=== PATIENT | male | born 1955 | race Caucasian/White ===

== ENCOUNTER 2016-11-21 13:00 | Emergency (ER) | payer MEDICARE ==
[2016-11-21] MEDS ORDERED: APRESOLINE IV ONE ×2 (14:20→17:54)
--- NOTE | 2016-11-21 14:37 | Emergency Department Report ---
HPI - General Chief Complaint: Hypoglycemia Time Seen by Provider: 11/21/16 13:40 - HPI HPI: This is a 61-year-old male presents to the emergency department from dialysis with complaint of generalized weakness, blurry vision and elevated blood pressure despite finishing dialysis. The patient's primary care doctor is Dr. Abdoul Peña and his automotive parts counter person is Dr. Knapp. The patient gets dialysis on Sunday, and Sunday and completed his dialysis today. The patient takes labetalol and hydralazine for his blood pressure but despite this, and despite dialysis, presents with very elevated blood pressure. The patient says that he has been feeling like he has been having blurry vision since dialysis today but denies any headache, slurred speech, chest pain, shortness of breath, fever, nausea or vomiting. He did not take anything and was not given anything for symptoms otherwise prior to presentation. ED Past Medical Hx - Past Medical History Previous Medical History?: Yes Hx Hypertension: Yes Hx Congestive Heart Failure: Yes Hx Diabetes: Yes (Type 2) Hx Deep Vein Thrombosis: Yes Hx GERD: Yes Hx Liver Disease: Yes Hx Renal Disease: Yes (Dialysis, sun, , sun) Hx HIV: No Additional medical history: Anemia and renal disease, iron deficiency, secondary hypoparathyroidism of renal origin - Surgical History Past Surgical History?: Yes Additional Surgical History: left arm AV grafts - Social History Smoking Status: Never Smoker Substance Use Type: None - Medications Home Medications: Home Medications Medication Instructions Recorded Confirmed Last Taken Type Calcium Acetate [Phoslo] 667 mg PO TID 01/08/16 11/07/16 11/06/16 History Folic Acid [Folvite] 1 mg PO QDAY 01/08/16 11/07/16 11/06/16 History hydrALAZINE [Apresoline TAB] 100 mg PO Q8HR #90 tablet 01/14/16 11/06/16 Rx Labetalol [Normodyne TAB] 200 mg PO TID 07/29/16 11/07/16 11/06/16 History Hydralazine HCl [Apresoline TAB] 100 mg PO Q8HR 11/07/16 11/07/16 11/06/16 History NIFEdipine XL [Procardia Xl] 60 mg PO BID 11/07/16 11/07/16 11/06/16 History Vit B Cplx #11/FA/C/Biot/Zn Ox 1 each PO DAILY 11/07/16 11/07/16 11/06/16 History [Dialyvite with Zinc Tablet] ED Review of Systems ROS: Stated complaint: LOW BLOOD SUGAR Other details as noted in HPI Comment: All other systems reviewed and negative Constitutional: weakness. denies: chills, fever Eyes: vision change (blurry vision). denies: eye pain, eye discharge ENT: denies: ear pain, throat pain Respiratory: denies: cough, shortness of breath, wheezing Cardiovascular: denies: chest pain, palpitations Gastrointestinal: denies: abdominal pain, nausea, diarrhea Genitourinary: denies: urgency, dysuria Musculoskeletal: denies: back pain, joint swelling, arthralgia Skin: denies: rash, lesions Neurological: weakness. denies: headache, numbness, paresthesias Physical Exam - Physical Exam Vital Signs: Vital Signs 11/21/16 13:42 Temperature 98.1 F Pulse Rate 84 Respiratory 16 Rate Blood Pressure 213/75 [Left] O2 Sat by Pulse 99 Oximetry Physical Exam: GENERAL: The patient is well-developed well-nourished. HEENT: Normocephalic. Atraumatic. Extraocular motions are intact. Patient has moist mucous membranes. Pupils equal reactive to light bilaterally. No nystagmus. Visual acuity: OD 20/70, OS 20/70 without glasses NECK: Supple. Trachea is midline. CHEST/LUNGS: Clear to auscultation. There is no respiratory distress noted. HEART/CARDIOVASCULAR: Regular. There is no tachycardia. There is no gallop rub or murmur. ABDOMEN: Abdomen is soft, nontender. Patient has normal bowel sounds. There is no abdominal distention. SKIN: Skin is warm and dry. NEURO: The patient is awake, alert, and oriented. The patient is cooperative. The patient has no focal neurologic deficits. The patient has normal speech. No gait abnormalities. MUSCULOSKELETAL: There is no tenderness or deformity. There is no limitation range of motion. There is no evidence of acute injury. Muscle strength 5 out of 5 upper and lower extremities bilaterally. Patient has a patent dialysis fistula to the left upper extremity. ED Course Vital Signs 11/21/16 13:42 Temperature 98.1 F Pulse Rate 84 Respiratory 16 Rate Blood Pressure 213/75 [Left] O2 Sat by Pulse 99 Oximetry ED Medical Decision Making - Lab Data Result diagrams: 11/21/16 14:09 11/21/16 14:09 - EKG Data -: EKG Interpreted by Me EKG shows normal: sinus rhythm, axis, intervals, QRS complexes (LVH), ST-T waves Rate: normal - EKG Data When compared to previous EKG there are: no significant change Interpretation: unchanged when compared t (11/07/16) - Radiology Data Radiology results: report reviewed CT of the head does not show any acute process including no hemorrhage, mass, shift, diffuse edema or skull fracture. - Medical Decision Making This is a 61-year-old male who presents to the emergency department from dialysis after he began feeling weak and fatigued as well as having some blurry vision. Patient was evaluated with physical exam, labs, imaging EKG. Physical exam the patient does not appear to have any focal, motor or sensory deficits other than he does have some decreased visual acuity. Cranial nerves II through XII are grossly intact. The patient says that he wears reading glasses but refused to wear them during the visual acuity test saying that he only uses it when he is reading close-up. He had a CT of the head without contrast that did not show any bleed, shift, mass or any acute process. EKG just shows some LVH. Patient's labs are mostly unremarkable other than the chronic kidney disease which is not new as the patient does dialysis. There is no hyperkalemia , signs of infection, electrolyte abnormality, glucose abnormalities. Patient did have some hypertensive issues here. He received a few doses of labetalol and/or hydralazine and his blood pressures come down to a much more reasonable level. It is still hypertensive but the patient has blood pressure medications that he is due to take this evening. Upon reevaluation the patient says that he is feeling much better. His vision is improved. There are no other deficits to show concern for acute stroke. The patient has been encouraged to follow-up with his primary care doctor and automotive parts counter person and has also been given a referral for a local education general manager. We discussed staying away from foods that are high in salt and caffeinated products to assist with the blood pressure. He will keep a blood pressure log. He will return to the ER with any worsening of symptoms or any acute distress. He understands and agrees to the plan. - Differential Diagnosis TIA, hypertensive urgency, hypoglycemia, dysrhythmia Critical Care Time: No Critical care attestation.: If time is entered above; I have spent that time in minutes in the direct care of this critically ill patient, excluding procedure time. ED Disposition Clinical Impression: Blurred vision, Hypertensive urgency, ESRD (end stage renal disease) on dialysis Disposition: DISCHARGED TO HOME OR SELFCARE Is pt being admited?: No Condition: Stable Instructions: Chronic Kidney Disease (ED), Hypertension (ED), Blurred Vision ( ED) Additional Instructions: Please follow-up with your primary care doctor as well as your automotive parts counter person in the next few days. I have also given you a referral for a local education general manager , Dr. Susan Kwon, to follow up regarding or blurred vision. Return to the emergency department with any worsening of your symptoms or any acute distress. Until you taking your blood pressure medications. Try to stay with him foods that are high in salt and caffeinated products to assist with your blood pressure. Referrals: PRIMARY CARE, [Primary Care Provider] - 3-5 Days JESI BLOOD MD [Staff Physician] - 3-5 Days SUSAN KWON MD [Staff Physician] - 3-5 Days Time of Disposition: 19:24 Print Language: PERSIAN
[2016-11-21 15:13] LABS: Basophils % (Auto) 0.4 % (0.0-1.8); Eosinophils % (Auto) 3.9 % (0.0-4.3); Hematocrit 33.1 % (35.5-45.6); Mean Corpuscular HGB Conc 33 % (32-34); Mean Corpuscular Hemoglobin 33 pg (28-32); Mean Corpuscular Volume 99 fl (84-94); Platelet Count 130 K/mm3 (140-440); Red Blood Count 3.35 M/mm3 (3.65-5.03); Red Cell Distribution Width 17.6 % (13.2-15.2)
[2016-11-21 15:21] LABS: Albumin/Globulin Ratio 1.3 %; BUN/Creatinine Ratio 4.66; Bilirubin,Total 0.4 mg/dL (0.1-1.2); Calcium 8.3 mg/dL (8.4-10.2); Chloride 93.8 mmol/L (98-107); Potassium 4.7 mmol/L (3.6-5.0); Total Protein 7.1 g/dL (6.3-8.2)
--- NOTE | 2016-11-21 15:33 | Cat Scan Report ---
CT HEAD WITHOUT CONTRAST: HISTORY: Visual changes, weakness. Serial contiguous axial images were obtained through the cranium. Intravenous contrast material was not administered. The ventricles are normal in size and appearance. There is no mass effect or midline shift. No areas of abnormally increased or decreased attenuation are seen. No mass lesion is seen. The mastoid air cells and visualized portions of the sinuses are normal. IMPRESSION: Cranial CT scan within normal limits. No significant change since 01/08/16.
[2016-11-21] MEDS ORDERED: NORMODYNE IV ONE (15:53)
[2016-11-21 18:21] VITALS: BP 171/59
== END 2016-11-21 20:25 | disposition home or self-care (01) ==
LOC: ED 13:00
DX: I12.0 Hypertensive chronic kidney disease with stage 5 chronic kidney disease or end stage renal disease (principal); N18.6 End stage renal disease; H53.8 Other visual disturbances; I50.9 Heart failure, unspecified; E11.9 Type 2 diabetes mellitus without complications; K21.9 Gastro-esophageal reflux disease without esophagitis; D64.9 Anemia, unspecified; Z99.2 Dependence on renal dialysis; Z86.718 Personal history of other venous thrombosis and embolism
CPT/HCPCS: 36415; 70450; 80053; 82805; 82962; 84443; 85025; 93005; 93010; 96374; 96375; 96376; 99285; J0360

== ENCOUNTER 2017-08-22 16:04 | Emergency (ER) | payer MEDICARE ==
[2017-08-22 16:26] VITALS: BP 125/45
[2017-08-22 16:49] LABS: Eosinophils % (Auto) 9.1 % (0.0-4.3); Hematocrit 32.4 % (35.5-45.6); Mean Corpuscular HGB Conc 34 % (32-34); Mean Corpuscular Hemoglobin 32 pg (28-32); Mean Corpuscular Volume 95 fl (84-94); Platelet Count 150 K/mm3 (140-440); Red Blood Count 3.41 M/mm3 (3.65-5.03); Red Cell Distribution Width 17.7 % (13.2-15.2); White Blood Count 3.7 K/mm3 (4.5-11.0)
[2017-08-22 17:06] LABS: Calcium 8.7 mg/dL (8.4-10.2); Chloride 93.7 mmol/L (98-107); Potassium 4.5 mmol/L (3.6-5.0)
--- NOTE | 2017-08-22 17:36 | XRay Report ---
FINAL REPORT PROCEDURE: XR CHEST ROUTINE 2V TECHNIQUE: Two view PA lateral chest HISTORY: Shortness of breath COMPARISON: No prior studies are available for comparison. FINDINGS: Top-normal heart size. Aortic atherosclerosis.Patchy infiltrative process in the right lower lung zone with small bilateral pleural effusions evident. Hyperinflated lungs with depressed hemidiaphragm on the right greater than left. Moderate central congestion. 1.3 x 1.4 centimeter nodular opacity projects in the left lower lung zone indeterminate for pulmonary nodule or nipple shadow.. No prior chest x-ray on file. Consider CT chest preferably with IV contrast to further evaluate as warranted. Underlying malignancy is not excludable and is the diagnosis of exclusion. IMPRESSION: Bilateral pleural effusions. Patchy infiltrate right lower lung zone. Nodular opacity projects over left lower lung zone
== END 2017-08-22 23:00 | disposition left against medical advice (07) ==
LOC: ED 16:04
DX: R00.2 Palpitations (principal); Z53.21 Procedure and treatment not carried out due to patient leaving prior to being seen by health care provider
CPT/HCPCS: 36415; 71020; 80048; 80061; 84484; 85025; 93005; 93010

== ENCOUNTER 2017-12-31 09:42 | Inpatient (IN) | payer MEDICARE ==
[2017-12-31] MEDS ORDERED: NACL 0.9% 1000 ML 1,000 ML IV ONE (10:26)
[2017-12-31] MEDS ORDERED: PEPCID IV ONE (10:27)
[2017-12-31] MEDS ORDERED: TORADOL IV ONE (10:27)
[2017-12-31] MEDS ORDERED: ZOFRAN IV ONE (10:27)
--- NOTE | 2017-12-31 10:29 | Emergency Department Report ---
Blank Doc - Documentation Documentation: Patient is a 62-year-old male who is presenting with 2 days of headache nausea without vomiting and diarrhea. Patient also has some crampy lower abdominal discomfort as well. Patient will be moved to the treatment room to undergo CT and received IV fluids meds for symptomatic relief.
[2017-12-31 10:46] LABS: Basophils # (Auto) 0.1 K/mm3 (0.0-0.1); Basophils % (Auto) 0.6 % (0.0-1.8); Eosinophils # (Auto) 0.3 K/mm3 (0.0-0.4); Eosinophils % (Auto) 3.4 % (0.0-4.3); Hemoglobin 12.8 gm/dl (11.8-15.2); Lymphocytes # (Auto) 0.6 K/mm3 (1.2-5.4); Lymphocytes % (Auto) 5.6 % (13.4-35.0); Mean Corpuscular HGB Conc 33 % (32-34); Mean Corpuscular Hemoglobin 33 pg (28-32); Mean Corpuscular Volume 99 fl (84-94); Monocytes # (Auto) 0.5 K/mm3 (0.0-0.8); Monocytes % (Auto) 4.9 % (0.0-7.3); Platelet Count 179 K/mm3 (140-440); Red Blood Count 3.95 M/mm3 (3.65-5.03); Red Cell Distribution Width 17.1 % (13.2-15.2)
[2017-12-31 11:01] LABS: Albumin 4.6 g/dL (3.9-5)
--- NOTE | 2017-12-31 11:22 | Emergency Department Report ---
ED Abdominal Pain HPI - General Chief Complaint: Nausea/Vomiting/Diarrhea Stated Complaint: WEAKNESS Time Seen by Provider: 12/31/17 10:20 Source: patient Mode of arrival: Ambulatory Limitations: Language Barrier - History of Present Illness Initial Comments: This is a 62-year-old male brought by daughter nontoxic, well nourished in appearance, no acute signs of distress presents to the ED with c/o of bilateral lower abdominal pain, nausea, vomiting, diarrhea and headache 2 days. Patient is limited in Syriac speaking several daughter is going to have any. Patient denies any radiation of pain. Patient denies any blurry vision or visual changes. Patient denies thunderclap headache. Patient denies any neck pain, stiff neck, chest pain, shortness of breathe, numbness, tingling. Patient denies any recent travels. Patient stated he is curretnly on dialysis with last one on Sunday and next schedule dialysis is Sunday. Patient denies any allergies. PMH includes CHF, DVT, diabetes, HIV, liver disease and renal disease. MD Complaint: abdominal pain -: days(s) (2) Location: LLQ, RLQ Radiation: none Migration to: no migration Severity: mild Severity scale (0 -10): 8 Quality: aching Consistency: constant Improves With: nothing Worsens With: nothing Associated Symptoms: nausea, vomiting, diarrhea. denies: fever, chills, constipation, dysuria, hematemesis, hematochezia, melena, hematuria, anorexia, syncope - Related Data Home Medications Medication Instructions Recorded Confirmed Last Taken Calcium Acetate [Phoslo] 667 mg PO TID 01/08/16 12/31/17 11/06/16 B Complex 11/Folic/C/Biot/Zinc 1 each PO DAILY 11/07/16 12/31/17 11/06/16 [Dialyvite with Zinc Tablet] NIFEdipine XL [Procardia Xl] 60 mg PO QDAY 11/07/16 12/31/17 11/06/16 Glimepiride [Amaryl] 4 mg PO BID 01/03/17 12/31/17 Unknown Lipase/Protease/Amylase [Jamaal Dr 1 cap PO TID 01/03/17 12/31/17 Unknown 24,000 Units Capsule] Omeprazole 40 mg PO QAM 05/03/17 04/30/18 Unknown Allergies Allergy/AdvReac Type Severity Reaction Status Date / Time No Known Allergies Allergy Verified 04/08/14 10:42 ED Review of Systems ROS: Stated complaint: WEAKNESS Other details as noted in HPI Constitutional: denies: chills, fever Eyes: denies: eye pain, eye discharge, vision change ENT: denies: ear pain, throat pain Respiratory: denies: cough, shortness of breath, wheezing Cardiovascular: denies: chest pain, palpitations Endocrine: no symptoms reported Gastrointestinal: abdominal pain, nausea, vomiting. denies: diarrhea, constipation Genitourinary: denies: urgency, dysuria Musculoskeletal: denies: back pain, joint swelling, arthralgia Skin: denies: rash, lesions Neurological: headache. denies: weakness, paresthesias Psychiatric: denies: anxiety, depression Hematological/Lymphatic: denies: easy bleeding, easy bruising ED Past Medical Hx - Past Medical History Hx Hypertension: Yes Hx Congestive Heart Failure: Yes Hx Diabetes: Yes (Type 2) Hx Deep Vein Thrombosis: Yes Hx GERD: Yes Hx Liver Disease: Yes Hx Renal Disease: Yes (Dialysis, tue, thur, sat) Hx HIV: No Additional medical history: Anemia and renal disease, iron deficiency, secondary hypoparathyroidism of renal origin - Surgical History Additional Surgical History: left arm AV grafts - Social History Smoking Status: Never Smoker Substance Use Type: None - Medications Home Medications: Home Medications Medication Instructions Recorded Confirmed Last Taken Type Calcium Acetate [Phoslo] 667 mg PO TID 01/08/16 12/31/17 11/06/16 History B Complex 11/Folic/C/Biot/Zinc 1 each PO DAILY 11/07/16 12/31/17 11/06/16 History [Dialyvite with Zinc Tablet] NIFEdipine XL [Procardia Xl] 60 mg PO QDAY 11/07/16 12/31/17 11/06/16 History Glimepiride [Amaryl] 4 mg PO BID 01/03/17 12/31/17 Unknown History Lipase/Protease/Amylase [[place] Dr 1 cap PO TID 01/03/17 12/31/17 Unknown History 24,000 Units Capsule] Omeprazole 40 mg PO QAM 01/03/17 12/31/17 Unknown History ED Physical Exam - General Limitations: Language Barrier General appearance: alert, in no apparent distress - Head Head exam: Present: atraumatic, normocephalic - Eye Eye exam: Present: normal appearance, PERRL, EOMI Pupils: Present: normal accommodation - ENT ENT exam: Present: normal exam, mucous membranes moist - Neck Neck exam: Present: normal inspection, full ROM. Absent: tenderness, meningismus, lymphadenopathy - Respiratory Respiratory exam: Present: normal lung sounds bilaterally. Absent: respiratory distress, wheezes, rales, rhonchi, stridor, chest wall tenderness, accessory muscle use, decreased breath sounds, prolonged expiratory - Cardiovascular Cardiovascular Exam: Present: regular rate, normal rhythm, normal heart sounds. Absent: bradycardia, tachycardia, irregular rhythm, systolic murmur, diastolic murmur, rubs, gallop - GI/Abdominal GI/Abdominal exam: Present: soft, tenderness (bilateral upper and lower abdomen) , normal bowel sounds. Absent: distended, guarding, rebound, rigid, diminished bowel sounds - Rectal Rectal exam: Present: deferred - Extremities Exam Extremities exam: Present: normal inspection, full ROM, normal capillary refill. Absent: tenderness, calf tenderness - Back Exam Back exam: Present: normal inspection, full ROM. Absent: tenderness, CVA tenderness (R), CVA tenderness (L), muscle spasm, paraspinal tenderness, vertebral tenderness, rash noted - Neurological Exam Neurological exam: Present: alert, oriented X3, CN II-XII intact, normal gait - Expanded Neurological Exam Expanded Patient oriented to: Present: person, place, time Cranial nerves: EOM's Intact: Normal, Gag Reflex: Normal, Facial Sensation: Normal Cerebellar function: Finger to Nose: Normal Upper motor neuron: Pronator Drift: Normal, Sensory Extinction: Normal Sensory exam: Upper Extremity Light Touch: Normal, Upper Extremity Pin Prick: Normal, Upper Extremity Temperature: Normal, UE 2 Point Discrimination: Normal, Lower Extremity Light Touch: Normal, Lower Extremity Pin Prick: Normal, Lower Extremity Temperature: Normal, LE 2 Point Discrimination: Normal Motor strength exam: RUE: 5, LUE: 5, RLE: 5, LLE: 5 Best Eye Response ([place]): (4) open spontaneously Best Motor Response ([place]): (6) obeys commands Best Verbal Response ([place]): (5) oriented [place] Total: 15 - Psychiatric Psychiatric exam: Present: normal affect, normal mood - Skin Skin exam: Present: warm, dry, intact, normal color. Absent: rash ED Course Vital Signs 12/31/17 09:57 Temperature 98.6 F Pulse Rate 73 Respiratory 18 Rate Blood Pressure 133/86 O2 Sat by Pulse 95 Oximetry - Reevaluation(s) Reevaluation #1: 12/31/17 11:29 Patient is speaking in full sentences with no signs of distress noted. - Consultations Consultation #1: 12/31/17 11:29 Patient has been consulted with Dr. Oconnor about patient history, physical exam , and labs and examined and screened patient and agrees to ED plan of care. Consultation #2: 12/31/17 13:[address] Sebas Lezama patients map maker and states that the patient on the hospitalist. Consultation #3: 12/31/17 13:47 Dr. Ledesma was consulted by patient history, physical exam, and laboratory findings an access patient on his services and instructed me to bridge orders with telemetry. 12/31/17 14:48 Dr. Ledesma requested me to put in a order for calcium gluconate 2,000 mg IV to be given now. ED Medical Decision Making - Lab Data Result diagrams: 12/31/17 10:36 12/31/17 10:36 - Medical Decision Making This is a 62-year-old male that presents with hyperkalemia, nausea, vomiting and abdominal pain. Patient stable was examined by me and Dr. Oconnor. As per Dr. Oconnor order, patient received [address] abd obtained with no acute abnormalities. Patient was discussed with his map maker advised patient to be admitted. Hospitalist Dr. Titus was consulted and accepts the patient under his services. EKG obtained. At time of admission, the patient does not seem toxic or ill in appearance. No acute signs of distress noted. Patient agrees to admission treatment plan of care. No further questions noted by the patient. Critical care attestation.: If time is entered above; I have spent that time in minutes in the direct care of this critically ill patient, excluding procedure time. ED Disposition Clinical Impression: Hyperkalemia Abdominal pain Qualifiers: Abdominal location: unspecified location Qualified Code(s): R10.9 - Unspecified abdominal pain Nausea & vomiting Qualifiers: Vomiting type: unspecified Vomiting Intractability: non-intractable Qualified Code(s): R11.2 - Nausea with vomiting, unspecified Disposition: DC-09 OP ADMIT IP TO THIS HOSP Is pt being admited?: Yes Condition: Stable Referrals: PRIMARY CARE,MD [Primary Care Provider] - 3-5 Days
--- NOTE | 2017-12-31 11:56 | Cat Scan Report ---
CT ABDOMEN PELVIS WITHOUT CONTRAST: HISTORY: Diarrhea, lower abdominal pain. COMPARISON: CT abdomen pelvis 11/02/13. TECHNIQUE: Helical CT in 1.25mm intervals without IV contrast. Sagittal and coronal reconstructions. FINDINGS: Lung bases: Mild cardiomegaly and small pericardial effusion. Small complex left pleural effusion with evidence of loculation. Subpleural scarring in the right lower lobe posteriorly. Liver: Normal size and attenuation. 1.9 cm right hepatic lobe hypodensity is identified in incompletely evaluated on noncontrast CT. This probably represents a cavernous hemangioma. This appears unchanged since the MR abdomen dated 02/04/14. Biliary system: Normal. Pancreas: Normal. Spleen: Normal. Kidneys/ureters/bladder: Both kidneys are atrophic with scattered tiny cysts. There are approximately 6 calyceal stones in the right kidney measuring up to 3 mm. There extensive bilateral renal vascular calcifications. No evidence for hydronephrosis. The ureters and bladder are unremarkable. The prostate gland is normal size. Adrenal glands: Normal. Aorta: Diffuse calcifications. The left common iliac stent is in place. No aneurysm. Intestines: Unremarkable given no oral contrast was administered. Appendix: Normal. Ascites: None. Adenopathy: None. Musculoskeletal: No suspicious bony lesion or fracture. Mild thoracolumbar spondylosis. IMPRESSION: No acute abdominal process is identified. Chronic renal parenchymal disease. Right nephrolithiasis, nonobstructing. Scattered tiny renal cysts. 1.9 cm right hepatic lobe hypodensity most consistent with a hemangioma. Diffuse aortic calcifications. Mild cardiomegaly, small pericardial effusion, and small complex left pleural effusion.
[2017-12-31] MEDS ORDERED: KIONEX PR ONE (12:39)
[2017-12-31] MEDS ORDERED: CALCIUM GLUCONATE 2,000 MG in NACL 0.9% 100 ML IV ONE (15:48)
[2017-12-31] MEDS ORDERED: NACL 0.9 (PRIMING MACHINE ONLY DIALYSIS) MC ONE (18:15)
--- NOTE | 2017-12-31 19:08 | Consultation ---
History of Present Illness - Reason for Consult Consult date: 12/31/17 - History of Present Illness pt with abdomen pain, nausea, vomitings, diarrhoea, hyperkalemia. pt was seen and examined during Hemodialysis around 6.30 PM. BP-179/73, P-65, afebrile. Reported to have diarrhoea during HD, had to go to rest room 4 times while on machine. Denies abdomen pain at present time Medications and Allergies Allergies Allergy/AdvReac Type Severity Reaction Status Date / Time No Known Allergies Allergy Verified 04/08/14 10:42 Home Medications Medication Instructions Recorded Confirmed Last Taken Type Calcium Acetate [Phoslo] 667 mg PO TID 01/08/16 12/31/17 11/06/16 History B Complex 11/Folic/C/Biot/Zinc 1 each PO DAILY 11/07/16 12/31/17 11/06/16 History [Dialyvite with Zinc Tablet] NIFEdipine XL [Procardia Xl] 60 mg PO QDAY 11/07/16 12/31/17 11/06/16 History Glimepiride [Amaryl] 4 mg PO BID 01/03/17 12/31/17 Unknown History Lipase/Protease/Amylase [Creon Dr 1 cap PO TID 01/03/17 12/31/17 Unknown History 24,000 Units Capsule] Omeprazole 40 mg PO QAM 01/03/17 12/31/17 Unknown History Exam - Constitutional Vitals: Temp Pulse Resp BP Pulse Ox 97.7 F 65 18 163/71 96 12/31/17 15:30 12/31/17 18:45 12/31/17 15:30 12/31/17 18:45 12/31/17 14:47 Results - Labs CBC & Chem 7: 12/31/17 10:36 12/31/17 10:36 Labs: Abnormal lab results 12/31/17 12/31/17 Range/Units 10:36 10:36 MCV 99 H (84-94) fl MCH 33 H (28-32) pg RDW 17.1 H (13.2-15.2) % Lymph % (Auto) 5.6 L (13.4-35.0) % Lymph # 0.6 L (1.2-5.4) K/mm3 Seg Neutrophils % 85.5 H (40.0-70.0) % Seg Neutrophils # 8.6 H (1.8-7.7) K/mm3 Potassium 6.4 H* (3.6-5.0) mmol/L Chloride 94.6 L (98-107) mmol/L BUN 59 H (9-20) mg/dL Creatinine 8.2 H (0.8-1.5) mg/dL Glucose 113 H (75-100) mg/dL Calcium 8.0 L (8.4-10.2) mg/dL Lipase 105 H (13-60) units/L
--- NOTE | 2018-01-01 00:01 | History and Physical Report ---
History of Present Illness Date of examination: 12/31/17 Date of admission: 12/31/17 13:45 Chief complaint: Chief complaint: Vomiting for 2 days. History of present illness: History of Present Illness 62-year-old male presents with nausea vomiting and headache for 2 days. Patient speaks Uzbek. No chest pain. No shortness of breath. Patient is on dialysis. Patient has a high potassium for which patient is being admitted and also symptomatic treatment for vomiting. Patient has a history of diabetes and end-stage renal disease and hypertension. No fever no chills. - Past Medical History Hx Hypertension: Yes Hx Congestive Heart Failure: Yes Hx Diabetes: Yes (Type 2) Hx Deep Vein Thrombosis: Yes Hx GERD: Yes Hx Liver Disease: Yes Hx Renal Disease: Yes (Dialysis, tue, thur, sat) Hx HIV: No Additional medical history: Anemia and renal disease, iron deficiency, secondary hypoparathyroidism of renal origin - Surgical History Additional Surgical History: left arm AV grafts - Social History Smoking Status: Never Smoker Substance Use Type: None Family history Hypertension - Medications Home Medications: Home Medications Medication Instructions Recorded Confirmed Last Taken Type Calcium Acetate [Phoslo] 667 mg PO TID 01/08/16 12/31/17 11/06/16 History B Complex 11/Folic/C/Biot/Zinc 1 each PO DAILY 11/07/16 12/31/17 11/06/16 History [Dialyvite with Zinc Tablet] NIFEdipine XL [Procardia Xl] 60 mg PO QDAY 11/07/16 12/31/17 11/06/16 History Glimepiride [Amaryl] 4 mg PO BID 01/03/17 12/31/17 Unknown History Lipase/Protease/Amylase [[place] Dr 1 cap PO TID 01/03/17 12/31/17 Unknown History 24,000 Units Capsule] Omeprazole 40 mg PO QAM 01/03/17 12/31/17 Unknown History Review of Systems ROS: Stated complaint: WEAKNESS Other details as noted in HPI Constitutional: denies: chills, fever Eyes: denies: eye pain, eye discharge, vision change ENT: denies: ear pain, throat pain Respiratory: denies: cough, shortness of breath, wheezing Cardiovascular: denies: chest pain, palpitations Endocrine: no symptoms reported Gastrointestinal: abdominal pain, nausea, vomiting. denies: diarrhea, constipation Genitourinary: denies: urgency, dysuria Musculoskeletal: denies: back pain, joint swelling, arthralgia Skin: denies: rash, lesions Neurological: headache. denies: weakness, paresthesias Psychiatric: denies: anxiety, depression Hematological/Lymphatic: denies: easy bleeding, easy bruising 14 point review of systems are otherwise negative Medications and Allergies Allergies Allergy/AdvReac Type Severity Reaction Status Date / Time No Known Allergies Allergy Verified 04/08/14 10:42 Home Medications Medication Instructions Recorded Confirmed Last Taken Type Calcium Acetate [Phoslo] 667 mg PO TID 01/08/16 12/31/17 11/06/16 History B Complex 11/Folic/C/Biot/Zinc 1 each PO DAILY 11/07/16 12/31/17 11/06/16 History [Dialyvite with Zinc Tablet] NIFEdipine XL [Procardia Xl] 60 mg PO QDAY 11/07/16 12/31/17 11/06/16 History Glimepiride [Amaryl] 4 mg PO BID 01/03/17 12/31/17 Unknown History Lipase/Protease/Amylase [Creon Dr 1 cap PO TID 01/03/17 12/31/17 Unknown History 24,000 Units Capsule] Omeprazole 40 mg PO QAM 01/03/17 12/31/17 Unknown History Exam - Physical Exam Narrative exam: Lying in bed comfortably - Constitutional Vitals: Temp Pulse Resp BP Pulse Ox 98.8 F 65 20 185/65 99 12/31/17 20:30 12/31/17 20:30 12/31/17 20:30 12/31/17 20:30 12/31/17 20:30 General appearance: Present: no acute distress, well-nourished - EENT Eyes: Present: PERRL ENT: hearing intact, clear oral mucosa - Neck Neck: Present: supple, normal ROM - Respiratory Respiratory effort: normal Respiratory: bilateral: CTA - Cardiovascular Heart rate: 80 Rhythm: regular Heart Sounds: Present: S1 & S2. Absent: rub, click - Extremities Extremities: no ischemia, pulses intact, pulses symmetrical, No edema Peripheral Pulses: within normal limits - Abdominal General gastrointestinal: Present: soft, non-tender, non-distended, normal bowel sounds Male genitourinary: Present: normal - Rectal Rectal Exam: deferred - Integumentary Integumentary: Present: clear, warm, dry - Musculoskeletal Musculoskeletal: gait normal, strength equal bilaterally - Psychiatric Psychiatric: appropriate mood/affect, intact judgment & insight - Neurologic Neurologic: CNII-XII intact, moves all extremities - Allied Health Allied health notes reviewed: nursing, case management Results - Labs CBC & Chem 7: 12/31/17 10:36 12/31/17 10:36 Labs: Laboratory Last Values WBC 10.0 K/mm3 (4.5-11.0) 12/31/17 10:36 RBC 3.95 M/mm3 (3.65-5.03) 12/31/17 10:36 Hgb 12.8 gm/dl (11.8-15.2) 12/31/17 10:36 Hct 39.0 % (35.5-45.6) 12/31/17 10:36 MCV 99 fl (84-94) H 12/31/17 10:36 MCH 33 pg (28-32) H 12/31/17 10:36 MCHC 33 % (32-34) 12/31/17 10:36 RDW 17.1 % (13.2-15.2) H 12/31/17 10:36 Plt Count 179 K/mm3 (140-440) 12/31/17 10:36 Lymph % (Auto) 5.6 % (13.4-35.0) L 12/31/17 10:36 [place] % (Auto) 4.9 % (0.0-7.3) 12/31/17 10:36 Eos % (Auto) 3.4 % (0.0-4.3) 12/31/17 10:36 Baso % (Auto) 0.6 % (0.0-1.8) 12/31/17 10:36 Lymph # 0.6 K/mm3 (1.2-5.4) L 12/31/17 10:36 [place] # 0.5 K/mm3 (0.0-0.8) 12/31/17 10:36 Eos # 0.3 K/mm3 (0.0-0.4) 12/31/17 10:36 Baso # 0.1 K/mm3 (0.0-0.1) 12/31/17 10:36 Seg Neutrophils % 85.5 % (40.0-70.0) H 12/31/17 10:36 Seg Neutrophils # 8.6 K/mm3 (1.8-7.7) H 12/31/17 10:36 Sodium 138 mmol/L (137-145) 12/31/17 10:36 Potassium 6.4 mmol/L (3.6-5.0) H* 12/31/17 10:36 Chloride 94.6 mmol/L (98-107) L 12/31/17 10:36 Carbon Dioxide 25 mmol/L (22-30) 12/31/17 10:36 Anion Gap 25 mmol/L 12/31/17 10:36 BUN 59 mg/dL (9-20) H 12/31/17 10:36 Creatinine 8.2 mg/dL (0.8-1.5) H 12/31/17 10:36 Estimated GFR 7 ml/min 12/31/17 10:36 BUN/Creatinine Ratio 7 % 12/31/17 10:36 Glucose 113 mg/dL (75-100) H 12/31/17 10:36 Calcium 8.0 mg/dL (8.4-10.2) L 12/31/17 10:36 Total Bilirubin 0.50 mg/dL (0.1-1.2) 12/31/17 10:36 AST 18 units/L (5-40) 12/31/17 10:36 ALT 14 units/L (7-56) 12/31/17 10:36 Alkaline Phosphatase 120 units/L (35-129) 12/31/17 10:36 Total Protein 7.7 g/dL (6.3-8.2) 12/31/17 10:36 Albumin 4.6 g/dL (3.9-5) 12/31/17 10:36 Albumin/Globulin Ratio 1.5 % 12/31/17 10:36 Lipase 105 units/L (13-60) H 12/31/17 10:36 - Imaging and Cardiology Imaging and Cardiology: Abdominal CT IMPRESSION: No acute abdominal process is identified. Chronic renal parenchymal disease. Right nephrolithiasis, nonobstructing. Scattered tiny renal cysts. 1.9 cm right hepatic lobe hypodensity most consistent with a hemangioma. Diffuse aortic calcifications. Mild cardiomegaly, small pericardial effusion, and small complex left pleural effusion. Assessment and Plan Advance Directives: Yes (full code) VTE prophylaxis?: Chemical ( full code) Plan of care discussed with patient/family: Yes - Patient Problems (1) Acute hyperkalemia Current Visit: No Status: Acute Plan to address problem: Patient given Kayexalate and calcium gluconate Recheck potassium Emergent dialysis if necessary (2) ESRD (end stage renal disease) on dialysis Current Visit: Yes Status: Chronic Plan to address problem: Nephrology consulted Hemodialysis to continue (3) Hypertension Current Visit: Yes Status: Chronic Qualifiers: Hypertension type: essential hypertension Qualified Code(s): I10 - Essential (primary) hypertension Plan to address problem: Continue antihypertensives in the form of nifedipine etc. (4) Type 2 diabetes mellitus Current Visit: Yes Status: Chronic Plan to address problem: Continue oral hypoglycemics and coverage Check hemoglobin A1c (5) GERD (gastroesophageal reflux disease) Current Visit: Yes Status: Chronic Qualifiers: Esophagitis presence: without esophagitis Qualified Code(s): K21.9 - Gastro -esophageal reflux disease without esophagitis Plan to address problem: Continue PPIs (6) DVT prophylaxis Current Visit: Yes Status: Acute Plan to address problem: Continue heparin
[2018-01-01] MEDS ORDERED: SODIUM CHLORIDE FLUSH SYRINGE 10 ML IV PRN (00:05)
[2018-01-01] MEDS ORDERED: ZOFRAN IV PRN (00:05)
[2018-01-01] MEDS ORDERED: MORPHINE IV PRN (00:05)
[2018-01-01] MEDS ORDERED: PERCOCET 5/325 PO PRN (00:05)
[2018-01-01] MEDS ORDERED: TYLENOL PO PRN (00:05)
[2018-01-01] MEDS ORDERED: AMBIEN PO PRN (00:05)
[2018-01-01] MEDS ORDERED: PROTEASE PO SCH (08:00)
[2018-01-01] MEDS ORDERED: LIPASE PO SCH (08:00)
[2018-01-01] MEDS ORDERED: AMYLASE PO SCH (08:00)
--- NOTE | 2018-01-01 08:55 | Consultation ---
RENAL CONSULTATION REASON FOR CONSULTATION: Renal failure and hyperkalemia. HISTORY OF PRESENT ILLNESS: This 62-year-old male with end-stage renal disease, hypertension, was brought to the Emergency Room with complaints of nausea, diarrhea, and headache and upper mid abdomen pain. CT scan of the abdomen and pelvis without IV contrast was reported to have no acute abdominal process. Nonobstructing right nephrolithiasis, diffuse aortic calcifications. The patient [facility] on Sunday, , Sunday. His last treatment was the day before yesterday, uneventful. The patient admits attending a big birthday republican in the family. PAST MEDICAL HISTORY: Hypertension, end-stage renal disease. PERSONAL HISTORY: Denies smoking, alcohol, or drug abuse. FAMILY HISTORY: No family history of kidney failure. ALLERGIES: No known allergies. HOME MEDICATIONS: Reviewed as noted in the chart. REVIEW OF SYSTEMS: The patient denies nausea at present time. He received Kayexalate in the Emergency Room with complains of having diarrhea. The patient feels like a crampy mid upper abdomen pain. Denies GI bleeding. Denies cold, cough, or sore throat. Denies difficulty swallowing. Denies fever or chills. Other review of systems reviewed and negative. PHYSICAL EXAMINATION: GENERAL: The patient is alert, oriented, not in acute distress. VITAL SIGNS: Blood pressure 163/71, pulse 65, afebrile. Lips noncyanotic. NECK: No JVD, no thyroid enlargement. LUNGS: Diminished breath sounds in bases. HEART: S1, S2 regular. No pericardial rub. ABDOMEN: Soft, bowel sounds present, nontender, no masses palpable. EXTREMITIES: No significant edema. Left upper arm AV access is functioning. LABORATORY DATA: WBC 10.0, hemoglobin 12.8, hematocrit 39.0, platelets 179. Sodium 138, potassium 6.4, chloride 94, CO2 of 25, BUN 59, creatinine 8.2, glucose 113, calcium 8.0, lipase 105. ASSESSMENT AND PLAN: 1. Hyperkalemia. 2. End-stage renal disease. 3. Epigastric pain. 4. Nausea, vomiting, and diarrhea. 4. Hypertension. Hemodialysis as ordered. Monitor potassium levels closely. Advised the patient on 2 gram potassium diet. Adjust medications per renal function. The patient had GI evaluation in the past. JOB# [id number] TERI/JOSE ANTONIO
--- NOTE | 2018-01-01 09:18 | Progress Note ---
Assessment and Plan - Patient Problems (1) Abdominal pain Current Visit: Yes Status: Acute Qualifiers: Abdominal location: unspecified location Qualified Code(s): R10.9 - Unspecified abdominal pain Plan to address problem: H/O chronic pancreatitis- on creon -G.I follow up (2) Hyperkalemia Current Visit: Yes Status: Acute Plan to address problem: S/P HD yesterday-follow up on labs (3) ESRD (end stage renal disease) on dialysis Current Visit: Yes Status: Chronic Plan to address problem: HD on T/T/S (4) GERD (gastroesophageal reflux disease) Current Visit: Yes Status: Chronic Qualifiers: Esophagitis presence: without esophagitis Qualified Code(s): K21.9 - Gastro -esophageal reflux disease without esophagitis (5) Hypertension Current Visit: Yes Status: Chronic Qualifiers: Hypertension type: essential hypertension Qualified Code(s): I10 - Essential (primary) hypertension Plan to address problem: [id number] BP meds (6) Type 2 diabetes mellitus Current Visit: Yes Status: Chronic Plan to address problem: S/P hypoglycemia today-adjust meds. Avoid Hypoglycemia Subjective Date of service: 01/01/18 Interval history: alert, oriented, denies CP or SOB. C/O intermittent nausea, upper mid abdomen pain. Noted high BP readings today Objective - Vital Signs Vital signs: Vital Signs - 12hr 01/01/18 07:51 Temperature 98.0 F Pulse Rate 72 Respiratory 16 Rate Blood Pressure 235/81 O2 Sat by Pulse 95 Oximetry - General Appearance General appearance: well-developed EENT: mucous membranes moist Neck: no JVD Respiratory: Present: Clear to Ascultation Cardiology: regular Gastrointestinal: normoactive bowel sounds Musculoskeletal: other (no edema, AV access has bruit and thrill) Psychiatric: mood/affect appropriate, cooperative - Lab 12/31/17 10:36 12/31/17 10:36 Most recent lab results Calcium 8.0 mg/dL (8.4-10.2) L 12/31/17 10:36
[2018-01-01] MEDS: CREON DR 12,000 UNITS PO SCH ×3 (09:40→18:53)
[2018-01-01] MEDS: PHOSLO PO SCH ×3 (09:40→18:53)
[2018-01-01] MEDS: PROTONIX PO SCH (09:41)
[2018-01-01] MEDS ORDERED: NON-FORMULARY (Omeprazole [Omeprazole] 40 MG) PO SCH (10:00)
[2018-01-01] MEDS: PROCARDIA XL PO SCH (10:04)
[2018-01-01] MEDS: SODIUM CHLORIDE FLUSH SYRINGE 10 ML IV SCH ×2 (10:05→21:31)
[2018-01-01] MEDS: AMARYL PO SCH ×2 (10:08→18:53)
[2018-01-01] MEDS ORDERED: LABETALOL 200 MG PO SCH (10:27)
[2018-01-01] MEDS ORDERED: NON-FORMULARY (Hydralazine 50 MG) PO SCH (10:30)
[2018-01-01] MEDS ORDERED: CREON DR 12,000 UNITS PO SCH (11:30)
[2018-01-01] MEDS: NORMODYNE PO SCH ×2 (13:14→21:30)
[2018-01-01] MEDS: APRESOLINE PO SCH ×2 (13:20→21:29)
[2018-01-01] MEDS ORDERED: CREON 24000 UNIT PO SCH (14:00)
[2018-01-01] MEDS ORDERED: D50W (25GM) Syringe IV PRN (16:36)
--- NOTE | 2018-01-01 16:46 | Progress Note ---
Assessment and Plan Assessment and plan: 62-year-old male presents with nausea vomiting and headache for 2 days. Patient speaks Ukrainian. No chest pain. No shortness of breath. Patient is on dialysis. Patient has a high potassium for which patient is being admitted and also symptomatic treatment for vomiting. Patient has a history of diabetes and end-stage renal disease and hypertension and chronic pancreatitis. No fever no chills. 1. Acute hyperkalemia 2. Chronic pancreatitis 3. Peritoneal irritation secondary to chronic reactive pancreatitis 4. Gastroenteritis 5. Hypertensive urgency 6. Diabetes mellitus with hyperglycemia 7. GERD Plan * Continue supportive care patient's symptoms appear to be improving still with elevated blood pressure * Reviewed blood pressure medication with the patient that we'll restart blood pressure medications also discussed with assembler cards and announcements * Patient received Kayexalate, calcium gluconate on admission weight recheck potassium level. We'll also plan dialysis in a.m per Nephrologsit * Restart Creon * Continue home meds * DVT/GI prophy * Anticipate discharge in AM * Plan discussed with the patient and Nursing staff in addition to [employer] Information [employer] Supervisor. History Interval history: Patient is seen today for: Nausea with vomiting chronic pancreatitis, End stage renal disease, hypertension Seen and examined at bedside; 24hour events reviewed; nursing staff ; no adverse overnight events reported to me; Denies any chest pain, nausea, vomiting , diarrhea No fever noted , blood pressure remains elevated Hospitalist Physical - Physical exam Narrative exam: VITAL SIGNS: Reviewed. GENERAL: The patient appeared well nourished and normally developed. Vital signs as documented. HEAD: No signs of head trauma. EYES: Pupils are equal. Extraocular motions intact. EARS: Hearing grossly intact. MOUTH: Oropharynx is normal. NECK: No adenopathy, no JVD. CHEST: Chest with clear breath sounds bilaterally. No wheezes, rales, or rhonchi. CARDIAC: Regular rate and rhythm. S1 and S2, without murmurs, gallops, or rubs. VASCULAR: No Edema. Peripheral pulses normal and equal in all extremities. ABDOMEN: Soft, without detectable tenderness. No sign of distention. No rebound or guarding, and no masses palpated. Bowel Sounds normal. MUSCULOSKELETAL: Good range of motion of all major joints. Extremities without clubbing, cyanosis or edema. NEUROLOGIC EXAM: Alert and oriented x 3. No focal sensory or strength deficits. Speech normal. Follows commands. PSYCHIATRIC: Mood normal. SKIN: No rash or lesions. - Constitutional Vitals: Temp Pulse Resp BP Pulse Ox 98.4 F 71 16 177/65 97 01/01/18 15:21 01/01/18 15:21 01/01/18 15:21 01/01/18 15:21 01/01/18 15:21 General appearance: Present: no acute distress, well-nourished Results - Labs CBC & Chem 7: 12/31/17 10:36 12/31/17 10:36 Labs: Laboratory Last Values WBC 10.0 K/mm3 (4.5-11.0) 12/31/17 10:36 RBC 3.95 M/mm3 (3.65-5.03) 12/31/17 10:36 Hgb 12.8 gm/dl (11.8-15.2) 12/31/17 10:36 Hct 39.0 % (35.5-45.6) 12/31/17 10:36 MCV 99 fl (84-94) H 12/31/17 10:36 MCH 33 pg (28-32) H 12/31/17 10:36 MCHC 33 % (32-34) 12/31/17 10:36 RDW 17.1 % (13.2-15.2) H 12/31/17 10:36 Plt Count 179 K/mm3 (140-440) 12/31/17 10:36 Lymph % (Auto) 5.6 % (13.4-35.0) L 12/31/17 10:36 [place] % (Auto) 4.9 % (0.0-7.3) 12/31/17 10:36 Eos % (Auto) 3.4 % (0.0-4.3) 12/31/17 10:36 Baso % (Auto) 0.6 % (0.0-1.8) 12/31/17 10:36 Lymph # 0.6 K/mm3 (1.2-5.4) L 12/31/17 10:36 [place] # 0.5 K/mm3 (0.0-0.8) 12/31/17 10:36 Eos # 0.3 K/mm3 (0.0-0.4) 12/31/17 10:36 Baso # 0.1 K/mm3 (0.0-0.1) 12/31/17 10:36 Seg Neutrophils % 85.5 % (40.0-70.0) H 12/31/17 10:36 Seg Neutrophils # 8.6 K/mm3 (1.8-7.7) H 12/31/17 10:36 Sodium 138 mmol/L (137-145) 12/31/17 10:36 Potassium 6.4 mmol/L (3.6-5.0) H* 12/31/17 10:36 Chloride 94.6 mmol/L (98-107) L 12/31/17 10:36 Carbon Dioxide 25 mmol/L (22-30) 12/31/17 10:36 Anion Gap 25 mmol/L 12/31/17 10:36 BUN 59 mg/dL (9-20) H 12/31/17 10:36 Creatinine 8.2 mg/dL (0.8-1.5) H 12/31/17 10:36 Estimated GFR 7 ml/min 12/31/17 10:36 BUN/Creatinine Ratio 7 % 12/31/17 10:36 Glucose 113 mg/dL (75-100) H 12/31/17 10:36 POC Glucose 152 (70-105) H 01/01/18 11:44 Hemoglobin A1c 4.4 % (4-6) 01/01/18 00:27 Calcium 8.0 mg/dL (8.4-10.2) L 12/31/17 10:36 Total Bilirubin 0.50 mg/dL (0.1-1.2) 12/31/17 10:36 AST 18 units/L (5-40) 12/31/17 10:36 ALT 14 units/L (7-56) 12/31/17 10:36 Alkaline Phosphatase 120 units/L (35-129) 12/31/17 10:36 Total Protein 7.7 g/dL (6.3-8.2) 12/31/17 10:36 Albumin 4.6 g/dL (3.9-5) 12/31/17 10:36 Albumin/Globulin Ratio 1.5 % 12/31/17 10:36 Lipase 105 units/L (13-60) H 12/31/17 10:36
[2018-01-01] MEDS: HumuLIN R SUB-Q SCH (21:31)
--- NOTE | 2018-01-02 07:34 | Discharge Summary ---
Providers - Providers Date of Admission: 12/31/17 13:45 Attending physician: SAKSHI HOOKS MD 01/01/18 00:05 Consult to Physician [CONS] Routine Comment: Consulting Provider: CLAYTON FRANCO Physician Instructions: Reason For Exam: ESRD Primary care physician: LABORATORY COORDINATOR Hospitalization Reason for admission: abdominal pain Condition: Stable Hospital course: 62-year-old male presents with nausea vomiting and headache for 2 days. Patient speaks Tunisian. No chest pain. No shortness of breath. Patient is on dialysis. Patient has a high potassium for which patient is being admitted and also symptomatic treatment for vomiting. Patient has a history of diabetes and end-stage renal disease and hypertension and chronic pancreatitis. No fever no chills. Patient admission was noted to have acute hyperkalemia should he proceeded to have the is done complications. His nausea vomiting resolved. He was restarted on his creatinine. He does have a history of chronic pancreatitis. He did report 1 episode of constipation for which he received his lactulose. He was seen by chemical process project engineer who started to diet at this time abdominal pain has resolved. His stable for discharge Discharge diagnosis 1. Acute hyperkalemia 2. Chronic pancreatitis 3. Peritoneal irritation secondary to chronic reactive pancreatitis 4. Gastroenteritis 5. Hypertensive urgency 6. Diabetes mellitus with hyperglycemia 7. GERD 8. Sirs secondary to noninfectious etiology Disposition: DC-01 TO HOME OR SELFCARE Time spent for discharge: 35 MINS Core Measure Documentation - Palliative Care Palliative Care/ Comfort Measures: Not Applicable - Core Measures Any of the following diagnoses?: none - VTE Discharge Requirements Deep Vein Thrombosis/Pulmonary Embolism Present on Admission: No Exam - Physical Exam Narrative exam: VITAL SIGNS: Reviewed. GENERAL: The patient appeared well nourished and normally developed. Vital signs as documented. HEAD: No signs of head trauma. EYES: Pupils are equal. Extraocular motions intact. EARS: Hearing grossly intact. MOUTH: Oropharynx is normal. NECK: No adenopathy, no JVD. CHEST: Chest with clear breath sounds bilaterally. No wheezes, rales, or rhonchi. CARDIAC: Regular rate and rhythm. S1 and S2, without murmurs, gallops, or rubs. VASCULAR: No Edema. Peripheral pulses normal and equal in all extremities. ABDOMEN: Soft, without detectable tenderness. No sign of distention. No rebound or guarding, and no masses palpated. Bowel Sounds normal. MUSCULOSKELETAL: Good range of motion of all major joints. Extremities without clubbing, cyanosis or edema. NEUROLOGIC EXAM: Alert and oriented x 3. No focal sensory or strength deficits. Speech normal. Follows commands. PSYCHIATRIC: Mood normal. SKIN: No rash or lesions. - Constitutional Vitals: Temp Pulse Resp BP Pulse Ox 97.8 F 67 18 136/46 97 01/02/18 04:03 01/02/18 04:03 01/02/18 04:03 01/02/18 04:03 01/02/18 04:03 Plan Activity: advance as tolerated, fall precautions Diet: diabetic, renal Special Instructions: record daily weights, record daily BP diary, record blood sugar diary Follow up with: PRIMARY CAREMD [Primary Care Provider] - 3-5 Days CLAYTON FRANCO MD [Staff Physician] - 7 Days
[2018-01-02] MEDS: PHOSLO PO SCH ×2 (08:56→13:07)
[2018-01-02] MEDS: AMARYL PO SCH (08:56)
[2018-01-02] MEDS: CREON DR 12,000 UNITS PO SCH ×2 (08:56→13:07)
[2018-01-02] MEDS: NORMODYNE PO SCH (08:57)
[2018-01-02 09:14] LABS: Eosinophils # (Auto) 0.4 K/mm3 (0.0-0.4); Eosinophils % (Auto) 8.9 % (0.0-4.3); Hematocrit 36.4 % (35.5-45.6); Hemoglobin 12.1 gm/dl (11.8-15.2); Lymphocytes # (Auto) 0.5 K/mm3 (1.2-5.4); Lymphocytes % (Auto) 10.2 % (13.4-35.0); Mean Corpuscular HGB Conc 33 % (32-34); Mean Corpuscular Hemoglobin 32 pg (28-32); Mean Corpuscular Volume 98 fl (84-94); Monocytes # (Auto) 0.3 K/mm3 (0.0-0.8); Monocytes % (Auto) 5.9 % (0.0-7.3); Platelet Count 156 K/mm3 (140-440); Red Blood Count 3.73 M/mm3 (3.65-5.03); Red Cell Distribution Width 16.8 % (13.2-15.2)
[2018-01-02 09:34] LABS: Albumin 4.1 g/dL (3.9-5); Calcium 7.4 mg/dL (8.4-10.2)
[2018-01-02] MEDS: HumuLIN R SUB-Q SCH ×2 (09:55→12:46)
[2018-01-02 09:59] VITALS: BP 176/62
[2018-01-02] MEDS: PROCARDIA XL PO SCH (10:00)
[2018-01-02] MEDS: APRESOLINE PO SCH (10:00)
[2018-01-02] MEDS: PROTONIX PO SCH (10:01)
[2018-01-02] MEDS: SODIUM CHLORIDE FLUSH SYRINGE 10 ML IV SCH (10:04)
== END 2018-01-02 14:20 | disposition home or self-care (01) | DRG 640 ==
LOC: ED 09:42 → 3A 13:45
PROVIDERS: ADMIT Internal Medicine; ATTEND Internal Medicine
PROC: 5A1D70Z Performance of Urinary Filtration, Intermittent, Less than 6 Hours Per Day (ICD-10-PCS; principal; 2017-12-31)
DX: E87.5 Hyperkalemia (principal); K65.9 Peritonitis, unspecified; N18.6 End stage renal disease; K86.1 Other chronic pancreatitis; R65.10 Systemic inflammatory response syndrome (SIRS) of non-infectious origin without acute organ dysfunction; I13.2 Hypertensive heart and chronic kidney disease with heart failure and with stage 5 chronic kidney disease, or end stage renal disease; Z82.49 Family history of ischemic heart disease and other diseases of the circulatory system; I16.0 Hypertensive urgency; K21.9 Gastro-esophageal reflux disease without esophagitis; K52.9 Noninfective gastroenteritis and colitis, unspecified; Z99.2 Dependence on renal dialysis; E11.22 Type 2 diabetes mellitus with diabetic chronic kidney disease; K59.00 Constipation, unspecified; E11.65 Type 2 diabetes mellitus with hyperglycemia; I50.9 Heart failure, unspecified; Z86.718 Personal history of other venous thrombosis and embolism; K76.9 Liver disease, unspecified; E20.8 Other hypoparathyroidism
CPT/HCPCS: 36415; 74176; 80053; 82962; 83036; 83690; 85025; 93005; 93010; 96374; 96375; J0610; J1815; J1885; J2405; J7030

== ENCOUNTER 2018-01-08 01:07 | Emergency (ER) | payer MEDICARE ==
[2018-01-08 03:04] LABS: Basophils # (Auto) 0.1 K/mm3 (0.0-0.1); Basophils % (Auto) 0.8 % (0.0-1.8); Eosinophils # (Auto) 0.5 K/mm3 (0.0-0.4); Eosinophils % (Auto) 7.4 % (0.0-4.3); Hematocrit 34.9 % (35.5-45.6); Lymphocytes # (Auto) 0.5 K/mm3 (1.2-5.4); Lymphocytes % (Auto) 8.5 % (13.4-35.0); Mean Corpuscular HGB Conc 35 % (32-34); Mean Corpuscular Hemoglobin 34 pg (28-32); Mean Corpuscular Volume 97 fl (84-94); Monocytes # (Auto) 0.4 K/mm3 (0.0-0.8); Monocytes % (Auto) 6.2 % (0.0-7.3); Platelet Count 171 K/mm3 (140-440); Red Blood Count 3.59 M/mm3 (3.65-5.03); Red Cell Distribution Width 16.7 % (13.2-15.2)
[2018-01-08 03:13] LABS: Albumin 4.4 g/dL (3.9-5); Calcium 8.2 mg/dL (8.4-10.2)
[2018-01-08] MEDS ORDERED: ZOFRAN ODT PO ONE (09:28)
[2018-01-08] MEDS ORDERED: TYLENOL PO ONE (09:28)
[2018-01-08] MEDS ORDERED: CARAFATE PO ONE (09:28)
--- NOTE | 2018-01-08 09:31 | Emergency Department Report ---
ED General Adult HPI - General Chief complaint: Abdominal Pain Stated complaint: ABDOMINAL PAIN,NAUSEA Time Seen by Provider: 01/08/18 09:05 Source: patient, RN notes reviewed, old records reviewed Mode of arrival: Ambulatory Limitations: Other (this provider is conversational in faroese) - History of Present Illness Initial comments: This is a 62-year-old male. Patient has a past medical history of end-stage renal disease on dialysis. He typically gets dialysis Sunday, , Sunday. Patient recently admitted to this hospital at the end of December for end-stage renal disease and hyperkalemia. He had a CAT scan of the abdomen and pelvis at that time which demonstrated no significant or acute findings. The patient presents to the ER with a complaint of abdominal cramping and nausea. His symptoms are aching and intermittent, do not radiate anywhere, and do not have exacerbating or relieving factors. The patient to me denies chest pain, shortness of breath. Patient denies constipation. Patient further indicates he is anuric -: Gradual Location: abdomen Radiation: non-radiation Severity scale (0 -10): 3 Quality: aching Consistency: intermittent Improves with: none Worsens with: none Associated Symptoms: nausea/vomiting. denies: confusion, chest pain, cough, diaphoresis, fever/chills, headaches, loss of appetite, malaise, rash, seizure, shortness of breath, syncope, weakness - Related Data Home Medications Medication Instructions Recorded Confirmed Last Taken Calcium Acetate [Phoslo] 667 mg PO TID 01/08/16 12/31/17 11/06/16 B Complex 11/Folic/C/Biot/Zinc 1 each PO DAILY 11/07/16 12/31/17 11/06/16 [Dialyvite with Zinc Tablet] NIFEdipine XL [Procardia Xl] 60 mg PO QDAY 11/07/16 12/31/17 11/06/16 Glimepiride [Amaryl] 4 mg PO BID 01/03/17 12/31/17 Unknown Lipase/Protease/Amylase [Jamaal Peralta 1 cap PO TID 01/03/17 12/31/17 Unknown 24,000 Units Capsule] Omeprazole 40 mg PO QAM 01/03/17 12/31/17 Unknown Jamaal Peralta 24,000 Units Capsule 1 cap PO 01/01/18 12/31/17 07:00 1 Folic Acid 1 mg PO DAILY 01/01/18 01/01/18 12/31/17 07:00 Labetalol 200 mg PO TID 01/01/18 01/01/18 12/31/17 07:00 200 Loperamide 2 mg PO PRN 01/01/18 12/31/17 07:00 2 mg Vitamin D2 1 PO 1XW 01/01/18 12/29/17 07:00 1 hydrALAZINE 50 mg PO BID 01/01/18 01/01/18 12/31/17 07:00 Previous Rx's Medication Instructions Recorded Last Taken Type Acetaminophen [Tylenol Arthritis] 650 mg PO Q6HR PRN #30 tablet.er 01/08/18 Unknown Rx Ondansetron [Zofran Odt] 4 mg PO Q8HR PRN #20 tab.rapdis 01/08/18 Unknown Rx Allergies Allergy/AdvReac Type Severity Reaction Status Date / Time No Known Allergies Allergy Verified 04/08/14 10:42 ED Review of Systems ROS: Stated complaint: ABDOMINAL PAIN,NAUSEA Other details as noted in HPI Constitutional: denies: fever Eyes: denies: vision change ENT: denies: epistaxis Respiratory: cough Cardiovascular: denies: chest pain Gastrointestinal: abdominal pain Genitourinary: denies: dysuria Musculoskeletal: denies: arthralgia Neurological: denies: weakness ED Past Medical Hx - Past Medical History Previous Medical History?: Yes Hx Hypertension: Yes Hx Congestive Heart Failure: Yes Hx Diabetes: Yes Hx Deep Vein Thrombosis: Yes Hx GERD: Yes Hx Liver Disease: Yes Hx Renal Disease: Yes (Dialysis, tue, thur, sat) Hx Asthma: No Hx COPD: No Hx HIV: No Additional medical history: Anemia and renal disease, iron deficiency, secondary hypoparathyroidism of renal origin - Surgical History Past Surgical History?: Yes Additional Surgical History: left arm AV grafts. eyes - Social History Smoking Status: Never Smoker Substance Use Type: None - Medications Home Medications: Home Medications Medication Instructions Recorded Confirmed Last Taken Type Calcium Acetate [Phoslo] 667 mg PO TID 01/08/16 12/31/17 11/06/16 History B Complex 11/Folic/C/Biot/Zinc 1 each PO DAILY 11/07/16 12/31/17 11/06/16 History [Dialyvite with Zinc Tablet] NIFEdipine XL [Procardia Xl] 60 mg PO QDAY 11/07/16 12/31/17 11/06/16 History Glimepiride [Amaryl] 4 mg PO BID 01/03/17 12/31/17 Unknown History Lipase/Protease/Amylase [Jamaal Peralta 1 cap PO TID 01/03/17 12/31/17 Unknown History 24,000 Units Capsule] Omeprazole 40 mg PO QAM 01/03/17 12/31/17 Unknown History Jamaal Peralta 24,000 Units Capsule 1 cap PO 01/01/18 12/31/17 07:00 History 1 Folic Acid 1 mg PO DAILY 01/01/18 01/01/18 12/31/17 07:00 History Labetalol 200 mg PO TID 01/01/18 01/01/18 12/31/17 07:00 History 200 Loperamide 2 mg PO PRN 01/01/18 12/31/17 07:00 History 2 mg Vitamin D2 1 PO 1XW 01/01/18 12/29/17 07:00 History 1 hydrALAZINE 50 mg PO BID 01/01/18 01/01/18 12/31/17 07:00 History Acetaminophen [Tylenol Arthritis] 650 mg PO Q6HR PRN #30 tablet.er 01/08/18 Unknown Rx Ondansetron [Zofran Odt] 4 mg PO Q8HR PRN #20 tab.rapdis 01/08/18 Unknown Rx ED Physical Exam - General Limitations: Language Barrier General appearance: alert, in no apparent distress - Head Head exam: Present: atraumatic, normocephalic - Eye Eye exam: Present: normal appearance, EOMI - ENT ENT exam: Present: normal exam, normal orophraynx, mucous membranes moist, normal external ear exam - Neck Neck exam: Present: normal inspection, full ROM - Respiratory Respiratory exam: Present: normal lung sounds bilaterally. Absent: respiratory distress - Cardiovascular Cardiovascular Exam: Present: regular rate, normal rhythm, normal heart sounds. Absent: systolic murmur, diastolic murmur, rubs, gallop - GI/Abdominal GI/Abdominal exam: Present: soft, normal bowel sounds. Absent: distended, tenderness, guarding, rebound, rigid, pulsatile mass - Rectal Rectal exam: Present: deferred - Extremities Exam Extremities exam: Present: normal inspection, full ROM, other (upper extremity AV fistula with no redness, pus or streaking). Absent: pedal edema, joint swelling, calf tenderness - Back Exam Back exam: Present: normal inspection, full ROM. Absent: tenderness, CVA tenderness (R), paraspinal tenderness, vertebral tenderness - Neurological Exam Neurological exam: Present: alert, oriented X3, CN II-XII intact, other (my normal). Absent: motor sensory deficit - Psychiatric Psychiatric exam: Present: normal affect, normal mood - Skin Skin exam: Present: warm, dry, intact, normal color. Absent: rash ED Course Vital Signs 01/08/18 01/08/18 01/08/18 02:18 07:15 09:39 Temperature 97.5 F L 97.4 F L 97.7 F Pulse Rate 80 74 76 Respiratory 18 18 18 Rate Blood Pressure 197/78 170/61 Blood Pressure 126/47 [Left] O2 Sat by Pulse 97 98 95 Oximetry ED Medical Decision Making - Lab Data Result diagrams: 01/08/18 02:41 01/08/18 02:41 Vital Signs 01/08/18 01/08/18 02:18 07:15 Temperature 97.5 F L 97.4 F L Pulse Rate 80 74 Respiratory 18 18 Rate Blood Pressure 197/78 170/61 O2 Sat by Pulse 97 98 Oximetry Vital Signs 01/08/18 01/08/18 02:18 07:15 Temperature 97.5 F L 97.4 F L Pulse Rate 80 74 Respiratory 18 18 Rate Blood Pressure 197/78 170/61 O2 Sat by Pulse 97 98 Oximetry Lab Results 01/08/18 01/08/18 Range/Units 02:41 02:41 WBC 6.3 (4.5-11.0) K/mm3 RBC 3.59 L (3.65-5.03) M/mm3 Hgb 12.0 (11.8-15.2) gm/dl Hct 34.9 L (35.5-45.6) % MCV 97 H (84-94) fl MCH 34 H (28-32) pg MCHC 35 H (32-34) % RDW 16.7 H (13.2-15.2) % Plt Count 171 (140-440) K/mm3 Lymph % (Auto) 8.5 L (13.4-35.0) % Dent % (Auto) 6.2 (0.0-7.3) % Eos % (Auto) 7.4 H (0.0-4.3) % Baso % (Auto) 0.8 (0.0-1.8) % Lymph # 0.5 L (1.2-5.4) K/mm3 Dent # 0.4 (0.0-0.8) K/mm3 Eos # 0.5 H (0.0-0.4) K/mm3 Baso # 0.1 (0.0-0.1) K/mm3 Seg Neutrophils % 77.1 H (40.0-70.0) % Seg Neutrophils # 4.9 (1.8-7.7) K/mm3 Sodium 139 (137-145) mmol/L Potassium 5.1 H (3.6-5.0) mmol/L Chloride 94.4 L (98-107) mmol/L Carbon Dioxide 22 (22-30) mmol/L Anion Gap 28 mmol/L BUN 85 H (9-20) mg/dL Creatinine 10.8 H (0.8-1.5) mg/dL Estimated GFR 5 ml/min BUN/Creatinine Ratio 8 % Glucose 100 (75-100) mg/dL Calcium 8.2 L (8.4-10.2) mg/dL Total Bilirubin 0.50 (0.1-1.2) mg/dL AST 15 (5-40) units/L ALT 10 (7-56) units/L Alkaline Phosphatase 108 (35-129) units/L NT-Pro-B Natriuret Pep 41278 H (0-900) pg/mL Total Protein 7.5 (6.3-8.2) g/dL Albumin 4.4 (3.9-5) g/dL Albumin/Globulin Ratio 1.4 % Lipase 75 H (13-60) units/L - EKG Data -: EKG Interpreted by Me - Radiology Data Radiology results: report reviewed, image reviewed nt Report Referring Physician: PAULETTE YOUNG Patient Name: JOSS WEBER Date of : 1955 Sex: Male Report Date: 2017-12-31 Report Status: Finalized Findings [facility] [address] [place] [address] Cat Scan Report Signed Patient: JOSS WEBER MR#: [id number] : 1955 Acct:[id number] Age/Sex: 62 / M ADM Date: 12/31/17 Loc: ED Attending Dr: Ordering Physician: PAULETTE YOUNG MD Date of Service: 12/31/17 Procedure(s): CT abdomen pelvis wo con Accession Number(s): [id number] cc: PAULETTE YOUNG MD CT ABDOMEN PELVIS WITHOUT CONTRAST: HISTORY: Diarrhea, lower abdominal pain. COMPARISON: CT abdomen pelvis 11/02/13. TECHNIQUE: Helical CT in 1.25mm intervals without IV contrast. Sagittal and coronal reconstructions. FINDINGS: Lung bases: Mild cardiomegaly and small pericardial effusion. Small complex left pleural effusion with evidence of loculation. Subpleural scarring in the right lower lobe posteriorly. Liver: Normal size and attenuation. 1.9 cm right hepatic lobe hypodensity is identified in incompletely evaluated on noncontrast CT. This probably represents a cavernous hemangioma. This appears unchanged since the MR abdomen dated 02/04/14. Biliary system: Normal. Pancreas: Normal. Spleen: Normal. Kidneys/ureters/bladder: Both kidneys are atrophic with scattered tiny cysts. There are approximately 6 calyceal stones in the right kidney measuring up to 3 mm. There extensive bilateral renal vascular calcifications. No evidence for hydronephrosis. The ureters and bladder are unremarkable. The prostate gland is normal size. Adrenal glands: Normal. Aorta: Diffuse calcifications. The left common iliac stent is in place. No aneurysm. Intestines: Unremarkable given no oral contrast was administered. Appendix: Normal. Ascites: None. Adenopathy: None. Musculoskeletal: No suspicious bony lesion or fracture. Mild thoracolumbar spondylosis. IMPRESSION: No acute abdominal process is identified. Chronic renal parenchymal disease. Right nephrolithiasis, nonobstructing. Scattered tiny renal cysts. 1.9 cm right hepatic lobe hypodensity most consistent with a hemangioma. Diffuse aortic calcifications. Mild cardiomegaly, small pericardial effusion, and small complex left pleural effusion. Transcribed By: TTR Dictated By: HARJINDER RUIZ JR, MD Electronically Authenticated By: HARJINDER RUIZ JR, MD Signed Date/Time: 12/31/17 1147 DD/ 1140 TD/TT: 12/31/17 1147 - Medical Decision Making Differential diagnosis, including but not limited to: Constipation, chronic abdominal pain, chronic pancreatitis Assessment and plan: 62-year-old male with acute on chronic abdominal pain. He is afebrile with reassuring vital signs with the exception of elevated blood pressure. From a volume standpoint, patient appears to be euvolemic. He recently had a CAT scan of the abdomen and pelvis which was unremarkable for acute findings, and his abdomen is soft and benign, with no rebound, guarding or peritoneal signs. His hypertension improved, he was able to tolerate oral feeds without difficulty. I discussed his case with covering nephrology, Dr. Cherie Motley, who indicates the patient should follow up with his dialysis as soon as possible today for routine outpatient dialysis. Critical care attestation.: If time is entered above; I have spent that time in minutes in the direct care of this critically ill patient, excluding procedure time. ED Disposition Clinical Impression: End-stage renal disease, Abdominal pain Disposition: TO HOME OR SELFCARE Is pt being admited?: No Does the pt Need Aspirin: No Condition: Stable Instructions: Chronic Kidney Disease (ED) Additional Instructions: Continue current outpatient medications. Take the pain medication, nausea medication as needed/directed. Follow up as soon as possible today for your routine outpatient dialysis. This physician has specifically discussed her case with Dr. Riley, who has in turn contacted your private dialysis facility, and they will accommodate you with an appointment today as long as you show up as soon as possible. Return to the ER right away with new pain, worsened pain, migration of pain, fevers, chills, intractable nausea or vomiting , confusion, inability to tolerate liquid feeds. Continuar con los medicamentos actuales para pacientes ambulatorios. [place] el medicamento para el dolor, medicamentos para nuseas segn sea necesario / dirigido. Tracey el seguimiento lo ms pronto posible hoy para burt dilisis de rutina para pacientes ambulatorios. Vicky mdico dao discutido especficamente burt demond con el Dr. Riley, quien a burt vez se dao puesto en contacto con burt centro de dilisis privado, y lo atendern con bernice bev hoy siempre que se presente lo antes posible. Regrese a la landy de urgencias inmediatamente con dolor nuevo, dolor empeorado, migracin de dolor, fiebre, escalofros, nuseas o vmitos intratables, confusin, incapacidad para tolerar los lquidos. Referrals: KATERINA FULTON MD [Primary Care Provider] - 3-5 Days CLAYTON FRANCO MD [Staff Physician] - 3-5 Days
[2018-01-08 11:35] VITALS: BP 131/47
== END 2018-01-08 11:34 | disposition home or self-care (01) ==
LOC: ED 01:07
DX: E11.22 Type 2 diabetes mellitus with diabetic chronic kidney disease (principal); I13.2 Hypertensive heart and chronic kidney disease with heart failure and with stage 5 chronic kidney disease, or end stage renal disease; I50.9 Heart failure, unspecified; N18.6 End stage renal disease; K21.9 Gastro-esophageal reflux disease without esophagitis; Z86.718 Personal history of other venous thrombosis and embolism; Z99.2 Dependence on renal dialysis
CPT/HCPCS: 36415; 80053; 83690; 83880; 85025; 93005; 93010; 99283; Q0162

== ENCOUNTER 2018-02-20 09:58 | Emergency (ER) | payer MEDICARE ==
[2018-02-20 10:09] VITALS: BP 155/63
--- NOTE | 2018-02-20 11:48 | Emergency Department Report ---
ED Male HPI - General Chief complaint: Urogenital-Male Stated complaint: BLOOD IN URINE Time Seen by Provider: 02/20/18 10:45 Source: patient, family Mode of arrival: Ambulatory Limitations: Language Barrier - History of Present Illness Initial comments: Patient is a 62-year-old male past medical history of end-stage renal disease who is on dialysis who also has a history of diabetes high and heart failure who is complaining of hematuria. Patient does not make urine anymore's secondary to his end-stage renal disease but for the past week he's had small amounts of blood in the urine. Patient states this is painless there is no abdominal pain there's no testicular pain. Patient is not on blood thinners at this time. Patient is not having any pain with bowel movements. Patient states very small amounts of blood or able to come out at a time. - Related Data Home Medications Medication Instructions Recorded Confirmed Last Taken Calcium Acetate [Phoslo] 667 mg PO TID 01/08/16 12/31/17 11/06/16 B Complex 11/Folic/C/Biot/Zinc 1 each PO DAILY 11/07/16 12/31/17 11/06/16 [Dialyvite with Zinc Tablet] NIFEdipine XL [Procardia Xl] 60 mg PO QDAY 11/07/16 12/31/17 11/06/16 Glimepiride [Amaryl] 4 mg PO BID 01/03/17 12/31/17 Unknown Lipase/Protease/Amylase [Jamaal Peralta 1 cap PO TID 01/03/17 12/31/17 Unknown 24,000 Units Capsule] Omeprazole 40 mg PO QAM 01/03/17 12/31/17 Unknown Jamaal Peralta 24,000 Units Capsule 1 cap PO 01/01/18 12/31/17 07:00 1 Folic Acid 1 mg PO DAILY 01/01/18 01/01/18 12/31/17 07:00 Labetalol 200 mg PO TID 01/01/18 01/01/18 12/31/17 07:00 200 Loperamide 2 mg PO PRN 01/01/18 12/31/17 07:00 2 mg Vitamin D2 1 PO 1XW 01/01/18 12/29/17 07:00 1 hydrALAZINE 50 mg PO BID 01/01/18 01/01/18 12/31/17 07:00 Previous Rx's Medication Instructions Recorded Last Taken Type Acetaminophen [Tylenol Arthritis] 650 mg PO Q6HR PRN #30 tablet.er 01/08/18 Unknown Rx Ondansetron [Zofran Odt] 4 mg PO Q8HR PRN #20 tab.rapdis 01/08/18 Unknown Rx Ciprofloxacin HCl [Cipro] 500 mg PO BID #14 tablet 02/20/18 Unknown Rx Allergies Allergy/AdvReac Type Severity Reaction Status Date / Time No Known Allergies Allergy Verified 02/20/18 10:09 ED Review of Systems ROS: Stated complaint: BLOOD IN URINE Other details as noted in HPI Comment: All other systems reviewed and negative ED Past Medical Hx - Past Medical History Previous Medical History?: Yes Hx Hypertension: Yes Hx Congestive Heart Failure: Yes Hx Diabetes: Yes Hx Deep Vein Thrombosis: Yes Hx GERD: Yes Hx Liver Disease: Yes Hx Renal Disease: Yes (Dialysis, tue, thur, sat) Hx Asthma: No Hx COPD: No Hx HIV: No Additional medical history: Anemia and renal disease, iron deficiency, secondary hypoparathyroidism of renal origin - Surgical History Past Surgical History?: Yes Additional Surgical History: left arm AV grafts. eyes - Social History Smoking Status: Never Smoker Substance Use Type: None - Medications Home Medications: Home Medications Medication Instructions Recorded Confirmed Last Taken Type Calcium Acetate [Phoslo] 667 mg PO TID 01/08/16 12/31/17 11/06/16 History B Complex 11/Folic/C/Biot/Zinc 1 each PO DAILY 11/07/16 12/31/17 11/06/16 History [Dialyvite with Zinc Tablet] NIFEdipine XL [Procardia Xl] 60 mg PO QDAY 11/07/16 12/31/17 11/06/16 History Glimepiride [Amaryl] 4 mg PO BID 01/03/17 12/31/17 Unknown History Lipase/Protease/Amylase [Jamaal Peralta 1 cap PO TID 01/03/17 12/31/17 Unknown History 24,000 Units Capsule] Omeprazole 40 mg PO QAM 01/03/17 12/31/17 Unknown History Jamaal Peralta 24,000 Units Capsule 1 cap PO 01/01/18 12/31/17 07:00 History 1 Folic Acid 1 mg PO DAILY 01/01/18 01/01/18 12/31/17 07:00 History Labetalol 200 mg PO TID 01/01/18 01/01/18 12/31/17 07:00 History 200 Loperamide 2 mg PO PRN 01/01/18 12/31/17 07:00 History 2 mg Vitamin D2 1 PO 1XW 01/01/18 12/29/17 07:00 History 1 hydrALAZINE 50 mg PO BID 01/01/18 01/01/18 12/31/17 07:00 History Acetaminophen [Tylenol Arthritis] 650 mg PO Q6HR PRN #30 tablet.er 01/08/18 Unknown Rx Ondansetron [Zofran Odt] 4 mg PO Q8HR PRN #20 tab.rapdis 01/08/18 Unknown Rx Ciprofloxacin HCl [Cipro] 500 mg PO BID #14 tablet 02/20/18 Unknown Rx ED Physical Exam - General Limitations: Language Barrier General appearance: alert, in no apparent distress - Head Head exam: Present: atraumatic, normocephalic - Eye Eye exam: Present: normal appearance - ENT ENT exam: Present: mucous membranes moist - Neck Neck exam: Present: normal inspection - Respiratory Respiratory exam: Present: normal lung sounds bilaterally. Absent: respiratory distress, wheezes, rales, rhonchi - Cardiovascular Cardiovascular Exam: Present: regular rate, normal rhythm. Absent: systolic murmur, diastolic murmur, rubs, gallop - GI/Abdominal GI/Abdominal exam: Present: soft, normal bowel sounds. Absent: distended, tenderness - Rectal Rectal exam: Present: deferred - Extremities Exam Extremities exam: Present: normal inspection - Back Exam Back exam: Present: normal inspection - Neurological Exam Neurological exam: Present: alert, oriented X3 - Psychiatric Psychiatric exam: Present: normal affect, normal mood - Skin Skin exam: Present: warm, dry, intact, normal color. Absent: rash ED Course Vital Signs 02/20/18 10:01 Temperature 97.9 F Pulse Rate 64 Respiratory 16 Rate Blood Pressure 155/63 O2 Sat by Pulse 97 Oximetry ED Medical Decision Making - Medical Decision Making Patient was able to get a small amount of blood to come out the penis but it was too small amount for analysis. On the differential would be a urinary tract infection cystitis or prostatitis. Patient will be started on antibiotics empirically and have a follow-up with urology. Patient may need a cystoscope and also to rule out a malignancy Critical care attestation.: If time is entered above; I have spent that time in minutes in the direct care of this critically ill patient, excluding procedure time. ED Disposition Clinical Impression: Hematuria Qualifiers: Hematuria type: gross Qualified Code(s): R31.0 - Gross hematuria Disposition: DC-01 TO HOME OR SELFCARE Is pt being admited?: No Does the pt Need Aspirin: No Condition: Stable Prescriptions: Ciprofloxacin HCl [Cipro] 500 mg PO BID #14 tablet Referrals: DAYRON FERRELL MD [Staff Physician] - 3-5 Days
== END 2018-02-20 11:55 | disposition home or self-care (01) ==
LOC: ED 09:58
DX: R31.0 Gross hematuria (principal); I10 Essential (primary) hypertension; I50.9 Heart failure, unspecified; E11.9 Type 2 diabetes mellitus without complications; K21.9 Gastro-esophageal reflux disease without esophagitis; D64.9 Anemia, unspecified; Z99.2 Dependence on renal dialysis
CPT/HCPCS: 99282

== ENCOUNTER 2018-02-26 11:47 | Emergency (ER) | payer MEDICARE ==
[2018-02-26 12:01] VITALS: BP 170/64
[2018-02-26 13:19] LABS: Basophils % (Auto) 0.7 % (0.0-1.8); Eosinophils # (Auto) 0.3 K/mm3 (0.0-0.4); Eosinophils % (Auto) 6.5 % (0.0-4.3); Hematocrit 33.3 % (35.5-45.6); Hemoglobin 11.3 gm/dl (11.8-15.2); Lymphocytes # (Auto) 0.4 K/mm3 (1.2-5.4); Lymphocytes % (Auto) 9.5 % (13.4-35.0); Mean Corpuscular HGB Conc 34 % (32-34); Mean Corpuscular Hemoglobin 32 pg (28-32); Mean Corpuscular Volume 94 fl (84-94); Monocytes # (Auto) 0.2 K/mm3 (0.0-0.8); Monocytes % (Auto) 5.3 % (0.0-7.3); Platelet Count 112 K/mm3 (140-440); Red Blood Count 3.55 M/mm3 (3.65-5.03); Red Cell Distribution Width 15.5 % (13.2-15.2)
[2018-02-26 13:56] LABS: Calcium 8.7 mg/dL (8.4-10.2)
== END 2018-02-26 13:42 | disposition left against medical advice (07) ==
LOC: ED 11:47
DX: R42 Dizziness and giddiness (principal); R06.02 Shortness of breath; Z99.2 Dependence on renal dialysis; Z53.21 Procedure and treatment not carried out due to patient leaving prior to being seen by health care provider
CPT/HCPCS: 36415; 80048; 84484; 85025; 93005; 93010

== ENCOUNTER 2018-09-18 18:11 | Inpatient (IN) | payer MEDICARE ==
[2018-09-18] MEDS ORDERED: ASPIRIN PO ONE (18:29)
[2018-09-18 18:49] LABS: Basophils % (Auto) 0.8 % (0.0-1.8); Eosinophils # (Auto) 0.4 K/mm3 (0.0-0.4); Eosinophils % (Auto) 5.5 % (0.0-4.3); Hematocrit 31.1 % (35.5-45.6); Hemoglobin 10.7 gm/dl (11.8-15.2); Lymphocytes # (Auto) 0.7 K/mm3 (1.2-5.4); Lymphocytes % (Auto) 10.3 % (13.4-35.0); Mean Corpuscular HGB Conc 34 % (32-34); Mean Corpuscular Volume 94 fl (84-94); Monocytes # (Auto) 0.5 K/mm3 (0.0-0.8); Monocytes % (Auto) 8.1 % (0.0-7.3); Platelet Count 150 K/mm3 (140-440); Red Blood Count 3.31 M/mm3 (3.65-5.03); Red Cell Distribution Width 16.9 % (13.2-15.2)
[2018-09-18 19:09] LABS: Alanine Aminotransferase 8 units/L (7-56); Albumin 4.6 g/dL (3.9-5)
[2018-09-18 19:19] LABS: Bilirubin,Direct < 0.2 mg/dL (0-0.2)
[2018-09-18 19:31] LABS: INR 1.08 (0.87-1.13)
[2018-09-18 19:32] LABS: Partial Thromboplastin Time 31.2 Sec. (24.2-36.6)
[2018-09-18 19:44] LABS: Calcium 8.5 mg/dL (8.4-10.2); Chol/HDL Ratio 3.37 %
[2018-09-18] MEDS ORDERED: KIONEX PO ONE ×2 (20:17→22:28)
--- NOTE | 2018-09-18 20:18 | Emergency Department Report ---
- General Chief complaint: Chest Pain Stated complaint: CHEST PAIN Time Seen by Provider: 09/18/18 18:47 Source: patient, family, old records reviewed Mode of arrival: Ambulatory Limitations: Language Barrier - History of Present Illness Initial comments: 62-year-old male with a past medical history of end-stage renal disease (dialysis Sunday, , and Sunday), left leg DVT, diabetes, GERD, and hypertension presents to the hospital complains of generalized weakness and shortness of breath today. Patient denies pain in his chest but states that he feels like his heart is going to stop. Mild nausea and mild shortness of breath reported. Patient has been compliant with his dialysis and is due again tomorrow. Patient did travel back and forth to [place] in August. Patient does not make urine. Last cardiac workup on record was from dialysis and and patient had a stress test. Medical Technologist Blood Bank: Dr. Lezama - Related Data Home Medications Medication Instructions Recorded Confirmed Last Taken Calcium Acetate [Phoslo] 667 mg PO TID 01/08/16 12/31/17 11/06/16 B Complex 11/Folic/C/Biot/Zinc 1 each PO DAILY 11/07/16 12/31/17 11/06/16 [Dialyvite with Zinc Tablet] NIFEdipine XL [Procardia Xl] 60 mg PO QDAY 11/07/16 12/31/17 11/06/16 Glimepiride [Amaryl] 4 mg PO BID 01/03/17 12/31/17 Unknown Lipase/Protease/Amylase [Jamaal Peralta 1 cap PO TID 01/03/17 12/31/17 Unknown 24,000 Units Capsule] Omeprazole 40 mg PO QAM 01/03/17 12/31/17 Unknown Jamaal Peralta 24,000 Units Capsule 1 cap PO 01/01/18 12/31/17 07:00 1 Folic Acid 1 mg PO DAILY 01/01/18 01/01/18 12/31/17 07:00 Labetalol 200 mg PO TID 01/01/18 01/01/18 12/31/17 07:00 200 Loperamide 2 mg PO PRN 01/01/18 12/31/17 07:00 2 mg Vitamin D2 1 PO 1XW 01/01/18 12/29/17 07:00 1 hydrALAZINE 50 mg PO BID 01/01/18 01/01/18 12/31/17 07:00 Allergies Allergy/AdvReac Type Severity Reaction Status Date / Time No Known Allergies Allergy Verified 02/20/18 10:09 ED Review of Systems ROS: Stated complaint: CHEST PAIN Other details as noted in HPI ED Past Medical Hx - Past Medical History Hx Hypertension: Yes Hx Congestive Heart Failure: Yes Hx Diabetes: Yes Hx Deep Vein Thrombosis: Yes Hx GERD: Yes Hx Liver Disease: Yes Hx Renal Disease: Yes (Dialysis, tue, thur, sat) Hx Asthma: No Hx COPD: No Hx HIV: No Additional medical history: Anemia and renal disease, iron deficiency, secondary hypoparathyroidism of renal origin - Surgical History Past Surgical History?: Yes Additional Surgical History: left arm AV grafts. eyes - Social History Smoking Status: Never Smoker Substance Use Type: None - Medications Home Medications: Home Medications Medication Instructions Recorded Confirmed Last Taken Type Calcium Acetate [Phoslo] 667 mg PO TID 01/08/16 12/31/17 11/06/16 History B Complex 11/Folic/C/Biot/Zinc 1 each PO DAILY 11/07/16 12/31/17 11/06/16 History [Dialyvite with Zinc Tablet] NIFEdipine XL [Procardia Xl] 60 mg PO QDAY 11/07/16 12/31/17 11/06/16 History Glimepiride [Amaryl] 4 mg PO BID 01/03/17 12/31/17 Unknown History Lipase/Protease/Amylase [Jamaal Peralta 1 cap PO TID 01/03/17 12/31/17 Unknown History 24,000 Units Capsule] Omeprazole 40 mg PO QAM 01/03/17 12/31/17 Unknown History Jamaal Peralta 24,000 Units Capsule 1 cap PO 01/01/18 12/31/17 07:00 History 1 Folic Acid 1 mg PO DAILY 01/01/18 01/01/18 12/31/17 07:00 History Labetalol 200 mg PO TID 01/01/18 01/01/18 12/31/17 07:00 History 200 Loperamide 2 mg PO PRN 01/01/18 12/31/17 07:00 History 2 mg Vitamin D2 1 PO 1XW 01/01/18 12/29/17 07:00 History 1 hydrALAZINE 50 mg PO BID 0501/01/18 12/31/17 07:00 History ED Physical Exam - General Limitations: Language Barrier ED Course Vital Signs 09/18/18 09/18/18 18:24 19:36 Temperature 97.9 F Pulse Rate 66 Respiratory 20 18 Rate Blood Pressure 105/41 O2 Sat by Pulse 97 98 Oximetry - Consultations Consultation #1: 09/18/18 20:17 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 Lezama who recommends Kayexalate 15 g pill will arrange for dialysis in the a.m. ED Medical Decision Making - Lab Data Result diagrams: 09/18/18 18:40 09/18/18 18:40 Lab Results 09/18/18 09/18/18 09/18/18 Range/Units 18:40 18:40 18:45 WBC 6.4 (4.5-11.0) K/mm3 RBC 3.31 L (3.65-5.03) M/mm3 Hgb 10.7 L (11.8-15.2) gm/dl Hct 31.1 L (35.5-45.6) % MCV 94 (84-94) fl MCH 32 (28-32) pg MCHC 34 (32-34) % RDW 16.9 H (13.2-15.2) % Plt Count 150 (140-440) K/mm3 Lymph % (Auto) 10.3 L (13.4-35.0) % [place] % (Auto) 8.1 H (0.0-7.3) % Eos % (Auto) 5.5 H (0.0-4.3) % Baso % (Auto) 0.8 (0.0-1.8) % Lymph # 0.7 L (1.2-5.4) K/mm3 [place] # 0.5 (0.0-0.8) K/mm3 Eos # 0.4 (0.0-0.4) K/mm3 Baso # 0.0 (0.0-0.1) K/mm3 Seg Neutrophils % 75.3 H (40.0-70.0) % Seg Neutrophils # 4.8 (1.8-7.7) K/mm3 PT (12.2-14.9) Sec. INR (0.87-1.13) APTT (24.2-36.6) Sec. D-Dimer (0-234) ng/mlDDU Sodium 137 (137-145) mmol/L Potassium 5.4 H (3.6-5.0) mmol/L Chloride 92.7 L (98-107) mmol/L Carbon Dioxide 20 L (22-30) mmol/L Anion Gap 30 mmol/L BUN 50 H (9-20) mg/dL Creatinine 9.4 H (0.8-1.5) mg/dL Estimated GFR 6 ml/min BUN/Creatinine Ratio 5 % Glucose 145 H (75-100) mg/dL Calcium 8.5 (8.4-10.2) mg/dL Total Bilirubin 0.40 (0.1-1.2) mg/dL Direct Bilirubin < 0.2 (0-0.2) mg/dL Indirect Bilirubin 0.2 mg/dL AST 21 (5-40) units/L ALT 8 (7-56) units/L Alkaline Phosphatase 88 (35-129) units/L Troponin T 0.044 H (0.00-0.029) ng/mL Total Protein 7.2 (6.3-8.2) g/dL Albumin 4.6 (3.9-5) g/dL Albumin/Globulin Ratio 1.8 % Triglycerides 157 H (2-149) mg/dL Cholesterol 125 (50-199) mg/dL LDL Cholesterol Direct 73 (50-130) mg/dL HDL Cholesterol 37 L (40-59) mg/dL Cholesterol/HDL Ratio 3.37 % 09/18/18 09/18/18 Range/Units 18:57 18:57 WBC (4.5-11.0) K/mm3 RBC (3.65-5.03) M/mm3 Hgb (11.8-15.2) gm/dl Hct (35.5-45.6) % MCV (84-94) fl MCH (28-32) pg MCHC (32-34) % RDW (13.2-15.2) % Plt Count (140-440) K/mm3 Lymph % (Auto) (13.4-35.0) % [place] % (Auto) (0.0-7.3) % Eos % (Auto) (0.0-4.3) % Baso % (Auto) (0.0-1.8) % Lymph # (1.2-5.4) K/mm3 [place] # (0.0-0.8) K/mm3 Eos # (0.0-0.4) K/mm3 Baso # (0.0-0.1) K/mm3 Seg Neutrophils % (40.0-70.0) % Seg Neutrophils # (1.8-7.7) K/mm3 PT 14.4 (12.2-14.9) Sec. INR 1.08 (0.87-1.13) APTT 31.2 (24.2-36.6) Sec. D-Dimer 251.9 H (0-234) ng/mlDDU Sodium (137-145) mmol/L Potassium (3.6-5.0) mmol/L Chloride (98-107) mmol/L Carbon Dioxide (22-30) mmol/L Anion Gap mmol/L BUN (9-20) mg/dL Creatinine (0.8-1.5) mg/dL Estimated GFR ml/min BUN/Creatinine Ratio % Glucose (75-100) mg/dL Calcium (8.4-10.2) mg/dL Total Bilirubin (0.1-1.2) mg/dL Direct Bilirubin (0-0.2) mg/dL Indirect Bilirubin mg/dL AST (5-40) units/L ALT (7-56) units/L Alkaline Phosphatase (35-129) units/L Troponin T (0.00-0.029) ng/mL Total Protein (6.3-8.2) g/dL Albumin (3.9-5) g/dL Albumin/Globulin Ratio % Triglycerides (2-149) mg/dL Cholesterol (50-199) mg/dL LDL Cholesterol Direct (50-130) mg/dL HDL Cholesterol (40-59) mg/dL Cholesterol/HDL Ratio % - EKG Data -: EKG Interpreted by [facility] EKG shows normal: sinus rhythm (68), axis (qrs 43), QRS complexes (qrsd 75), ST- T waves (no stemi,) - EKG Data When compared to previous EKG there are: no significant change - Medical Decision Making Patient has nonspecific symptoms of generalized weakness as well as shortness of breath. D-dimer is only 251 and patient does not have any calf tenderness or leg edema. Patient stable for dialysis in the a.m. and will be admitted to hospital service for further management - Differential Diagnosis CHF, MA, PE, unstable angina, arrhythmia, electrolyte abnormality, infectio Critical Care Time: No Critical care attestation.: If time is entered above; I have spent that time in minutes in the direct care of this critically ill patient, excluding procedure time. ED Disposition Clinical Impression: Generalized weakness, Recurrent left pleural effusion, Shortness of breath, End stage renal disease on dialysis, Hyperkalemia Disposition: OP ADMIT IP TO THIS HOSP Is pt being admited?: Yes Condition: Stable Time of Disposition: 20:20 (Dr Ledesma/hosp)
[2018-09-18] MEDS ORDERED: NITROSTAT SL PRN (22:21)
[2018-09-18] MEDS ORDERED: HEPARIN 10,000 UNITS/10 ML IV ONE (22:22)
[2018-09-18] MEDS ORDERED: D50W (25GM) Syringe IV PRN (22:33)
[2018-09-18 22:46] LABS: Hematocrit 29.8 % (35.5-45.6); Hemoglobin 10.2 gm/dl (11.8-15.2)
[2018-09-18 22:56] LABS: INR 1.08 (0.87-1.13)
[2018-09-18 22:57] LABS: Partial Thromboplastin Time 28.4 Sec. (24.2-36.6)
[2018-09-18] MEDS ORDERED: HEPARIN/ 0.45% NACL-25,000 UNIT/500 ML 25,000 UNIT/500 ML BAG IV SCH (23:00)
[2018-09-18 23:06] LABS: Creatine Kinase MB 1.9 ng/mL (0.0-4.0)
[2018-09-19] MEDS: HumuLIN R SUB-Q SCH ×6 (00:08→22:32)
[2018-09-19] MEDS ORDERED: HEPARIN 10,000 UNITS/10 ML IV ONE (01:00)
[2018-09-19 01:32] LABS: Creatine Kinase MB 1.7 ng/mL (0.0-4.0)
[2018-09-19] MEDS: NITRO-BID 2% TP SCH ×5 (01:32→18:59)
[2018-09-19] MEDS ORDERED: TYLENOL PO PRN (06:43)
--- NOTE | 2018-09-19 07:32 | History and Physical Report ---
CHIEF COMPLAINT: Chest pain. OTHER COMPLAINT: Includes shortness of breath. HISTORY OF PRESENTING ILLNESS: The patient is a 62-year-old male presented to the Emergency Room complaining of generalized weakness and funny feeling in the heart which the patient describe as a feeling as if his heart is going to stop. There is a history of associated shortness of breath and there is also history of nausea, but no vomiting. The patient denies history of diaphoresis or dizziness and said he travels back and forth from [place] where he comes from. The patient also admitted to being compliant with his dialysis treatment. PAST MEDICAL HISTORY: Pertinent for congestive heart failure, diabetes mellitus, deep vein thrombosis, gastroesophageal reflux disease, liver disease. End-stage renal disease, on dialysis on Tuesdays, , and Saturdays. Anemia and hypoparathyroidism. PAST SURGICAL HISTORY: Pertinent for placement of dialysis shunt in the left arm and eye surgery. FAMILY HISTORY: Family history is noncontributory. SOCIAL HISTORY: The patient does not smoke, does not drink alcohol, and does not use illicit drugs. MEDICATIONS: The patient is on calcium acetate 667 mg by mouth 3 times daily, Dialyvite with Zinc tablet 1 by mouth daily, Procardia extended release 60 mg daily, glimepiride or Amaryl 4 mg by mouth twice daily, lipase/protease/amylase medication or Creon one capsule by mouth 3 times daily, omeprazole 40 mg every morning, folic acid 1 mg by mouth daily, labetalol 200 mg by mouth 3 times daily, loperamide 2 mg by mouth as needed, vitamin D2 one by mouth every week, hydralazine 50 mg by mouth twice daily. ALLERGIES: There are no known drug allergies. REVIEW OF SYSTEMS: CONSTITUTIONAL: There is no fever, no chills, no diaphoresis. HEENT: There is no headache or sore throat. CARDIOVASCULAR SYSTEM: There is chest discomfort but no orthopnea. RESPIRATORY SYSTEM: There is shortness of breath and no cough. GASTROINTESTINAL SYSTEM: There is nausea, but no vomiting, no abdominal pain, diarrhea or constipation. NEUROLOGICAL SYSTEM: There is no numbness, no dizziness, no altered mental status. MUSCULOSKELETAL SYSTEM: There is no joint pain or swelling. DERMATOLOGICAL SYSTEM: There is no skin rash or itching. GENITOURINARY SYSTEM: There is no dysuria, hematuria, or flank pain. Rest of system review is normal. PHYSICAL EXAMINATION: GENERAL: At the time of exam, the patient was found to be alert, oriented x 3 and not in acute distress. VITAL SIGNS: At the initial time of presentation show a temperature of 97 degrees Fahrenheit, pulse of 66, respiration 20, blood pressure 105/41, O2 sat of 97% on room air. HEENT: Show pupils to be equal, round, reactive to light and accommodating. Extraocular muscles are intact. NECK: Neck is supple with no JVD or carotid bruit. CARDIOVASCULAR SYSTEM: Show normal first and second heart sounds with no gallops or murmur. RESPIRATORY SYSTEM: Show good air entry on both sides of the lungs with no abnormal breath sounds. GASTROINTESTINAL SYSTEM: Show abdomen to be full, soft, nontender with no organomegaly or rigidity. NEUROLOGICAL: Neuro exam shows no focal deficit. MUSCULOSKELETAL SYSTEM: Show no joint swelling or tenderness. DERMATOLOGICAL SYSTEM: Show no skin rash. GENITOURINARY SYSTEM: Showing no costovertebral angle tenderness. PERTINENT LABORATORY AND IMAGING STUDIES: The patient has CBC done with normal white count, low hemoglobin of 10.7 and low hematocrit of 31.1 with CBC differential showing elevated monocyte count of 8.1% and elevated segmented neutrophil count of 75.3%. The patient's coagulation studies show elevated D-dimer of 251 and chemistry show high potassium level of 5.4 with low chloride of 92.7 with low CO2 of 20 and high BUN of 50 with high creatinine of 9.4 consistent with the patient's end-stage renal disease. The patient's rest of chemistry was unremarkable. Cardiac enzymes show elevated troponin level of 0.044. The patient's lipid panel show high triglyceride level of 157. DIAGNOSES: 1. Chest pain. 2. End-stage renal disease, on dialysis. 3. Hyperkalemia. 4. Dyspnea. PLAN OF CARE: 1. The patient will be admitted to telemetry. 2. The patient will have cardiac enzymes involving troponin, total CK and CK-MB checked every 6 hours x 2 level. 3. The patient will have Nephrology consult with Dr. Leazma for end-stage renal disease as requested by the Emergency Room physician. 4. The patient will have Cardiology consult with Dr. Boykin because of chest discomfort with elevated troponin level. 5. The patient will be on IV heparin drip by protocol for treatment of coronary artery disease. 6. The patient will be on daily aspirin 325 mg by mouth and will be on nitroglycerin paste half inch to anterior chest wall t.i.d. as well as sublingual nitroglycerin 0.4 mg every 5 minutes as needed for breakthrough chest pain. 7. The patient will be on Tylenol 650 mg by mouth every 4 hours for fever and headache. 8. The patient will be on Accu-Cheks every 4 hours followed by low-dose sliding scale using regular insulin coverage. 9. The patient's chest discomfort with dyspnea will be managed by Cardiology consult. JOB# [id number] OCN/NTS
[2018-09-19 08:05] LABS: Calcium 8.6 mg/dL (8.4-10.2)
[2018-09-19] MEDS ORDERED: NACL 0.9% 100 ML IV PRN (09:05)
--- NOTE | 2018-09-19 09:05 | Consultation ---
History of Present Illness - History of Present Illness Thank you for the consultation ! Patient was evaluated today My assessment and plan are as follows; End-stage renal disease: Patient will receive hemodialysis treatment today Patient admitted with generalized weakness and shortness of breath Admitted with a BUN of 50 creatinine 9.4 potassium 5.4 and bicarbonate 20 with hemoglobin of 10.7 Patient will need hemodialysis treatment today and then follow-up Anemia in end-stage renal disease current hemoglobin around 10.7 satisfactory Will give him erythropoietin 20,000 units subcutaneous today Hypertension and volume: To monitor patient counseled and educated Mild hyperkalemia should correct with hemodialysis Mild metabolic acidosis will need hemodialysis treatment today Generalized weakness and fatigue with some shortness of breath patient does need dialysis and then follow-up by the primary team Multiple other comorbidities including congestive heart failure, diabetes, DVT, GERD, liver disease, Plan of care discussed with patient all questions were answered We'll continue to follow and make recommendation from renal standpoin Patient was adequately counseled and educated regarding multiple renal related issues. Renal prognosis remains guarded at this time All renal related questions were answered and simple Bulgarian pertinent lab studies as well as imaging results were also discussed with patient We will continue to follow and make recommendations from renal standpoint. Thank you for the consultation Author: London Dowling M.D. [facility], [address] [place] [address] Tel; [phone] Source of information: From patient an old chart History of present illness Patient is a 62-year-old male is currently maintenance hemodialysis on Sunday and Sunday schedule, patient He denies having any cough or expectoration fever chills nausea vomiting Hospital with complaints of shortness of breath and some tightness in his chest described as pain midsternal in location. Patient does not miss his dialysis treatment however he's been traveling back and forth to [place] in August. His dialysis treatments are well tolerated and he does have a currently functioning access Past medical history significant for End-stage renal disease currently on maintenance hemodialysis Anemia and end-stage renal disease Secondary hyperparathyroidism DVT Diabetes Gastroesophageal reflux disorder Current allergies: None Home medication present medication: Reviewed Social history: Reviewed Family history: Reviewed Review of systems shortness of breath chest tightness described as pain no fever chills nausea vomiting otherwise Patient does complain of some generalized weakness but better All other review of system negative Physical examination Vitals: Reviewed General: No acute distress HEENT: Oral mucosa moist no pallor or icterus Neck: Supple without any JVD thyromegaly or nodular mass Chest: Clear to auscultation Heart: Regular rate and rhythm S1-S2 heard no S3-S4 Abdomen: Soft nontender, bowel sounds present no renal bruit no suprapubic masses no CVA tenderness noted Extremity: Minimal edema dry skin no peripheral cyanosis Endocrine: Thyroid not enlarged Psychiatric: No agitation and aggression noted Musculoskeletal: No joint effusion noted Labs and x-rays: Reviewed from this admission Medications and Allergies Allergies Allergy/AdvReac Type Severity Reaction Status Date / Time No Known Allergies Allergy Verified 02/20/18 10:09 Home Medications Medication Instructions Recorded Confirmed Last Taken Type Calcium Acetate [Phoslo] 667 mg PO TID 01/08/16 12/31/17 11/06/16 History B Complex 11/Folic/C/Biot/Zinc 1 each PO DAILY 11/07/16 12/31/17 11/06/16 History [Dialyvite with Zinc Tablet] NIFEdipine XL [Procardia Xl] 60 mg PO QDAY 11/07/16 12/31/17 11/06/16 History Glimepiride [Amaryl] 4 mg PO BID 01/03/17 12/31/17 Unknown History Lipase/Protease/Amylase [Jamaal Peralta 1 cap PO TID 01/03/17 12/31/17 Unknown History 24,000 Units Capsule] Omeprazole 40 mg PO QAM 01/03/17 12/31/17 Unknown History Jamaal Peralta 24,000 Units Capsule 1 cap PO 01/01/18 12/31/17 07:00 History 1 Folic Acid 1 mg PO DAILY 01/01/18 01/01/18 12/31/17 07:00 History Labetalol 200 mg PO TID 01/01/18 01/01/18 12/31/17 07:00 History 200 Loperamide 2 mg PO PRN 01/01/18 12/31/17 07:00 History 2 mg Vitamin D2 1 PO 1XW 01/01/18 12/29/17 07:00 History 1 hydrALAZINE 50 mg PO BID 01/01/18 01/01/18 12/31/17 07:00 History Active Meds: Active Medications Acetaminophen (Tylenol) 650 mg PO Q4H PRN PRN Reason: Headache Aspirin (Aspirin) 325 mg PO QDAY [facility] Dextrose (D50w (25gm) Syringe) 50 ml IV PRN PRN PRN Reason: Hypoglycemia Heparin Sodium/Sodium Chloride (Heparin/ 0.45% Nacl-25,000 Unit/500 Ml) 25,000 unit in 500 mls @ 15 mls/hr IV TITRATE [facility]; Protocol Last Admin: 09/19/18 01:16 Dose: 750 units/hr, 15 mls/hr Documented by: Insulin Human Regular (Humulin R) 0 units SUB-Q Q4H [facility]; Protocol Last Admin: 09/19/18 05:00 Dose: Not Given Documented by: Nitroglycerin (Nitrostat) 0.4 mg SL .Q5MIN PRN PRN Reason: Chest Pain Nitroglycerin (Nitro-Bid 2%) 0.5 inch TP QIDNTG [facility]; Protocol Last Admin: 09/19/18 06:44 Dose: 0.5 inch Documented by: Exam - Vital Signs Vital signs: Vital Signs Temp Pulse Resp BP Pulse Ox 97.9 F 66 20 105/41 97 09/18/18 18:24 09/18/18 18:24 09/18/18 18:24 09/18/18 18:24 09/18/18 18:24 Results - Lab Results 09/18/18 22:34 09/20/18 05:52 Most recent lab results Calcium 8.6 mg/dL (8.4-10.2) 09/19/18 07:12
--- NOTE | 2018-09-19 09:22 | Event Note ---
Date: 09/19/18 Patient with ESRD on dialysis, presents with chest pain. I have seen and examined him. cardiology and Nephrology consulted.
[2018-09-19] MEDS ORDERED: PROCRIT SUB-Q NR (10:00)
--- NOTE | 2018-09-19 10:06 | Consultation ---
History of Present Illness Consult date: 09/19/18 Requesting physician: MATTHEW OROZCO Consult reason: chest pain History of present illness: The pt is a 62 YO male with a past medical history of CAD, HTN, DM, ESRD on HD, tobacco use. He is followed in our office by Dr. Arshad. He speaks Greek and HPI is obtained through his family members translating at bedside. He presented with complaints of epigastric pain, nausea and vomiting for one day prior to arrival. He describes his epigastric pain as a constant stabbing pain. The pain is highly reproducible with palpation of the epigastric region. He also c/o generalized weakness. He denies any chest pain, palpitations, diaphoresis, dizziness or syncope. LHC done 12/2008 showed left main 40% stenosis, ostial 40-50% stemosis, LAD luminal irregularities, 70% stenosis in second obtuse marginal branch small vessel, EF 60%. Echo done 07/2016 showed mild LVH, EF 55-60%, impaired relaxation, mild MR, mild TR, RVSP 41mmHg, small pericardial effusion. Lexiscan MPI stress test done 07/2016 was negative for ischemia, EF 58%. Past History Past Medical History: CAD, dialysis, ESRD, hypertension, hyperlipidemia Social history: smoking Medications and Allergies Allergies Allergy/AdvReac Type Severity Reaction Status Date / Time No Known Allergies Allergy Verified 02/20/18 10:09 Home Medications Medication Instructions Recorded Confirmed Last Taken Type Calcium Acetate [Phoslo] 667 mg PO TID 01/08/16 12/31/17 11/06/16 History B Complex 11/Folic/C/Biot/Zinc 1 each PO DAILY 11/07/16 12/31/17 11/06/16 History [Dialyvite with Zinc Tablet] NIFEdipine XL [Procardia Xl] 60 mg PO QDAY 11/07/16 12/31/17 11/06/16 History Glimepiride [Amaryl] 4 mg PO BID 01/03/17 12/31/17 Unknown History Lipase/Protease/Amylase [Jamaal Peralta 1 cap PO TID 01/03/17 12/31/17 Unknown History 24,000 Units Capsule] Omeprazole 40 mg PO QAM 01/03/17 12/31/17 Unknown History Jamaal Peralta 24,000 Units Capsule 1 cap PO 01/01/18 12/31/17 07:00 History 1 Folic Acid 1 mg PO DAILY 01/01/18 01/01/18 12/31/17 07:00 History Labetalol 200 mg PO TID 01/01/18 01/01/18 12/31/17 07:00 History 200 Loperamide 2 mg PO PRN 01/01/18 12/31/17 07:00 History 2 mg Vitamin D2 1 PO 1XW 01/01/18 12/29/17 07:00 History 1 hydrALAZINE 50 mg PO BID 01/01/18 01/01/18 12/31/17 07:00 History Active Meds: Active Medications Acetaminophen (Tylenol) 650 mg PO Q4H PRN PRN Reason: Headache Aspirin (Aspirin) 325 mg PO QDAY DE[facility] Dextrose (D50w (25gm) Syringe) 50 ml IV PRN PRN PRN Reason: Hypoglycemia Epoetin John (Procrit) 20,000 unit SUB-Q ONCE NR Stop: 09/19/18 16:00 Heparin Sodium/Sodium Chloride (Heparin/ 0.45% Nacl-25,000 Unit/500 Ml) 25,000 unit in 500 mls @ 15 mls/hr IV TITRATE [facility]; Protocol Last Admin: 09/19/18 01:16 Dose: 750 units/hr, 15 mls/hr Documented by: Sodium Chloride (Nacl 0.9%) 100 mls @ 999 mls/hr IV TAY PRN PRN Reason: Hypotension Insulin Human Regular (Humulin R) 0 units SUB-Q Q4H [facility]; Protocol Last Admin: 09/19/18 05:00 Dose: Not Given Documented by: Nitroglycerin (Nitrostat) 0.4 mg SL .Q5MIN PRN PRN Reason: Chest Pain Nitroglycerin (Nitro-Bid 2%) 0.5 inch TP QIDNTG [facility]; Protocol Last Admin: 09/19/18 06:44 Dose: 0.5 inch Documented by: Review of Systems Constitutional: no weight loss, no weight gain, no fever, no chills, no sweats Ears, nose, mouth and throat: no ear pain, no nose pain, no sinus pressure, no sinus pain Cardiovascular: no chest pain, no orthopnea, no palpitations, no rapid/irregular heart beat, no edema, no syncope, no lightheadedness, no shortness of breath, no dyspnea on exertion, no high blood pressure, no leg edema Respiratory: no cough, no shortness of breath, no dyspnea on exertion, no congestion, no wheezing, no pain on inspiration Gastrointestinal: abdominal pain, nausea, vomiting, no diarrhea, no constipation, no change in bowel habits, no hematemesis, no coffee ground emesis, no BRBPR, no melena, no hematochezia Genitourinary Male: no dysuria, no hematuria, no flank pain, no discharge, no urinary frequency, no urinary hesitancy Musculoskeletal: no neck stiffness, no neck pain, no shooting arm pain, no arm numbness/tingling, no low back pain, no shooting leg pain Integumentary: no rash, no pruritis, no redness, no sores, no wounds Neurological: no head injury, no paralysis, no weakness, no parathesias, no numbness, no tingling, no seizures, no syncope Psychiatric: no anxiety Endocrine: no cold intolerance, no heat intolerance Hematologic/Lymphatic: no easy bruising, no easy bleeding Allergic/Immunologic: no urticaria, no wheezing Physical Examination Vital Signs Temp Pulse Resp BP Pulse Ox 97.9 F 66 20 105/41 97 09/18/18 18:24 09/18/18 18:24 09/18/18 18:24 09/18/18 18:24 09/18/18 18:24 General appearance: no acute distress HEENT: Positive: PERRL, Normocephaly, Mucus Membranes Moist Neck: Positive: neck supple, trachea midline Cardiac: Positive: Reg Rate and Rhythm, S1/S2, Systolic Murmur Lungs: Positive: Decreased Breath Sounds Neuro: Positive: Grossly Intact Abdomen: Positive: Soft. Negative: Tender Skin: Positive: Clear. Negative: Rash, Wound Musculoskeletal: No Pain Extremities: Absent: edema Results 09/18/18 22:34 09/19/18 07:12 Cardiac Enzymes 09/18/18 09/18/18 09/19/18 Range/Units 18:45 22:34 00:49 AST 21 (5-40) units/L CK-MB (CK-2) 1.9 1.7 (0.0-4.0) ng/mL Coagulation 09/18/18 09/18/18 Range/Units 18:57 22:34 PT 14.4 14.4 (12.2-14.9) Sec. INR 1.08 1.08 (0.87-1.13) APTT 31.2 28.4 (24.2-36.6) Sec. Lipids 09/18/18 Range/Units 18:40 Triglycerides 157 H (2-149) mg/dL Cholesterol 125 (50-199) mg/dL HDL Cholesterol 37 L (40-59) mg/dL Cholesterol/HDL Ratio 3.37 % CBC 09/18/18 09/18/18 Range/Units 18:40 22:34 WBC 6.4 (4.5-11.0) K/mm3 RBC 3.31 L (3.65-5.03) M/mm3 Hgb 10.7 L 10.2 L (11.8-15.2) gm/dl Hct 31.1 L 29.8 L (35.5-45.6) % Plt Count 150 200 (140-440) K/mm3 Lymph # 0.7 L (1.2-5.4) K/mm3 Gibson # 0.5 (0.0-0.8) K/mm3 Eos # 0.4 (0.0-0.4) K/mm3 Baso # 0.0 (0.0-0.1) K/mm3 Comprehensive Metabolic Panel 09/18/18 09/18/18 09/19/18 Range/Units 18:40 18:45 07:12 Sodium 137 137 (137-145) mmol/L Potassium 5.4 H 5.1 H (3.6-5.0) mmol/L Chloride 92.7 L 92.4 L (98-107) mmol/L Carbon Dioxide 20 L 27 D (22-30) mmol/L BUN 50 H 61 H (9-20) mg/dL Creatinine 9.4 H 10.7 H (0.8-1.5) mg/dL Glucose 145 H 156 H (75-100) mg/dL Calcium 8.5 8.6 (8.4-10.2) mg/dL Direct Bilirubin < 0.2 (0-0.2) mg/dL Indirect Bilirubin 0.2 mg/dL AST 21 (5-40) units/L ALT 8 (7-56) units/L Alkaline Phosphatase 88 (35-129) units/L Total Protein 7.2 (6.3-8.2) g/dL Albumin 4.6 (3.9-5) g/dL - Imaging and Cardiology Echo: report reviewed ( 07/2016 showed mild LVH, EF 55-60%, impaired relaxation, mild MR, mild TR, RVSP 41mmHg, small pericardial effusion. ) Cardiac cath: report reviewed ( 12/2008 showed left main 40% stenosis, ostial 40- 50% stemosis, LAD luminal irregularities, 70% stenosis in second obtuse marginal branch small vessel, EF 60%. ) EKG: report reviewed, image reviewed EKG interpretations - Telemetry EKG Rhythm: Sinus Rhythm - EKG Sinus rhythms and dysrhythmias: sinus rhythm Assessment and Plan Epigastric pain / nausea & vomiting ESRD on HD For HD today. Nephrology following. Hyperkalemia For HD today. CAD 12/2008 showed left main 40% stenosis, ostial 40-50% stenosis, LAD luminal irregularities, 70% stenosis in second obtuse marginal branch small vessel, EF 60%. F/u echo. Plan for lexiscan MPI stress test in AM. NPO after MN. Minimally elevated troponins ECG with no acute ischemic changes. Currently nonspecific in setting of ESRD. D/c heparin gtt. F/u echo. Plan for lexiscan MPI stress test in AM. NPO after MN. HTN DM Anemia H/o tobacco use The patient has been seen in conjunction with Dr. Medina who agrees with the assessment and plan of care.
[2018-09-19] MEDS ORDERED: NACL 0.9 (PRIMING MACHINE ONLY DIALYSIS) MC ONE (10:13)
[2018-09-19] MEDS ORDERED: AFLURIA QUAD 2018-2019 SYRINGE IM ONE (12:00)
[2018-09-19] MEDS ORDERED: ZOFRAN IV PRN (12:30)
[2018-09-19 13:55] LABS: Hepatitis B Surface Antigen Non-Reactive (Negative); Hepatitis C Virus Antibody Non-Reactive (NonReactive)
[2018-09-19] MEDS: ASPIRIN PO SCH (18:58)
[2018-09-20] MEDS: HumuLIN R SUB-Q SCH ×5 (01:09→15:00)
[2018-09-20] MEDS: APRESOLINE PO SCH ×2 (01:15→10:00)
[2018-09-20] MEDS: NORMODYNE PO SCH ×3 (01:15→14:00)
[2018-09-20] MEDS: NITRO-BID 2% TP SCH ×4 (05:14→18:00)
[2018-09-20 07:13] LABS: Calcium 8.4 mg/dL (8.4-10.2)
[2018-09-20] MEDS ORDERED: LEXISCAN IV ONE ×2 (08:45→08:46)
--- NOTE | 2018-09-20 08:48 | Progress Note ---
Subjective Interval history: Came to see the patient today he is out for testing Patient has had hemodialysis treatment done yesterday Tolerated treatment well discussed with dialysis nurse no issues with access Labs were reviewed Patient will need hemodialysis treatment tomorrow Objective - Vital Signs Vital signs: Vital Signs - 12hr 09/19/18 09/20/18 09/20/18 20:57 00:04 04:40 Temperature 98.3 F 98.4 F Pulse Rate 89 83 83 Respiratory 18 18 Rate Blood Pressure 206/76 192/68 O2 Sat by Pulse 100 98 Oximetry - Lab 09/18/18 22:34 09/20/18 05:52 Most recent lab results Calcium 8.4 mg/dL (8.4-10.2) 09/20/18 05:52 Medications & Allergies - Medications Allergies/Adverse Reactions: Allergies No Known Allergies Allergy (Verified 02/20/18 10:09) Home Medications: Home Medications Medication Instructions Recorded Confirmed Last Taken Type Calcium Acetate [Phoslo] 667 mg PO TID 01/08/16 12/31/17 11/06/16 History B Complex 11/Folic/C/Biot/Zinc 1 each PO DAILY 11/07/16 12/31/17 11/06/16 History [Dialyvite with Zinc Tablet] NIFEdipine XL [Procardia Xl] 60 mg PO QDAY 11/07/16 12/31/17 11/06/16 History Glimepiride [Amaryl] 4 mg PO BID 01/03/17 12/31/17 Unknown History Lipase/Protease/Amylase [Jamaal Peralta 1 cap PO TID 01/03/17 12/31/17 Unknown History 24,000 Units Capsule] Omeprazole 40 mg PO QAM 01/03/17 12/31/17 Unknown History Jamaal Peralta 24,000 Units Capsule 1 cap PO 01/01/18 12/31/17 07:00 History 1 Folic Acid 1 mg PO DAILY 01/01/18 01/01/18 12/31/17 07:00 History Labetalol 200 mg PO TID 01/01/18 01/01/18 12/31/17 07:00 History 200 Loperamide 2 mg PO PRN 01/01/18 12/31/17 07:00 History 2 mg Vitamin D2 1 PO 1XW 01/01/18 12/29/17 07:00 History 1 hydrALAZINE 50 mg PO BID 01/01/18 01/01/18 12/31/17 07:00 History Active Medications: Generic Name Dose Route Start Last Admin Trade Name Freq PRN Reason Stop Dose Admin Acetaminophen 650 mg 09/19/18 06:43 Tylenol PO Q4H PRN Headache Aspirin 325 mg 09/19/18 10:00 09/19/18 18:58 Aspirin PO Not Given QDAY [facility] Dextrose 50 ml 09/18/18 22:33 D50w (25gm) Syringe IV PRN PRN Hypoglycemia Hydralazine HCl 50 mg 09/20/18 01:15 09/20/18 01:15 Apresoline PO 50 mg BID [facility] Administration Sodium Chloride 100 mls @ 999 mls/hr 09/19/18 09:05 Nacl 0.9% IV TAY PRN Hypotension Insulin Human Regular 0 units 09/18/18 23:00 09/20/18 05:13 Humulin R SUB-Q Not Given Q4H [facility] Protocol Labetalol HCl 200 mg 09/20/18 01:05 09/20/18 01:15 Normodyne PO 200 mg TID [facility] Administration Nitroglycerin 0.4 mg 09/18/18 22:21 Nitrostat SL .Q5MIN PRN Chest Pain Nitroglycerin 0.5 inch 09/18/18 23:00 09/20/18 05:14 Nitro-Bid 2% TP Not Given QIDNTG [facility] Protocol Ondansetron HCl 4 mg 09/19/18 12:30 09/19/18 12:36 Zofran IV 4 mg Q8H PRN Administration Nausea And Vomiting Regadenoson 0.4 mg 09/20/18 08:46 Lexiscan IV 09/20/18 08:47 ONCE ONE
--- NOTE | 2018-09-20 13:38 | Treadmill Report ---
LEXISCAN NUCLEAR IMAGING A 62-year-old male was being evaluated for chest pain. Baseline EKG showed sinus rhythm with minor nonspecific ST-T changes. The patient received IV Lexiscan with no significant symptoms of chest pain or shortness of breath. No significant ST-T changes noted to suggest ischemia. The patient had myocardial perfusion imaging technetium pyrophosphate scan post-vasodilation with Lexiscan and also at rest. These images showed very mild perfusion defect post-vasodilation and also during rest. These defects were found to be fixed. Left ventricular size is upper limits of normal with mild diffuse hypokinesis. Ejection fraction was calculated to be around 47%. Transient ischemic dilation ratio was found to be 1.14. FINAL IMPRESSION: 1. The patient tolerated IV Lexiscan well without any side effects. 2. No ischemic changes on the EKG. 3. Myocardial perfusion images did not show any significant perfusion defects to suggest ischemia. There is no evidence of significant ischemia. Left ventricular systolic function was calculated to be lower limits of normal to mildly depressed in the range of 47% on the post-stress gated study. JOB# [id number] BAN/JOSE ANTONIO
--- NOTE | 2018-09-20 14:08 | Progress Note ---
Assessment and Plan Epigastric pain / nausea & vomiting Currently resolved. ESRD on HD Nephrology following. Hyperkalemia Improved s/p HD. CAD 12/2008 showed left main 40% stenosis, ostial 40-50% stenosis, LAD luminal irregularities, 70% stenosis in second obtuse marginal branch small vessel, EF 60%. S/p lexiscan MPI stress test today which was negative for ischemia, EF 47%. Echo reviewed - EF 55-60%, mild LVH, impaired relaxation, small pericardial effusion. Minimally elevated troponins ECG with no acute ischemic changes. Currently nonspecific in setting of ESRD. D/c heparin gtt. S/p lexiscan MPI stress test today which was negative for ischemia, EF 47%. Echo reviewed - EF 55-60%, mild LVH, impaired relaxation, small pericardial effusion. HTN DM Anemia H/o tobacco use Currently stable cardiac status. Pt may discharge home from cardiology standpoint. Recommend follow up in our office with Dr. Arshad within 1-2 weeks of hospital discharge ([phone]). The patient has been seen in conjunction with Dr. Medina who agrees with the assessment and plan of care. Subjective Date of service: 09/20/18 Principal diagnosis: epigastric pain, n/v Interval history: pt resting in bed, seen s/p stress test. no current complaints. Objective Last Vital Signs Temp 98.4 F 09/20/18 04:40 Pulse 86 09/20/18 09:57 Resp 18 09/20/18 04:40 BP 81/36 09/20/18 09:57 Pulse Ox 98 09/20/18 04:40 - Physical Examination General: No Apparent Distress HEENT: Positive: PERRL, Normocephaly, Mucus Membranes Moist Neck: Positive: neck supple, trachea midline Cardiac: Positive: Reg Rate and Rhythm, S1/S2 Lungs: Positive: clear to auscultation Neuro: Positive: Grossly Intact Abdomen: Positive: Soft. Negative: Tender Skin: Positive: Clear. Negative: Rash, Wound Musculoskeletal: No Pain Extremities: Absent: edema - Labs and Meds Comprehensive Metabolic Panel 09/20/18 Range/Units 05:52 Sodium 141 (137-145) mmol/L Potassium 4.3 (3.6-5.0) mmol/L Chloride 96.9 L (98-107) mmol/L Carbon Dioxide 30 (22-30) mmol/L BUN 23 H (9-20) mg/dL Creatinine 5.6 H (0.8-1.5) mg/dL Glucose 105 H (75-100) mg/dL Calcium 8.4 (8.4-10.2) mg/dL - Imaging and Cardiology EKG: report reviewed, image reviewed Echo: report reviewed ( 07/2016 showed mild LVH, EF 55-60%, impaired relaxation, mild MR, mild TR, RVSP 41mmHg, small pericardial effusion. ) Cardiac cath: report reviewed ( 12/2008 showed left main 40% stenosis, ostial 40- 50% stemosis, LAD luminal irregularities, 70% stenosis in second obtuse marginal branch small vessel, EF 60%. ) - EKG Sinus rhythms and dysrhythmias: sinus rhythm
--- NOTE | 2018-09-20 14:32 | Discharge Summary ---
Providers - Providers Date of Admission: 09/18/18 22:12 Date of discharge: 09/20/18 Attending physician: MATTHEW OROZCO 09/18/18 20:17 Consult to Physician [CONS] Urgent Comment: Dr. Morrison spoke with Dr. Lezama @ 2014 Consulting Provider: JESI LEZAMA Physician Instructions: Reason For Exam: esrd 09/19/18 09:36 Consult to Physician [CONS] Routine Comment: Consulting Provider: SABINA AUSTIN Physician Instructions: Reason For Exam: chest pain Primary care physician: YOLETTE NOYOLA Hospitalization Condition: Fair Hospital course: Patient is 63 yo with ESRD on dialysis, hypertension, coronary artery disease. he presented with chest pain. Troponins mildly elevated. He was admitted , evaluated by Cardiology and Nephrology. Stress test was negative, so discharged home. Chest pain determined non cardiac due to GERD. Disposition: TO HOME OR SELFCARE - Discharge Diagnoses (1) Chest pain Status: Acute (2) Hypertensive urgency Status: Acute (3) Diabetes mellitus, type 2 Status: Chronic (4) ESRD (end stage renal disease) on dialysis Status: Chronic (5) GERD (gastroesophageal reflux disease) Status: Chronic Qualifiers: Esophagitis presence: without esophagitis Qualified Code(s): K21.9 - Gastro-esophageal reflux disease without esophagitis Core Measure Documentation - Palliative Care Palliative Care/ Comfort Measures: Not Applicable - Core Measures Any of the following diagnoses?: none Exam - Constitutional Vitals: Temp Pulse Resp BP Pulse Ox 98.4 F 86 18 81/36 98 09/20/18 04:40 09/20/18 09:57 09/20/18 04:40 09/20/18 09:57 09/20/18 04:40 Plan Activity: advance as tolerated Diet: low fat, low cholesterol, low salt, renal Additional Instructions: 1.Follow up with PCP in 1 week. 2.Continue routine hemodialysis as scheduled. Follow up with: YOLETTE NOYOLA MD [Primary Care Provider] - 7 Days
--- NOTE | 2018-09-20 15:01 | XRay Report ---
AP CHEST: HISTORY: Chest pain, shortness of breath Underlying COPD is suspected. Small left pleural effusion or chronic left pleural thickening is unchanged since 08/22/17. The lungs are clear otherwise. Normal heart size and pulmonary vascularity. IMPRESSION: COPD. Probable chronic left pleural thickening.
[2018-09-20 16:41] VITALS: BP 201/65
[2018-09-20] MEDS: ASPIRIN PO SCH (18:20)
--- NOTE | 2018-09-25 06:42 | Query- Chest Pain ---
Malissa Lux Stef Date: 09/25/18 Ore Puncher/CDS: Vadim/Ralph Phone#: [phone] Exercise your independent professional judgment when responding to query. Questions asked do not imply a particular answer is desired or expected. We greatly appreciate your clarification on this issue. Clinical Documentation States: The pt is a 62 YO male with a past medical history of CAD, HTN, DM, ESRD on HD, tobacco use. He presented with complaints of epigastric pain, nausea and vomiting for one day prior to arrival. He describes his epigastric pain as a constant stabbing pain. The pain is highly reproducible with palpation of the epigastric region. He also c/o generalized weakness. He denies any chest pain, palpitations, diaphoresis, dizziness or syncope. Assessment and Plan Epigastric pain / nausea & vomiting Minimally elevated troponins CAD Clinical Findings Show: 09/18/18(18:40) 09/18/17(21:15) 09/18/18(22:34) Troponin 0.044 0.050 0.035 Lexiscan 09/20/18----No evidence of significant ischemia. Please document the etiology of Chest Pain: [ ] Myocardial Infarction [ ] Pneumonia [ ] Mediastinitis [ ] Costochondritis [ ] Pulmonary Embolism [ ] Coronary Artery Disease [x ] GERD [ ] Other: [ ] Comment/Explanation: Present on Admission: [x ] Yes (Y) [ ] Clinically undeterminable (W) [ ] No(N) Please document response in your Progress Notes and/or Discharge Summary and indicate if the condition was present on admission. SARI
== END 2018-09-20 18:30 | disposition home or self-care (01) | DRG 391 ==
LOC: ED 18:11 → 4A 22:12
PROVIDERS: ADMIT Internal Medicine; ATTEND Internal Medicine
PROC: 5A1D70Z Performance of Urinary Filtration, Intermittent, Less than 6 Hours Per Day (ICD-10-PCS; principal; 2018-09-19)
DX: K21.9 Gastro-esophageal reflux disease without esophagitis (principal); N18.6 End stage renal disease; N25.81 Secondary hyperparathyroidism of renal origin; I13.2 Hypertensive heart and chronic kidney disease with heart failure and with stage 5 chronic kidney disease, or end stage renal disease; E87.2 Acidosis; R07.9 Chest pain, unspecified; I50.9 Heart failure, unspecified; E87.5 Hyperkalemia; I25.10 Atherosclerotic heart disease of native coronary artery without angina pectoris; E11.22 Type 2 diabetes mellitus with diabetic chronic kidney disease; F17.200 Nicotine dependence, unspecified, uncomplicated; D63.1 Anemia in chronic kidney disease; Z79.899 Other long term (current) drug therapy; Z86.718 Personal history of other venous thrombosis and embolism
CPT/HCPCS: 36415; 71045; 78452; 80048; 80061; 80074; 80076; 82550; 82553; 82962; 84484; 85014; 85018; 85025; 85049; 85379; 85520; 85610; 85730; 90471; 90686; 93005; 93010; 93017; 93306; G0378; A9502; G0008; J0885; J1644; J2405; J2785; J7030

== ENCOUNTER 2018-10-04 09:02 | Outpatient (CLI) | payer MEDICARE ==
--- NOTE | 2018-10-04 10:47 | XRay Report ---
CHEST 2 VIEWS INDICATION: Pneumonia. COMPARISON: 09/18/2018 CXR and 12/31/[address] images. FINDINGS: Frontal and lateral chest radiographs demonstrate stable cardiomediastinal silhouette and aortic atherosclerotic calcifications. Left more than right basilar chronic opacities again noted, previously representing scarring and small complex/loculated left pleural effusion. Left hemidiaphragm again obscured. Costophrenic angle blunting on the right also again noted. No CHF. Demineralized bones. CONCLUSION: No significant interval change in left more than right lower lung opacities, as described. Thank you for the opportunity to participate in this patient's care.
== END 2018-10-04 09:03 | disposition home or self-care (01) ==
LOC: XRAY 09:02
PROVIDERS: ATTEND Nurse Practitioner Acute Care
DX: J18.9 Pneumonia, unspecified organism (principal); I13.2 Hypertensive heart and chronic kidney disease with heart failure and with stage 5 chronic kidney disease, or end stage renal disease; N18.6 End stage renal disease; E11.22 Type 2 diabetes mellitus with diabetic chronic kidney disease; K21.9 Gastro-esophageal reflux disease without esophagitis; I50.9 Heart failure, unspecified; E03.9 Hypothyroidism, unspecified; Z87.891 Personal history of nicotine dependence
CPT/HCPCS: 71046

== ENCOUNTER 2018-10-22 10:46 | Emergency (ER) | payer MEDICARE ==
[2018-10-22] MEDS ORDERED: NACL 0.9% 1000 ML 1,000 ML IV ONE (11:19)
--- NOTE | 2018-10-22 11:24 | Emergency Department Report ---
Blank Doc - Documentation Documentation: 63 y/o male with pmh of CHF, ESRD 4 wiht dialysis today, DM, Liver disease, hy pothyroid disease and HTN c/o of 2 day history of abdominal pain and nausea and vomiting worsen since onset upper abdominal pain associated. Last BM 2 days ago. Denies CP or SOB PLAN LABs and Acute abdomen series.
--- NOTE | 2018-10-22 11:57 | Emergency Department Report ---
ED General Adult HPI - General Chief complaint: Abdominal Pain Stated complaint: VOMITING/STOMACH PAIN Time Seen by Provider: 10/22/18 11:21 Source: patient, family Mode of arrival: Ambulatory Limitations: Language Barrier - History of Present Illness Initial comments: 63-year-old male appears to be presenting in a similar fashion to his hospitalization on 09/2018. As before he complains of epigastric pain and nausea and vomiting. He was able to finish his dialysis. I see that he was admitted the last time under similar circumstances. He was cleared by cardiology as per the prior hospitalization 09/21: Assessment and Plan Epigastric pain / nausea & vomiting Currently resolved. ESRD on HD Nephrology following. Hyperkalemia Improved s/p HD. CAD 12/2008 showed left main 40% stenosis, ostial 40-50% stenosis, LAD luminal irregularities, 70% stenosis in second obtuse marginal branch small vessel, EF 60%. S/p lexiscan MPI stress test today which was negative for ischemia, EF 47%. Echo reviewed - EF 55-60%, mild LVH, impaired relaxation, small pericardial effusion. Minimally elevated troponins ECG with no acute ischemic changes. Currently nonspecific in setting of ESRD. D/c heparin gtt. S/p lexiscan MPI stress test today which was negative for ischemia, EF 47%. Echo reviewed - EF 55-60%, mild LVH, impaired relaxation, small pericardial effusion. HTN DM Anemia H/o tobacco use Currently stable cardiac status. Pt may discharge home from cardiology standpoint. Recommend follow up in our office with Dr. Arshad within 1-2 weeks of hospital discharge ([phone]). At this time he states that the nausea has resolved. He is not complaining of much abdominal discomfort. He feels like he may have had some chills but reported to have a fever. He has no prior history of abdominal surgery. -: Gradual, hour(s) Location: abdomen Radiation: non-radiation Quality: aching Consistency: intermittent Improves with: none Worsens with: none Associated Symptoms: denies other symptoms - Related Data Home Medications Medication Instructions Recorded Confirmed Last Taken Calcium Acetate [Phoslo] 667 mg PO TID 01/08/16 12/31/17 11/06/16 B Complex 11/Folic/C/Biot/Zinc 1 each PO DAILY 11/07/16 12/31/17 11/06/16 [Dialyvite with Zinc Tablet] NIFEdipine XL [Procardia Xl] 60 mg PO QDAY 11/07/16 12/31/17 11/06/16 Glimepiride [Amaryl] 4 mg PO BID 01/03/17 12/31/17 Unknown Lipase/Protease/Amylase [Jamaal Peralta 1 cap PO TID 01/03/17 12/31/17 Unknown 24,000 Units Capsule] Omeprazole 40 mg PO QAM 01/03/17 12/31/17 Unknown Jamaal Peralta 24,000 Units Capsule 1 cap PO 01/01/18 12/31/17 07:00 1 Folic Acid 1 mg PO DAILY 01/01/18 01/01/18 12/31/17 07:00 Labetalol 200 mg PO TID 01/01/18 01/01/18 12/31/17 07:00 200 Loperamide 2 mg PO PRN 01/01/18 12/31/17 07:00 2 mg Vitamin D2 1 PO 1XW 01/01/18 12/29/17 07:00 1 hydrALAZINE 50 mg PO BID 01/01/18 01/01/18 12/31/17 07:00 Previous Rx's Medication Instructions Recorded Last Taken Type Famotidine [Pepcid] 20 mg PO BID #30 tablet 10/22/18 Unknown Rx Ondansetron [Zofran Odt] 4 mg PO Q6H PRN #7 tab.rapdis 10/22/18 Unknown Rx Allergies Allergy/AdvReac Type Severity Reaction Status Date / Time No Known Allergies Allergy Verified 02/20/18 10:09 ED Review of Systems ROS: Stated complaint: VOMITING/STOMACH PAIN Other details as noted in HPI Constitutional: chills. denies: fever Eyes: denies: eye pain, eye discharge, vision change ENT: denies: ear pain, throat pain Respiratory: denies: cough, shortness of breath, wheezing Cardiovascular: denies: chest pain, palpitations Endocrine: no symptoms reported Gastrointestinal: abdominal pain, nausea, vomiting, other (yellow emesis). denies: diarrhea, hematemesis, melena, hematochezia Genitourinary: denies: urgency, dysuria Musculoskeletal: denies: back pain, joint swelling, arthralgia Skin: denies: rash, lesions Neurological: denies: headache, weakness, paresthesias Psychiatric: denies: anxiety, depression Hematological/Lymphatic: denies: easy bleeding, easy bruising ED Past Medical Hx - Past Medical History Hx Hypertension: Yes Hx Congestive Heart Failure: Yes Hx Diabetes: Yes Hx Deep Vein Thrombosis: Yes Hx GERD: Yes Hx Liver Disease: Yes Hx Renal Disease: Yes (Dialysis, tue, thur, sat) Hx Asthma: No Hx COPD: No Hx HIV: No Additional medical history: Anemia and renal disease, iron deficiency, secondary hypoparathyroidism of renal origin - Surgical History Additional Surgical History: left arm AV grafts. eyes - Social History Smoking Status: Never Smoker Substance Use Type: Alcohol - Medications Home Medications: Home Medications Medication Instructions Recorded Confirmed Last Taken Type Calcium Acetate [Phoslo] 667 mg PO TID 01/08/16 12/31/17 11/06/16 History B Complex 11/Folic/C/Biot/Zinc 1 each PO DAILY 11/07/16 12/31/17 11/06/16 History [Dialyvite with Zinc Tablet] NIFEdipine XL [Procardia Xl] 60 mg PO QDAY 11/07/16 12/31/17 11/06/16 History Glimepiride [Amaryl] 4 mg PO BID 01/03/17 12/31/17 Unknown History Lipase/Protease/Amylase [Jamaal Peralta 1 cap PO TID 01/03/17 12/31/17 Unknown History 24,000 Units Capsule] Omeprazole 40 mg PO QAM 01/03/17 12/31/17 Unknown History Jaamal Peralta 24,000 Units Capsule 1 cap PO 01/01/18 12/31/17 07:00 History 1 Folic Acid 1 mg PO DAILY 01/01/18 01/01/18 12/31/17 07:00 History Labetalol 200 mg PO TID 01/01/18 01/01/18 12/31/17 07:00 History 200 Loperamide 2 mg PO PRN 01/01/18 12/31/17 07:00 History 2 mg Vitamin D2 1 PO 1XW 01/01/18 12/29/17 07:00 History 1 hydrALAZINE 50 mg PO BID 01/01/18 01/01/18 12/31/17 07:00 History Famotidine [Pepcid] 20 mg PO BID #30 tablet 10/22/18 Unknown Rx Ondansetron [Zofran Odt] 4 mg PO Q6H PRN #7 tab.rapdis 10/22/18 Unknown Rx ED Physical Exam - General Limitations: Language Barrier General appearance: alert, in no apparent distress - Head Head exam: Present: atraumatic, normocephalic - Eye Eye exam: Present: normal appearance. Absent: scleral icterus - ENT ENT exam: Present: mucous membranes moist - Neck Neck exam: Present: normal inspection - Respiratory Respiratory exam: Present: normal lung sounds bilaterally. Absent: respiratory distress - Cardiovascular Cardiovascular Exam: Present: regular rate, normal rhythm. Absent: systolic murmur, diastolic murmur, rubs, gallop - GI/Abdominal GI/Abdominal exam: Present: soft, normal bowel sounds. Absent: distended, tenderness, guarding, rebound, rigid - Rectal Rectal exam: Present: deferred - Extremities Exam Extremities exam: Present: normal inspection - Back Exam Back exam: Present: normal inspection - Neurological Exam Neurological exam: Present: alert, oriented X3, CN II-XII intact. Absent: motor sensory deficit - Psychiatric Psychiatric exam: Present: normal affect, normal mood - Skin Skin exam: Present: warm, dry, intact, normal color. Absent: rash ED Course Vital Signs 10/22/18 10/22/18 10/22/18 11:17 12:07 12:12 Temperature 98.3 F Pulse Rate 90 91 H Respiratory 20 16 20 Rate Blood Pressure 144/53 Blood Pressure 153/57 [Left] O2 Sat by Pulse 97 98 98 Oximetry - Consultations Consultation #1: No vomiting and no abdominal. Vital signs are stable. Patient is not nauseated. He is appropriate for outpatient disposition. 10/22/18 13:27 10/22/18 13:27 ED Medical Decision Making - Lab Data Result diagrams: 10/22/18 12:18 10/22/18 12:18 Laboratory Results - last 24 hr 10/22/18 10/22/18 10/22/18 12:18 12:18 12:18 WBC 10.2 RBC 4.08 Hgb 13.1 Hct 39.3 MCV 96 H MCH 32 MCHC 33 RDW 17.8 H Plt Count 137 L Seg Neutrophils % Customer Quality Specialist Sodium 140 Potassium 4.1 Chloride 95.1 L Carbon Dioxide 30 Anion Gap 19 BUN 14 Creatinine 3.9 H Estimated GFR 16 BUN/Creatinine Ratio 4 Glucose 184 H Calcium 8.9 Total Bilirubin 0.50 AST 14 ALT 7 Alkaline Phosphatase 96 Total Protein 7.6 Albumin 4.6 Albumin/Globulin Ratio 1.5 Lipase 36 - EKG Data -: EKG Interpreted by Me EKG shows normal: sinus rhythm, axis, intervals, QRS complexes, ST-T waves Rate: normal - EKG Data Interpretation: no acute changes, LVH - Radiology Data ABDOMINAL SERIES: History: Upper abdominal pain. Supine and upright views of the abdomen and frontal view of the chest are submitted. There is gas mixed with moderate to large stool throughout the colon. There are no dilated loops of bowel or air-fluid levels. There is no free intraperitoneal gas. No pathologic calcifications are identified. A vascular stent overlies the left common iliac artery. Single view of the chest suggests advanced emphysematous changes in both lungs. Small pleural effusions or pleural thickening is also suspected, left greater than right. Heart size is within normal limits. IMPRESSION: Constipation. No acute process in the abdomen. Emphysema. Small pleural effusions versus pleural thickening. Critical care attestation.: If time is entered above; I have spent that time in minutes in the direct care of this critically ill patient, excluding procedure time. ED Disposition Clinical Impression: End-stage renal disease, Essential hypertension Abdominal pain Qualifiers: Abdominal location: epigastric Qualified Code(s): R10.13 - Epigastric pain Disposition: TO HOME OR SELFCARE Is pt being admited?: No Does the pt Need Aspirin: No Condition: Stable Instructions: Hypertension (ED), Chronic Kidney Disease (ED), Abdominal Pain (ED) Additional Instructions: Return to the emergency department any acute change or problem. Rx as directed. Return any significant vomiting or abdominal discomfort. Follow up with usual medical providers. Prescriptions: Famotidine [Pepcid] 20 mg PO BID #30 tablet Ondansetron [Zofran Odt] 4 mg PO Q6H PRN #7 tab.rapdis PRN Reason: nausea Time of Disposition: 13:29
[2018-10-22] MEDS ORDERED: ZOFRAN ODT PO ONE (12:12)
[2018-10-22] MEDS ORDERED: PROTONIX PO ONE (12:12)
[2018-10-22 12:32] LABS: Hematocrit 39.3 % (35.5-45.6); Hemoglobin 13.1 gm/dl (11.8-15.2); Mean Corpuscular HGB Conc 33 % (32-34); Mean Corpuscular Volume 96 fl (84-94); Platelet Count 137 K/mm3 (140-440); Red Blood Count 4.08 M/mm3 (3.65-5.03); Red Cell Distribution Width 17.8 % (13.2-15.2)
[2018-10-22 12:46] LABS: Albumin 4.6 g/dL (3.9-5); Calcium 8.9 mg/dL (8.4-10.2)
[2018-10-22 13:07] LABS: Band Neutrophils # (Manual) 0.1 K/mm3; Basophils % (Manual) 0 % (0.0-1.8); Eosinophils % (Manual) 0 % (0.0-4.3); Total Cells Counted 100
[2018-10-22 13:08] LABS: Anisocytosis 1+; Macrocytosis Few; Platelet Estimate Consistent w Auto
[2018-10-22 13:40] VITALS: BP 153/54
== END 2018-10-22 13:41 | disposition home or self-care (01) ==
LOC: ED 10:46
DX: E11.22 Type 2 diabetes mellitus with diabetic chronic kidney disease (principal); I13.2 Hypertensive heart and chronic kidney disease with heart failure and with stage 5 chronic kidney disease, or end stage renal disease; I50.9 Heart failure, unspecified; N18.6 End stage renal disease; Z99.2 Dependence on renal dialysis; K21.9 Gastro-esophageal reflux disease without esophagitis; Z86.718 Personal history of other venous thrombosis and embolism; Z86.2 Personal history of diseases of the blood and blood-forming organs and certain disorders involving the immune mechanism; Z79.899 Other long term (current) drug therapy
CPT/HCPCS: 36415; 74022; 80053; 83690; 85007; 85025; 93005; 93010; Q0162

== ENCOUNTER 2019-02-13 07:01 | Emergency (ER) | payer MEDICARE ==
[2019-02-13] MEDS ORDERED: ASPIRIN PO ONE (07:24)
--- NOTE | 2019-02-13 08:14 | XRay Report ---
AP CHEST : 02/13/19 07:01:00 CLINICAL: Chest pain. COMPARISON:01/16/19 FINDINGS: Borderline large heart and prominent central pulmonary vessels. No airspace disease. Blunting of the left costophrenic angle is unchanged compared to the last exam. Bibasal streaky lung opacities are unchanged. The bones and soft tissues are unremarkable. IMPRESSION: No acute cardiopulmonary process.
[2019-02-13] MEDS ORDERED: PROTONIX PO ONE (08:20)
[2019-02-13] MEDS ORDERED: ALUM-MAG HYDROX-SIMETH 200-200-20MG/5ML PO ONE (08:20)
[2019-02-13 08:38] LABS: BUN/Creatinine Ratio 5; Blood Urea Nitrogen 26 mg/dL (9-20); Calcium 8.7 mg/dL (8.4-10.2); Hemolysis Index 14
[2019-02-13 08:52] LABS: Basophils % (Auto) 1.1 % (0.0-1.8); Eosinophils # (Auto) 0.3 K/mm3 (0.0-0.4); Eosinophils % (Auto) 8.2 % (0.0-4.3); Hematocrit 33.3 % (35.5-45.6); Hemoglobin 11.5 gm/dl (11.8-15.2); Lymphocytes # (Auto) 0.4 K/mm3 (1.2-5.4); Lymphocytes % (Auto) 9.4 % (13.4-35.0); Mean Corpuscular HGB Conc 35 % (32-34); Mean Corpuscular Volume 95 fl (84-94); Monocytes # (Auto) 0.4 K/mm3 (0.0-0.8); Monocytes % (Auto) 8.5 % (0.0-7.3); Platelet Count 121 K/mm3 (140-440); Red Cell Distribution Width 17.9 % (13.2-15.2)
--- NOTE | 2019-02-13 12:47 | Emergency Department Report ---
ED Chest Pain HPI - General Chief Complaint: Chest Pain Stated Complaint: GAS Time Seen by Provider: 02/13/19 08:01 Source: patient Mode of arrival: Wheelchair Limitations: No Limitations - History of Present Illness Initial Comments: This is a 63-year-old male who presents to the emergency department with acute burping and a complaint of gas. He is comes to the emergency department on that basis before. He does have a history of non-obstructive coronary artery disease. Medical management has been previously recommended. He has a history of hypertension diabetes and end-stage renal failure. He did have an hour and a half at dialysis today. He does not complain of shortness of breath, nausea, sweating, pleuritic pain or radiating pain. He is actually not complaining of chest pain at all at the time of my encounter just "gas". MD Complaint: chest pain Onset: during rest Pain Location: epigastric Pain Radiation: none Severity: moderate Severity scale (0 -10): 5 Quality: other Consistency: intermittent Improves With: nothing Worsens With: nothing re: denies: nausea, vomting, diaphoresis, dyspnea, sense of impending doom Other Symptoms: denies: cough, fever, syncope Treatments Prior to Arrival: none - Related Data Home Medications Medication Instructions Recorded Confirmed Last Taken B Complex 11/Folic/C/Biot/Zinc 1 each PO DAILY 11/07/16 02/13/19 02/12/19 [Dialyvite with Zinc Tablet] NIFEdipine XL [Procardia Xl] 60 mg PO BID 11/07/16 02/13/19 02/13/19 Lipase/Protease/Amylase [Jamaal Peralta 1 cap PO TID 01/03/17 02/13/19 02/12/19 24,000 Units Capsule] Omeprazole 40 mg PO BID 01/03/17 02/13/19 02/12/19 Labetalol [Labetalol 200mg TAB] 200 mg PO QID 02/13/19 02/13/19 02/13/19 cloNIDine [Catapres] 0.2 mg PO TID 02/13/19 02/13/19 02/13/19 hydrALAZINE [Apresoline TAB] 100 mg PO TID 02/13/19 02/13/19 02/13/19 Previous Rx's Medication Instructions Recorded Last Taken Type Lansoprazole [Prevacid] 15 mg PO BID #60 cap 02/13/19 Unknown Rx Allergies Allergy/AdvReac Type Severity Reaction Status Date / Time No Known Allergies Allergy Verified 01/16/19 10:10 Heart Score - HEART Score History: Slightly suspicious EKG: Normal Age: 45-65 Risk factors: > 3 risk factors or hx of atherosclerotic disease Troponin: < normal limit HEART Score: 3 - Critical Actions Critical Actions: 0-3 pts:0.9-1.7%risk of adverse cardiac event.Candidate for discharge ED Review of Systems ROS: Stated complaint: GAS Other details as noted in HPI Constitutional: denies: chills, fever Eyes: denies: eye pain, eye discharge, vision change ENT: denies: ear pain, throat pain Respiratory: denies: cough, shortness of breath, wheezing Cardiovascular: denies: chest pain, palpitations Endocrine: no symptoms reported Gastrointestinal: as per HPI. denies: abdominal pain, nausea, diarrhea Genitourinary: denies: urgency, dysuria Musculoskeletal: denies: back pain, joint swelling, arthralgia Skin: denies: rash, lesions Neurological: denies: headache, weakness, paresthesias Psychiatric: denies: anxiety, depression Hematological/Lymphatic: denies: easy bleeding, easy bruising ED Past Medical Hx - Past Medical History Hx Hypertension: Yes Hx Congestive Heart Failure: Yes Hx Diabetes: Yes Hx Deep Vein Thrombosis: Yes Hx GERD: Yes Hx Liver Disease: Yes Hx Renal Disease: Yes (Dialysis, tue, thur, sat) Hx Asthma: No Hx COPD: No Hx HIV: No Additional medical history: Anemia and renal disease, iron deficiency, secondary hypoparathyroidism of renal origin - Surgical History Additional Surgical History: left arm AV grafts. eyes - Social History Smoking Status: Never Smoker Substance Use Type: None - Medications Home Medications: Home Medications Medication Instructions Recorded Confirmed Last Taken Type B Complex 11/Folic/C/Biot/Zinc 1 each PO DAILY 11/07/16 02/13/19 02/12/19 History [Dialyvite with Zinc Tablet] NIFEdipine XL [Procardia Xl] 60 mg PO BID 11/07/16 02/13/19 02/13/19 History Lipase/Protease/Amylase [Creon Dr 1 cap PO TID 01/03/17 02/13/19 02/12/19 History 24,000 Units Capsule] Omeprazole 40 mg PO BID 01/03/17 02/13/19 02/12/19 History Labetalol [Labetalol 200mg TAB] 200 mg PO QID 02/13/19 02/13/19 02/13/19 History Lansoprazole [Prevacid] 15 mg PO BID #60 cap 02/13/19 Unknown Rx cloNIDine [Catapres] 0.2 mg PO TID 02/13/19 02/13/19 02/13/19 History hydrALAZINE [Apresoline TAB] 100 mg PO TID 02/13/19 02/13/19 02/13/19 History ED Physical Exam - General Limitations: No Limitations General appearance: alert, in no apparent distress - Head Head exam: Present: atraumatic, normocephalic - Eye Eye exam: Present: normal appearance. Absent: scleral icterus - ENT ENT exam: Present: mucous membranes moist - Neck Neck exam: Present: normal inspection - Respiratory Respiratory exam: Present: normal lung sounds bilaterally. Absent: respiratory distress - Cardiovascular Cardiovascular Exam: Present: regular rate, normal rhythm. Absent: systolic murmur, diastolic murmur, rubs, gallop - GI/Abdominal GI/Abdominal exam: Present: soft, normal bowel sounds. Absent: distended, tenderness, guarding, rebound, rigid - Rectal Rectal exam: Present: deferred - Extremities Exam Extremities exam: Present: normal inspection - Back Exam Back exam: Present: normal inspection - Neurological Exam Neurological exam: Present: alert, oriented X3 - Psychiatric Psychiatric exam: Present: normal affect, normal mood - Skin Skin exam: Present: warm, dry, intact, normal color. Absent: rash ED Course Vital Signs 02/13/19 02/13/19 02/13/19 07:23 07:37 07:39 Temperature 98.6 F Pulse Rate 61 64 63 Respiratory 20 12 16 Rate Blood Pressure 138/63 Blood Pressure 155/53 [Left] O2 Sat by Pulse 100 100 98 Oximetry 02/13/19 02/13/19 02/13/19 08:00 09:01 10:00 Temperature Pulse Rate 65 Respiratory 12 Rate Blood Pressure 145/58 147/59 148/52 Blood Pressure [Left] O2 Sat by Pulse 94 97 95 Oximetry 02/13/19 11:00 Temperature Pulse Rate Respiratory Rate Blood Pressure 140/54 Blood Pressure [Left] O2 Sat by Pulse 97 Oximetry - Reevaluation(s) Reevaluation #1: Main stable emergency department. Patient is appropriate for outpatient management. 02/13/19 12:45 ROEL score - Roel Score Age > 65: (0) No Aspirin use within the Past 7 Days: (0) No 3 or more CAD Risk Factors: (1) Yes 2 or more Angina events in past 24 hrs: (0) No Known CAD with more than 50% Stenosis: (0) No Elevated Cardiac Markers: (0) No ST Deviation Greater than 0.5mm: (0) No ROEL Score: 1 ED Medical Decision Making - Lab Data Result diagrams: 02/13/19 08:10 02/13/19 08:10 Laboratory Results - last 24 hr 02/13/19 02/13/19 02/13/19 08:10 08:10 10:22 WBC 4.1 L RBC 3.50 L Hgb 11.5 L Hct 33.3 L MCV 95 H MCH 33 H MCHC 35 H RDW 17.9 H Plt Count 121 L Lymph % (Auto) 9.4 L [place] % (Auto) 8.5 H Eos % (Auto) 8.2 H Baso % (Auto) 1.1 Lymph # 0.4 L [place] # 0.4 Eos # 0.3 Baso # 0.0 Seg Neutrophils % 72.8 H Seg Neutrophils # 3.0 Sodium 133 L Potassium 4.3 Chloride 89.0 L Carbon Dioxide 29 Anion Gap 19 BUN 26 H Creatinine 4.9 H Estimated GFR 12 BUN/Creatinine Ratio 5 Glucose 132 H Calcium 8.7 Troponin T < 0.010 < 0.010 - EKG Data EKG shows normal: sinus rhythm, axis, intervals, QRS complexes, ST-T waves Rate: normal - EKG Data Interpretation: other (LVH with early repolarization. No cervical changes.) - Radiology Data Radiology results: report reviewed (no acute process) Critical care attestation.: If time is entered above; I have spent that time in minutes in the direct care of this critically ill patient, excluding procedure time. 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 Return any acute change her symptoms as needed. Prescriptions: Lansoprazole [Prevacid] 15 mg PO BID #60 cap Referrals: RODRICK BANGURA MD [Primary Care Provider] - 3-5 Days Time of Disposition: 12:49
[2019-02-13 13:27] VITALS: BP 146/56
== END 2019-02-13 13:27 | disposition home or self-care (01) ==
LOC: ED 07:01
DX: K29.70 Gastritis, unspecified, without bleeding (principal); K21.9 Gastro-esophageal reflux disease without esophagitis; E11.69 Type 2 diabetes mellitus with other specified complication; E11.22 Type 2 diabetes mellitus with diabetic chronic kidney disease; I13.2 Hypertensive heart and chronic kidney disease with heart failure and with stage 5 chronic kidney disease, or end stage renal disease; I50.9 Heart failure, unspecified; N18.6 End stage renal disease; Z99.2 Dependence on renal dialysis; Z86.718 Personal history of other venous thrombosis and embolism
CPT/HCPCS: 36415; 71045; 80048; 84484; 85025; 93005; 93010

== ENCOUNTER 2019-07-01 06:27 | Observation (INO) | payer MEDICARE ==
[2019-07-01] MEDS ORDERED: PANTOPRAZOLE 40 MG INJ IV ONE (06:56)
[2019-07-01] MEDS ORDERED: ONDANSETRON 4 MG/2 ML INJ IV ONE (06:56)
[2019-07-01] MEDS ORDERED: MORPHINE 2 MG/1 ML INJ IV ONE (06:56)
--- NOTE | 2019-07-01 07:14 | XRay Report ---
CHEST 1 VIEW INDICATION: MAIN: Abdominal Pain, sob. Dialysis patient with history of anemia COMPARISON: 06/21/2019 FINDINGS: Support devices: None. Heart: Within normal limits Lungs/Pleura: Small bilateral layering pleural effusions and patchy bibasilar airspace disease. Additional findings: None. IMPRESSION: 1. Pulmonary findings as above. Signer Name: Neftaly Palafox MD Signed: 07/01/2019 7:10 AM Workstation Name: [id number]
[2019-07-01] MEDS ORDERED: PIPERACILLIN/TAZOBACTAM 3.375 3.375 GM/50 ML BAG IV NR (07:30)
[2019-07-01 07:32] LABS: Basophils # (Auto) 0.1 K/mm3 (0.0-0.1); Basophils % (Auto) 0.6 % (0.0-1.8); Eosinophils # (Auto) 0.2 K/mm3 (0.0-0.4); Eosinophils % (Auto) 1.6 % (0.0-4.3); Hemoglobin 10.5 gm/dl (11.8-15.2); Lymphocytes # (Auto) 0.4 K/mm3 (1.2-5.4); Lymphocytes % (Auto) 4.3 % (13.4-35.0); Mean Corpuscular HGB Conc 34 % (32-34); Mean Corpuscular Volume 92 fl (84-94); Monocytes # (Auto) 0.4 K/mm3 (0.0-0.8); Monocytes % (Auto) 4.1 % (0.0-7.3); Platelet Count 147 K/mm3 (140-440); Red Blood Count 3.38 M/mm3 (3.65-5.03); Red Cell Distribution Width 17.1 % (13.2-15.2)
[2019-07-01 07:38] LABS: INR 1.11 (0.87-1.13)
[2019-07-01 07:48] LABS: Alanine Aminotransferase 14 units/L (7-56); Albumin 4.7 g/dL (3.9-5)
[2019-07-01 07:54] LABS: Calcium 8.8 mg/dL (8.4-10.2)
[2019-07-01 07:56] LABS: Bilirubin,Direct < 0.2 mg/dL (0-0.2)
--- NOTE | 2019-07-01 07:58 | Emergency Department Report ---
ED Abdominal Pain HPI - General Chief Complaint: Abdominal Pain Stated Complaint: ABD PAIN/NO BM X 4 DAYS Time Seen by Provider: 07/01/19 06:48 Source: patient, EMS Mode of arrival: Stretcher Limitations: Language Barrier - History of Present Illness Initial Comments: This is a 63-year-old man who was sent by his dialysis clinic for evaluation of lower abdominal pain. He was not dialyzed. He seems to be telling me that he missed dialysis last Sunday but once on and Sunday. He states he has not had a bowel movement for 4 days. He developed lower abdominal pain which is somewhat intermittent since yesterday. He denies fever or chills. He actually denies previous similar abdominal pain. Of note is that he seemed to have an media center specialist extensive GI evaluation on his last hospitalization. He was thought to have gastroparesis and possibly chronic cholecystitis. This time he is not vomiting as he was during his prior admission. He does not complain of nausea either. His pain does not radiate. He denies history of previous abdominal surgery. Her last month's discharge summary and GI consultation: Assessment and Plan - Patient Problems (1) End-stage renal disease Current Visit: Yes Status: Chronic Plan to address problem: End stage renal disease - continue HD TTS -access : left arm AVF. (2) Abdominal pain Current Visit: Yes Status: Acute Qualifiers: Abdominal location: epigastric Qualified Code(s): R10.13 - Epigastric pain Plan to address problem: abdominal pain /nausea/vomitting s/p EGD with erosive esophagitis. -associated history of gastoparesis. (3) Hypotension Current Visit: No Status: Acute Qualifiers: Hypotension type: unspecified hypotension type Qualified Code(s): I95.9 - Hypotension, unspecified Plan to address problem: hypotension -hold bp meds if bp less than 140/90 monitor blood pressure. (4) Diabetes mellitus, type 2 Current Visit: No Status: Chronic Plan to address problem: Dm type II with complications Ensure medications monitor fingersticks. MD Complaint: abdominal pain -: Gradual, hour(s) Location: LLQ, RLQ Radiation: none Severity: moderate Quality: aching Consistency: intermittent Improves With: nothing Worsens With: nothing Context: other (recent admission for vomiting) Associated Symptoms: denies other symptoms, constipation - Related Data Previous Rx's Medication Instructions Recorded Last Taken Type B Complex 11/Folic/C/Biot/Zinc 1 each PO DAILY #30 06/22/19 Unknown Rx [Dialyvite with Zinc Tablet] Labetalol [Labetalol 200mg TAB] 200 mg PO QID #120 06/22/19 Unknown Rx Lipase/Protease/Amylase [Creon Dr 1 cap PO TID #90 06/22/19 Unknown Rx 24,000 Units Capsule] NIFEdipine XL [Procardia Xl] 60 mg PO BID #60 06/22/19 Unknown Rx Omeprazole 40 mg PO BID #60 06/22/19 Unknown Rx cloNIDine [Catapres] 0.2 mg PO TID #90 06/22/19 Unknown Rx hydrALAZINE [Apresoline TAB] 100 mg PO TID #90 tab 06/22/19 Unknown Rx oxyCODONE /ACETAMINOPHEN [Percocet 1 tab PO Q4HR #6 tab 06/22/19 Unknown Rx 5/325] Dicyclomine [Bentyl] 10 mg PO TID 14 Days capsule 06/25/19 Unknown Rx Sucralfate [Carafate] 1 gm PO ACHS 30 Days tablet 06/25/19 Unknown Rx Allergies Allergy/AdvReac Type Severity Reaction Status Date / Time No Known Allergies Allergy Verified 01/16/19 10:10 ED Review of Systems ROS: Stated complaint: ABD PAIN/NO BM X 4 DAYS Other details as noted in HPI Constitutional: denies: chills, fever Eyes: denies: eye pain, eye discharge, vision change ENT: denies: ear pain, throat pain Respiratory: denies: cough, shortness of breath, wheezing Cardiovascular: denies: chest pain, palpitations Endocrine: no symptoms reported Gastrointestinal: abdominal pain, constipation (no bowel movement for 4 days). denies: nausea, diarrhea Genitourinary: denies: urgency, dysuria Musculoskeletal: denies: back pain, joint swelling, arthralgia Skin: denies: rash, lesions Neurological: denies: headache, weakness, paresthesias Psychiatric: denies: anxiety, depression Hematological/Lymphatic: denies: easy bleeding, easy bruising ED Past Medical Hx - Past Medical History Hx Hypertension: Yes Hx Congestive Heart Failure: Yes Hx Diabetes: Yes Hx Deep Vein Thrombosis: Yes Hx GERD: Yes Hx Liver Disease: No Hx Renal Disease: Yes (ESRD, dialysis ) Hx Asthma: No Hx COPD: No Hx HIV: No Additional medical history: Anemia and renal disease, iron deficiency, secondary hypoparathyroidism of renal origin - Surgical History Additional Surgical History: left arm AV grafts. eyes - Social History Smoking Status: Never Smoker - Medications Home Medications: Home Medications Medication Instructions Recorded Confirmed Last Taken Type B Complex 11/Folic/C/Biot/Zinc 1 each PO DAILY #30 06/22/19 Unknown Rx [Dialyvite with Zinc Tablet] Labetalol [Labetalol 200mg TAB] 200 mg PO QID #120 06/22/19 Unknown Rx Lipase/Protease/Amylase [Creon Dr 1 cap PO TID #90 06/22/19 Unknown Rx 24,000 Units Capsule] NIFEdipine XL [Procardia Xl] 60 mg PO BID #60 06/22/19 Unknown Rx Omeprazole 40 mg PO BID #60 06/22/19 Unknown Rx cloNIDine [Catapres] 0.2 mg PO TID #90 06/22/19 Unknown Rx hydrALAZINE [Apresoline TAB] 100 mg PO TID #90 tab 06/22/19 Unknown Rx oxyCODONE /ACETAMINOPHEN [Percocet 1 tab PO Q4HR #6 tab 06/22/19 Unknown Rx 5/325] Dicyclomine [Bentyl] 10 mg PO TID 14 Days capsule 06/25/19 Unknown Rx Sucralfate [Carafate] 1 gm PO ACHS 30 Days tablet 06/25/19 Unknown Rx ED Physical Exam - General Limitations: Other (history obtained in Greek) General appearance: alert, in no apparent distress - Head Head exam: Present: atraumatic, normocephalic - Eye Eye exam: Present: normal appearance. Absent: scleral icterus - ENT ENT exam: Present: mucous membranes moist - Neck Neck exam: Present: normal inspection - Respiratory Respiratory exam: Present: normal lung sounds bilaterally. Absent: respiratory distress - Cardiovascular Cardiovascular Exam: Present: regular rate, normal rhythm. Absent: systolic murmur, diastolic murmur, rubs, gallop - GI/Abdominal GI/Abdominal exam: Present: soft, tenderness (apparently very mild lower quadrant), normal bowel sounds. Absent: distended, guarding, rebound, rigid, organomegaly, mass, bruit, pulsatile mass, hernia - Rectal Rectal exam: Present: deferred - Extremities Exam Extremities exam: Present: normal inspection - Back Exam Back exam: Present: normal inspection - Neurological Exam Neurological exam: Present: alert, oriented X3, CN II-XII intact. Absent: motor sensory deficit - Psychiatric Psychiatric exam: Present: normal affect, normal mood - Skin Skin exam: Present: warm, dry, intact, normal color. Absent: rash ED Course Vital Signs 07/01/19 07/01/19 07/01/19 06:43 06:49 08:00 Temperature 98.0 F 97.6 F Pulse Rate 70 71 Respiratory 18 18 16 Rate Blood Pressure 105/36 Blood Pressure 103/35 [Right] O2 Sat by Pulse 97 94 Oximetry 07/01/19 09:34 Temperature Pulse Rate 76 Respiratory 14 Rate Blood Pressure Blood Pressure 110/53 [Right] O2 Sat by Pulse 94 Oximetry - Reevaluation(s) Reevaluation #1: Discussed with Dr. Riley. She agrees with temporizing via medical treatment of hyperkalemia. She will entered dialysis orders. We'll complete the patient's CT exam and have been admitted to the medical service for further care and evaluation. 07/01/19 10:40 Reevaluation #2: Further care per hospitalist staff. Other appropriate antibiotics for lung consolidation per their choice. 07/01/19 11:16 ED Medical Decision Making - Lab Data Result diagrams: 07/01/19 07:03 07/01/19 07:03 Laboratory Results - last 24 hr 07/01/19 07/01/19 07/01/19 07:03 07:03 07:03 WBC 9.3 RBC 3.38 L Hgb 10.5 L Hct 31.0 L MCV 92 MCH 31 MCHC 34 RDW 17.1 H Plt Count 147 Lymph % (Auto) 4.3 L [place] % (Auto) 4.1 Eos % (Auto) 1.6 Baso % (Auto) 0.6 Lymph # 0.4 L [place] # 0.4 Eos # 0.2 Baso # 0.1 Seg Neutrophils % 89.4 H Seg Neutrophils # 8.3 H PT 14.2 INR 1.11 Sodium 139 Potassium 6.3 H* Chloride 94.2 L Carbon Dioxide 22 Anion Gap 29 BUN 91 H Creatinine 7.7 H Estimated GFR 7 BUN/Creatinine Ratio 12 Glucose 205 H Lactic Acid Calcium 8.8 Phosphorus Magnesium Total Bilirubin Direct Bilirubin Indirect Bilirubin AST ALT Alkaline Phosphatase Total Protein Albumin Albumin/Globulin Ratio Lipase 07/01/19 07/01/19 07/01/19 07:03 07:03 07:03 WBC RBC Hgb Hct MCV MCH MCHC RDW Plt Count Lymph % (Auto) [place] % (Auto) Eos % (Auto) Baso % (Auto) Lymph # [place] # Eos # Baso # Seg Neutrophils % Seg Neutrophils # PT INR Sodium Potassium Chloride Carbon Dioxide Anion Gap BUN Creatinine Estimated GFR BUN/Creatinine Ratio Glucose Lactic Acid 2.00 Calcium Phosphorus 2.10 L Magnesium 2.40 H Total Bilirubin 0.60 Direct Bilirubin < 0.2 Indirect Bilirubin 0.4 AST 25 ALT 14 Alkaline Phosphatase 116 Total Protein 7.2 Albumin 4.7 Albumin/Globulin Ratio 1.9 Lipase 51 Laboratory Results - last 24 hr 07/01/19 07/01/19 07/01/19 07:03 07:03 07:03 WBC 9.3 RBC 3.38 L Hgb 10.5 L Hct 31.0 L MCV 92 MCH 31 MCHC 34 RDW 17.1 H Plt Count 147 Lymph % (Auto) 4.3 L [place] % (Auto) 4.1 Eos % (Auto) 1.6 Baso % (Auto) 0.6 Lymph # 0.4 L [place] # 0.4 Eos # 0.2 Baso # 0.1 Seg Neutrophils % 89.4 H Seg Neutrophils # 8.3 H PT 14.2 INR 1.11 Sodium 139 Potassium 6.3 H* Chloride 94.2 L Carbon Dioxide 22 Anion Gap 29 BUN 91 H Creatinine 7.7 H Estimated GFR 7 BUN/Creatinine Ratio 12 Glucose 205 H Lactic Acid Calcium 8.8 Phosphorus Magnesium Total Bilirubin Direct Bilirubin Indirect Bilirubin AST ALT Alkaline Phosphatase Total Protein Albumin Albumin/Globulin Ratio Lipase Blood Type Antibody Screen 07/01/19 07/01/19 07/01/19 07:03 07:03 07:03 WBC RBC Hgb Hct MCV MCH MCHC RDW Plt Count Lymph % (Auto) [place] % (Auto) Eos % (Auto) Baso % (Auto) Lymph # [place] # Eos # Baso # Seg Neutrophils % Seg Neutrophils # PT INR Sodium Potassium Chloride Carbon Dioxide Anion Gap BUN Creatinine Estimated GFR BUN/Creatinine Ratio Glucose Lactic Acid 2.00 Calcium Phosphorus 2.10 L Magnesium 2.40 H Total Bilirubin 0.60 Direct Bilirubin < 0.2 Indirect Bilirubin 0.4 AST 25 ALT 14 Alkaline Phosphatase 116 Total Protein 7.2 Albumin 4.7 Albumin/Globulin Ratio 1.9 Lipase 51 Blood Type Antibody Screen 07/01/19 07:03 WBC RBC Hgb Hct MCV MCH MCHC RDW Plt Count Lymph % (Auto) [place] % (Auto) Eos % (Auto) Baso % (Auto) Lymph # [place] # Eos # Baso # Seg Neutrophils % Seg Neutrophils # PT INR Sodium Potassium Chloride Carbon Dioxide Anion Gap BUN Creatinine Estimated GFR BUN/Creatinine Ratio Glucose Lactic Acid Calcium Phosphorus Magnesium Total Bilirubin Direct Bilirubin Indirect Bilirubin AST ALT Alkaline Phosphatase Total Protein Albumin Albumin/Globulin Ratio Lipase Blood Type A POSITIVE Antibody Screen Negative - EKG Data -: EKG Interpreted by In EKG shows normal: sinus rhythm Rate: normal - EKG Data Interpretation: other (T waves are a bit prominent but not severely acute T is somewhat prolonged but not extremely. The QRS complexes normal in duration.) - Radiology Data Radiology results: report reviewed, image reviewed (CT of the abdomen shows increased stool in the rectum. Radiologist does not mention impaction. Bilateral airspace left radial than right consolidation. No evidence of intra- abdominal infection) Heart: Within normal limits Lungs/Pleura: Small bilateral layering pleural effusions and patchy bibasilar airspace disease. Additional findings: None. IMPRESSION: 1. Pulmonary findings as above. Critical care attestation.: If time is entered above; I have spent that time in minutes in the direct care of this critically ill patient, excluding procedure time. ED Disposition Clinical Impression: Lung consolidation, End-stage renal disease needing dialysis, Hyperkalemia Disposition: OP ADMIT IP TO THIS HOSP Is pt being admited?: Yes Does the pt Need Aspirin: Yes Condition: Stable Referrals: RODRICK BANGURA MD [Primary Care Provider] - 3-5 Days Time of Disposition: 1119
[2019-07-01] MEDS ORDERED: INSULIN REGULAR, HUMAN 100 UNITS/1 ML IV ONE (08:02)
[2019-07-01] MEDS ORDERED: DEXTROSE 50% IN WATER (25GM) 50 ML SYRINGE IV ONE (08:02)
[2019-07-01] MEDS ORDERED: SODIUM BICARB 8.4% 50 MEQ/50 ML SYRINGE IV ONE (08:40)
[2019-07-01] MEDS ORDERED: SODIUM CHLORIDE 0.9% 100 ML IV PRN (08:46)
--- NOTE | 2019-07-01 11:05 | Cat Scan Report ---
CT abdomen pelvis wo con INDICATION: Abdominal Pain. TECHNIQUE: All CT scans at this location are performed using the following dose modulation technique: Automated exposure control. Helical slices were obtained through the abdomen and pelvis. No contrast is intrave nous administered. Oral contrast is administered. COMPARISON: CT scan dated 06/21/2019 and 12/31/2017 FINDINGS: Abdomen: There is airspace consolidation in the left lung base. There is by basilar pleural thickenin g and small bilateral pleural effusions. Left appears to be at least partially loculated. There is a low-density lesion in the right lobe of the liver measures approximately 18 mm and appears unchanged. Spleen, pancreas, adrenal glands, and kidneys appear unchanged. The kidneys are atrophic. Atherosclerotic calcifications are noted aorta, renal arteries, splenic artery and iliac arteries. T here is a stent in the left common iliac artery. The gallbladder is grossly unremarkable. There is no obstruction, inflammation, or free air. There is a small hiatal hernia there is evidence of gastroesophageal reflux. There is a moderate amount stool in colon. Pelvis: Appendix is unremarkable. Vascular calcifications are noted. There is no inflammatory change or obstr uction. On review of bone windows, no acute osseous abnormalities are seen. IMPRESSION: 1. There is been no significant interval change. There is airspace opacity noted in the lung bases left greater than right. There are small bilateral effusions. Left effusion appears to be partially loculated. There is pleural thickening in the lung b ases. There is a title hernia with evidence of gastroesophageal reflux. There is atherosclerotic disease which appears unchanged. There is no obstruction, inflammation, or free air. Signer Name: Anthony Herr MD Signed: 07/01/2019 11:01 AM Workstation Name: [id number]
[2019-07-01] MEDS ORDERED: ASPIRIN 81 MG TAB CHEW PO ONE (11:20)
[2019-07-01] MEDS ORDERED: ALBUTEROL 2.5 MG/3 ML NEBU IH PRN (11:26)
[2019-07-01] MEDS ORDERED: ONDANSETRON 4 MG/2 ML INJ IV PRN (11:26)
[2019-07-01] MEDS ORDERED: ACETAMINOPHEN 325 MG TAB PO PRN (11:26)
--- NOTE | 2019-07-01 11:26 | History and Physical Report ---
History of Present Illness Chief complaint: Im coughing, im short of breath, and i need dialysis History of present illness: 63 YO Male with CAD S/P Stent Placement, DM, ESRD on HD(T,R,Sa) last dialyzed on , HLD presents to ED for evaluation. Pt states that he has experienced shortness and 3 episodes of productive cough with yellow sputum, as well as feeling a "little warm" over the past 2 days. Pt presented to his dialysis center today for his regularly scheduled dialysis and was found to be hypotensive. EMS notified, and upon arrival the patient found to be in distress and transported to [facility]. Pt seen and evaluated in ED and found to have LLL Pneumonia, ESRD, Hypervolemia. Pt admitted to medical floor. Nephrology consulted in ED. PT denies runny nose, chest pain, palpitations, trauma, skin rash, or recent ill contacts. Prior admission on 06/24/19 reviewed. All listed medication reconciled at time of admission. Past History Past Medical History: other (see hpi) Past Surgical History: Other (dialysis access) Social history: . denies: smoking, alcohol abuse, prescription drug abuse Family history: diabetes, hypertension Medications and Allergies Allergies Allergy/AdvReac Type Severity Reaction Status Date / Time No Known Allergies Allergy Verified 01/16/19 10:10 Home Medications Medication Instructions Recorded Confirmed Last Taken Type B Complex 11/Folic/C/Biot/Zinc 1 each PO DAILY #30 06/22/19 Unknown Rx [Dialyvite with Zinc Tablet] Labetalol [Labetalol 200mg TAB] 200 mg PO QID #120 06/22/19 Unknown Rx Lipase/Protease/Amylase [Creon Dr 1 cap PO TID #90 06/22/19 Unknown Rx 24,000 Units Capsule] NIFEdipine XL [Procardia Xl] 60 mg PO BID #60 06/22/19 Unknown Rx Omeprazole 40 mg PO BID #60 06/22/19 Unknown Rx cloNIDine [Catapres] 0.2 mg PO TID #90 06/22/19 Unknown Rx hydrALAZINE [Apresoline TAB] 100 mg PO TID #90 tab 06/22/19 Unknown Rx oxyCODONE /ACETAMINOPHEN [Percocet 1 tab PO Q4HR #6 tab 06/22/19 Unknown Rx 5/325] Dicyclomine [Bentyl] 10 mg PO TID 14 Days capsule 06/25/19 Unknown Rx Sucralfate [Carafate] 1 gm PO ACHS 30 Days tablet 06/25/19 Unknown Rx Active Meds: Active Medications Piperacillin Sod/Tazobactam Sod (Zosyn/Ns 3.375gm/50ml) 3.375 gm in 50 mls @ 100 mls/hr IV NOW NR; Protocol Stop: 07/01/19 13:00 Last Admin: 07/01/19 09:21 Dose: 100 mls/hr Documented by: Sodium Chloride (Nacl 0.9%) 100 mls @ 999 mls/hr IV TAY PRN PRN Reason: Hypotension Review of Systems Constitutional: no weight loss, no weight gain Ears, nose, mouth and throat: no ear pain, no ear discharge, no nasal congestion, no sinus pressure Cardiovascular: no chest pain, no orthopnea, no rapid/irregular heart beat, no syncope Respiratory: cough, no excessive sputum, no hemoptysis Gastrointestinal: no nausea, no vomiting, no constipation, no change in bowel habits Genitourinary Male: no flank pain, no urinary frequency, no nocturia, no incontinence Rectal: no pain, no incontinence, no bleeding Musculoskeletal: no neck stiffness, no shooting arm pain, no arm numbness/tingli ng, no shooting leg pain Integumentary: no rash, no sores, no jaundice Neurological: no transient paralysis, no paralysis, no parathesias, no numbness, no tingling, no seizures Psychiatric: no sleep disturbances, no hypersomnia Endocrine: no heat intolerance, no polydipsia, no polyuria Hematologic/Lymphatic: no easy bruising, no easy bleeding, no lymphadenopathy, no lymphedema Allergic/Immunologic: no urticaria, no allergic rhinitis, no persistent infections, no anaphylaxis, no angioedema Exam - Constitutional Vitals: Temp Pulse Resp BP Pulse Ox 97.6 F 76 14 105/57 92 07/01/19 08:00 07/01/19 11:00 07/01/19 11:00 07/01/19 11:00 07/01/19 11:00 General appearance: Present: mild distress - EENT Eyes: Present: PERRL ENT: hearing intact, clear oral mucosa - Neck Neck: Present: supple, normal ROM - Respiratory Respiratory effort: normal Respiratory: left: diminished - Cardiovascular Heart Sounds: Present: S1 & S2. Absent: rub, click - Extremities Extremities: pulses symmetrical, No edema Peripheral Pulses: within normal limits - Abdominal General gastrointestinal: Present: soft, non-tender, non-distended, normal bowel sounds Male genitourinary: Present: normal - Integumentary Integumentary: Present: clear, warm, dry - Musculoskeletal Musculoskeletal: gait normal, strength equal bilaterally - Psychiatric Psychiatric: appropriate mood/affect, intact judgment & insight - Neurologic Neurologic: CNII-XII intact, moves all extremities Results - Labs CBC & Chem 7: 07/01/19 07:03 07/01/19 07:03 Labs: Abnormal lab results 07/01/19 07/01/19 07/01/19 Range/Units 07:03 07:03 07:03 RBC 3.38 L (3.65-5.03) M/mm3 Hgb 10.5 L (11.8-15.2) gm/dl Hct 31.0 L (35.5-45.6) % RDW 17.1 H (13.2-15.2) % Lymph % (Auto) 4.3 L (13.4-35.0) % Lymph # 0.4 L (1.2-5.4) K/mm3 Seg Neutrophils % 89.4 H (40.0-70.0) % Seg Neutrophils # 8.3 H (1.8-7.7) K/mm3 Potassium 6.3 H* (3.6-5.0) mmol/L Chloride 94.2 L (98-107) mmol/L BUN 91 H (9-20) mg/dL Creatinine 7.7 H (0.8-1.5) mg/dL Glucose 205 H (75-100) mg/dL POC Glucose (70-105) Phosphorus 2.10 L (2.5-4.5) mg/dL Magnesium 2.40 H (1.7-2.3) mg/dL 07/01/19 Range/Units 09:07 RBC (3.65-5.03) M/mm3 Hgb (11.8-15.2) gm/dl Hct (35.5-45.6) % RDW (13.2-15.2) % Lymph % (Auto) (13.4-35.0) % Lymph # (1.2-5.4) K/mm3 Seg Neutrophils % (40.0-70.0) % Seg Neutrophils # (1.8-7.7) K/mm3 Potassium (3.6-5.0) mmol/L Chloride (98-107) mmol/L BUN (9-20) mg/dL Creatinine (0.8-1.5) mg/dL Glucose (75-100) mg/dL POC Glucose 269 H (70-105) Phosphorus (2.5-4.5) mg/dL Magnesium (1.7-2.3) mg/dL Assessment and Plan - Patient Problems (1) ESRD (end stage renal disease) Current Visit: Yes Status: Acute (2) Pneumonia Current Visit: Yes Status: Acute Qualifiers: Laterality: left Lung location: lower lobe of lung Plan to address problem: Pneumonia protocol: IV antibiotic therapy, CBC, CMP, Chest x ray, supplemental oxygen, nebulizer, pulse oximetry, blood cultures. (3) Diabetes Current Visit: Yes Status: Acute Plan to address problem: ADA diet, insulin, accu check, supportive care, hypoglycemia protocol (4) HLD (hyperlipidemia) Current Visit: Yes Status: Acute Qualifiers: Hyperlipidemia type: mixed hyperlipidemia Qualified Code(s): E78.2 - Mixed hyperlipidemia Plan to address problem: Statin therapy, lipid panel, low cholesterol diet (5) CAD (coronary artery disease) Current Visit: Yes Status: Acute Qualifiers: Associated angina: without angina Plan to address problem: statin therapy, low cholesterol diet, (6) DVT prophylaxis Current Visit: Yes Status: Acute Plan to address problem: SCD to BLE while in bed, prophylactic heparin
[2019-07-01] MEDS ORDERED: SENNOSIDES/DOCUSATE SODIUM 8.6/50 MG TAB PO PRN (11:34)
[2019-07-01] MEDS ORDERED: MINERAL OIL ENEMA 133 ML PR ONE (11:35)
[2019-07-01] MEDS ORDERED: PROTEASE PO SCH ×2 (12:00→14:00)
[2019-07-01] MEDS ORDERED: LIPASE PO SCH ×2 (12:00→14:00)
[2019-07-01] MEDS ORDERED: AMYLASE PO SCH ×2 (12:00→14:00)
[2019-07-01] MEDS: SUCRALFATE 1 GM TAB PO SCH ×3 (13:49→23:28)
[2019-07-01] MEDS: LIPASE 12,000/PROTEASE 38,000/AMYLASE 60,000 (UNITS) DR CAP PO SCH ×2 (13:49→16:30)
[2019-07-01] MEDS: hydrALAZINE 100 MG TAB PO SCH ×2 (16:19→23:31)
[2019-07-01] MEDS: cloNIDine 0.2 MG TAB PO SCH ×2 (16:19→23:26)
[2019-07-01] MEDS: oxyCODONE /ACETAMINOPHEN 5-325MG TAB PO SCH ×3 (16:19→23:29)
[2019-07-01] MEDS: DICYCLOMINE 10 MG CAP PO SCH ×2 (16:19→23:55)
--- NOTE | 2019-07-01 21:19 | Consultation ---
History of Present Illness - Reason for Consult Consult date: 07/01/19 end stage renal disease, hyperkalemia - History of Present Illness Mr. Zaldivar is a 63yo with ESRD on HD TTS who presents to the ED with worsening abdominal pain. He reports pain in lower quadrant. He denies nausea, vomiting and diarrhea. He is anuric. In the ED, labs were notable for K 6.3. Nephrology consulted for management of ESRD. Past History Past Medical History: other (see hpi) Past Surgical History: Other (dialysis access) Social history: . denies: smoking, alcohol abuse, prescription drug abuse Family history: diabetes, hypertension Medications and Allergies Allergies Allergy/AdvReac Type Severity Reaction Status Date / Time No Known Allergies Allergy Verified 01/16/19 10:10 Home Medications Medication Instructions Recorded Confirmed Last Taken Type B Complex 11/Folic/C/Biot/Zinc 1 each PO DAILY #30 06/22/19 07/01/19 Unknown Rx [Dialyvite with Zinc Tablet] Labetalol [Labetalol 200mg TAB] 200 mg PO QID #120 06/22/19 07/01/19 Unknown Rx Lipase/Protease/Amylase [Creon Dr 1 cap PO TID #90 06/22/19 07/01/19 Unknown Rx 24,000 Units Capsule] NIFEdipine XL [Procardia Xl] 60 mg PO BID #60 06/22/19 07/01/19 Unknown Rx Omeprazole 40 mg PO BID #60 06/22/19 07/01/19 Unknown Rx cloNIDine [Catapres] 0.2 mg PO TID #90 06/22/19 07/01/19 Unknown Rx hydrALAZINE [Apresoline TAB] 100 mg PO TID #90 tab 06/22/19 07/01/19 Unknown Rx oxyCODONE /ACETAMINOPHEN [Percocet 1 tab PO Q4HR #6 tab 06/22/19 07/01/19 Unknown Rx 5/325] Dicyclomine [Bentyl] 10 mg PO TID 14 Days capsule 06/25/19 07/01/19 Unknown Rx Sucralfate [Carafate] 1 gm PO ACHS 30 Days tablet 06/25/19 07/01/19 Unknown Rx Active Meds: Active Medications Acetaminophen (Tylenol) 650 mg PO Q4H PRN PRN Reason: Pain MILD(1-3)/Fever >100.5/PAEZ Albuterol (Proventil) 2.5 mg IH Q4HRT PRN PRN Reason: Shortness Of Breath Lipase/Protease/Amylase (Jamaal Peralta 12,000 Units) 2 each PO AC [facility] Last Admin: 07/01/19 16:30 Dose: Not Given Documented by: Clonidine HCl (Catapres) 0.2 mg PO TID [facility] Last Admin: 07/01/19 16:19 Dose: Not Given Documented by: Dicyclomine HCl (Bentyl) 10 mg PO TID [facility] Last Admin: 07/01/19 16:19 Dose: Not Given Documented by: Hydralazine HCl (Apresoline) 100 mg PO TID [facility] Last Admin: 07/01/19 16:19 Dose: Not Given Documented by: Sodium Chloride (Nacl 0.9%) 100 mls @ 999 mls/hr IV TAY PRN PRN Reason: Hypotension Ceftriaxone Sodium (Rocephin/Ns 2 Gm/100 Ml) 2 gm in 100 mls @ 200 mls/hr IV Q24HR [facility]; Protocol Azithromycin 500 mg/ Sodium (Chloride) 250 mls @ 250 mls/hr IV Q24HR [facility]; Protocol Labetalol HCl (Labetalol) 200 mg PO QID [facility] Last Admin: 07/01/19 19:17 Dose: 200 mg Documented by: Multivit/Ca Carb/B Cmplx/FA/Prenat (Renal Caps) 1 cap PO QDAY [facility] Nifedipine (Procardia Xl) 60 mg PO BID [facility] Ondansetron HCl (Zofran) 4 mg IV Q8H PRN PRN Reason: Nausea And Vomiting Oxycodone/Acetaminophen (Percocet 5/325) 1 tab PO Q4HR [facility] Last Admin: 07/01/19 19:17 Dose: 1 tab Documented by: Pantoprazole Sodium (Protonix) 40 mg PO BID [facility] Senna/Docusate Sodium (Senokot S) 2 tab PO Q12H PRN PRN Reason: Laxative Effect Sodium Chloride (Sodium Chloride Flush Syringe 10 Ml) 10 ml IV BID [facility] Sodium Chloride (Sodium Chloride Flush Syringe 10 Ml) 10 ml IV PRN PRN PRN Reason: LINE FLUSH Sucralfate (Carafate) 1 gm PO ACHS [facility] Last Admin: 07/01/19 16:30 Dose: Not Given Documented by: Review of Systems All systems: negative Exam - Vital Signs Vital signs: Vital Signs Temp Pulse Resp BP Pulse Ox 98.0 F 70 18 105/36 97 07/01/19 06:43 07/01/19 06:43 07/01/19 06:43 07/01/19 06:43 07/01/19 06:43 - General Appearance General appearance: well-developed, well-nourished EENT: ATNC Respiratory: Clear to Ascultation Heart: regular, S1S2 Gastrointestinal: Present: normoactive bowel sounds, tenderness (R/L lower quadrants) Integumentary: no rash, warm and dry Musculoskeletal: Present: other (no edema) Psychiatric: cooperative Results - Lab Results 07/01/19 07:03 07/01/19 07:03 Most recent lab results Calcium 8.8 mg/dL (8.4-10.2) 07/01/19 07:03 Phosphorus 2.10 mg/dL (2.5-4.5) L 07/01/19 07:03 Magnesium 2.40 mg/dL (1.7-2.3) H 07/01/19 07:03 Assessment and Plan Impression: * End stage renal disease * Hyperkalemia * Abdominal pain * Hypertension * Type II DM * Anemia secondary to ESRD * Secondary hyperparathyroidism Plan: * Hemodialysis today - UF as tolerated * Continue HD TTS prn * AM labs ordered * Abd CT reviewed - no acute findings * Abx per primary team - Ceftriaxone/Azithromycin * Dose medications for renal function * Diet as tolerated
[2019-07-01] MEDS ORDERED: NON-FORMULARY EACH (Omeprazole [Omeprazole] 40 MG) PO SCH (22:00)
[2019-07-01] MEDS: PANTOPRAZOLE 40 MG TAB PO SCH (23:26)
[2019-07-02] MEDS: NIFEdipine XL 60 MG TAB PO SCH ×2 (00:36→11:10)
[2019-07-02] MEDS: oxyCODONE /ACETAMINOPHEN 5-325MG TAB PO SCH ×3 (02:54→11:17)
[2019-07-02 05:59] LABS: Basophils % (Auto) 0.5 % (0.0-1.8); Eosinophils # (Auto) 0.2 K/mm3 (0.0-0.4); Eosinophils % (Auto) 2.2 % (0.0-4.3); Hematocrit 27.3 % (35.5-45.6); Hemoglobin 9.1 gm/dl (11.8-15.2); Lymphocytes # (Auto) 0.6 K/mm3 (1.2-5.4); Lymphocytes % (Auto) 7.3 % (13.4-35.0); Mean Corpuscular HGB Conc 33 % (32-34); Mean Corpuscular Volume 93 fl (84-94); Monocytes # (Auto) 0.7 K/mm3 (0.0-0.8); Monocytes % (Auto) 8.2 % (0.0-7.3); Platelet Count 133 K/mm3 (140-440); Red Blood Count 2.95 M/mm3 (3.65-5.03)
[2019-07-02 06:16] LABS: Calcium 8.4 mg/dL (8.4-10.2)
--- NOTE | 2019-07-02 07:47 | Progress Note ---
Assessment and Plan Impression: * End stage renal disease * Hyperkalemia - resolved * Abdominal pain * Dysphagia --EGD (Jun 2019) - mild erosive gastritis, moderate hiatal hernia, and grade C erosive esophagitis * Hypertension * Type II DM * Anemia secondary to ESRD * Secondary hyperparathyroidism Plan: * Patient is s/p hemodialysis yesterday * Continue HD TTS prn * Continue antiHTN medications * Abd CT reviewed - no acute findings; previous EGD reviewed - further work up per primary team * Abx per primary team - Ceftriaxone/Azithromycin * Dose medications for renal function * Diet as tolerated Subjective Date of service: 07/02/19 Interval history: Patient reports abdominal pain improved. He reports difficulty swallowing - reports food gets stuck. Objective - Vital Signs Vital signs: Vital Signs - 12hr 07/01/19 07/01/19 07/02/19 21:38 23:25 05:39 Temperature 99.9 F H 99.0 F Pulse Rate 84 75 Respiratory 18 18 Rate Blood Pressure 180/67 154/58 O2 Sat by Pulse 97 90 91 Oximetry - General Appearance General appearance: well-developed, well-nourished EENT: ATNC Respiratory: Present: Clear to Ascultation Cardiology: regular, S1S2 Gastrointestinal: normal, no tenderness, no distended Integumentary: no rash, warm and dry Musculoskeletal: other (no edema) Psychiatric: cooperative - Lab 07/02/19 05:21 07/02/19 05:21 Most recent lab results Calcium 8.4 mg/dL (8.4-10.2) 07/02/19 05:21 Phosphorus 2.10 mg/dL (2.5-4.5) L 07/01/19 07:03 Magnesium 2.40 mg/dL (1.7-2.3) H 07/01/19 07:03 Medications & Allergies - Medications Allergies/Adverse Reactions: Allergies No Known Allergies Allergy (Verified 01/16/19 10:10) Home Medications: Home Medications Medication Instructions Recorded Confirmed Last Taken Type B Complex 11/Folic/C/Biot/Zinc 1 each PO DAILY #30 06/22/19 07/01/19 Unknown Rx [Dialyvite with Zinc Tablet] Labetalol [Labetalol 200mg TAB] 200 mg PO QID #120 06/22/19 07/01/19 Unknown Rx Lipase/Protease/Amylase [Creon Dr 1 cap PO TID #90 06/22/19 07/01/19 Unknown Rx 24,000 Units Capsule] NIFEdipine XL [Procardia Xl] 60 mg PO BID #60 06/22/19 07/01/19 Unknown Rx Omeprazole 40 mg PO BID #60 06/22/19 07/01/19 Unknown Rx cloNIDine [Catapres] 0.2 mg PO TID #90 06/22/19 07/01/19 Unknown Rx hydrALAZINE [Apresoline TAB] 100 mg PO TID #90 tab 06/22/19 07/01/19 Unknown Rx oxyCODONE /ACETAMINOPHEN [Percocet 1 tab PO Q4HR #6 tab 06/22/19 07/01/19 Unknown Rx 5/325] Dicyclomine [Bentyl] 10 mg PO TID 14 Days capsule 06/25/19 07/01/19 Unknown Rx Sucralfate [Carafate] 1 gm PO ACHS 30 Days tablet 06/25/19 07/01/19 Unknown Rx Active Medications: Generic Name Dose Route Start Last Admin Trade Name Freq PRN Reason Stop Dose Admin Acetaminophen 650 mg 07/01/19 11:26 07/02/19 00:27 Tylenol PO 650 mg Q4H PRN Administration Pain MILD(1-3)/Fever >100.5/PAEZ Albuterol 2.5 mg 07/01/19 11:26 Proventil IH Q4HRT PRN Shortness Of Breath Lipase/Protease/Amylase 2 each 07/01/19 12:00 07/01/19 16:30 Jamaal Peralta 12,000 Units PO Not Given AC DEIRDRE Clonidine HCl 0.2 mg 07/01/19 14:00 07/01/19 23:26 Catapres PO 0.2 mg TID DEIRDRE Administration Dicyclomine HCl 10 mg 07/01/19 14:00 07/01/19 23:55 Bentyl PO 10 mg TID DEIRDRE Administration Hydralazine HCl 100 mg 07/01/19 14:00 07/01/19 23:31 Apresoline PO 100 mg TID DEIRDRE Administration Sodium Chloride 100 mls @ 999 mls/hr 07/01/19 08:46 Nacl 0.9% IV TAY PRN Hypotension Ceftriaxone Sodium 2 gm in 100 mls @ 200 mls/hr 07/02/19 10:00 Rocephin/Ns 2 Gm/100 Ml IV Q24HR [facility] Protocol Azithromycin 500 mg/ Sodium 250 mls @ 250 mls/hr 07/02/19 10:00 Chloride IV Q24HR [facility] Protocol Labetalol HCl 200 mg 07/01/19 14:00 07/01/19 23:29 Labetalol PO 200 mg QID DEIRDRE Administration Multivit/Ca Carb/B Cmplx/FA/Prenat 1 cap 07/02/19 10:00 Renal Caps PO QDAY DEIRDRE Nifedipine 60 mg 07/01/19 22:00 07/02/19 00:36 Procardia Xl PO 60 mg BID DEIRDRE Administration Ondansetron HCl 4 mg 07/01/19 11:26 Zofran IV Q8H PRN Nausea And Vomiting Oxycodone/Acetaminophen 1 tab 07/01/19 14:00 07/02/19 05:58 Percocet 5/325 PO 1 tab Q4HR DEIRDRE Administration Pantoprazole Sodium 40 mg 07/01/19 22:00 07/01/19 23:26 Protonix PO 40 mg BID DEIRDRE Administration Senna/Docusate Sodium 2 tab 07/01/19 11:34 Senokot S PO Q12H PRN Laxative Effect Sodium Chloride 10 ml 07/01/19 22:00 07/02/19 00:32 Sodium Chloride Flush Syringe 10 Ml IV 10 ml BID DEIRDRE Administration Sodium Chloride 10 ml 07/01/19 11:26 Sodium Chloride Flush Syringe 10 Ml IV PRN PRN LINE FLUSH Sucralfate 1 gm 07/01/19 11:30 07/01/19 23:28 Carafate PO 1 gm ACHS DEIRDRE Administration
[2019-07-02] MEDS: hydrALAZINE 100 MG TAB PO SCH (08:39)
[2019-07-02] MEDS: cloNIDine 0.2 MG TAB PO SCH (08:40)
[2019-07-02] MEDS: SUCRALFATE 1 GM TAB PO SCH ×2 (08:44→13:05)
[2019-07-02] MEDS: LIPASE 12,000/PROTEASE 38,000/AMYLASE 60,000 (UNITS) DR CAP PO SCH ×2 (08:48→13:00)
[2019-07-02] MEDS: DICYCLOMINE 10 MG CAP PO SCH (08:49)
[2019-07-02] MEDS ORDERED: cefTRIAXone/NS 2 GM/100 ML 2 GM/100 ML BAG IV SCH (10:00)
[2019-07-02] MEDS ORDERED: NON-FORMULARY EACH (B Complex 11/Folic/C/Biot/Zinc [Dialyvite With Zinc Tablet] 1 EACH) PO SCH (10:00)
[2019-07-02] MEDS ORDERED: FOLIC ACID/VIT B COMP W-C 1 MG (RENAL CAPS) PO SCH (10:00)
[2019-07-02] MEDS ORDERED: AZITHROMYCIN 500 MG in SODIUM CHLORIDE 0.9% 250ML 250 ML IV SCH (10:00)
[2019-07-02] MEDS: PANTOPRAZOLE 40 MG TAB PO SCH (11:11)
--- NOTE | 2019-07-02 14:17 | Discharge Summary ---
Providers - Providers Date of Admission: 07/01/19 11:26 Date of discharge: 07/02/19 Attending physician: JESSE MCKEON 07/01/19 08:13 Consult to Physician [CONS] Stat Comment: DR BRYON JUAREZ W/DR DOSS @0811 Consulting Provider: DENISE DOSS Physician Instructions: Reason For Exam: ESRD needs D hyperk [facility] Hospitalization Condition: Stable Pertinent studies: Chest x-ray: Bibasilar infiltrates CT abdomen and pelvis: No acute obstruction Hospital course: 63 YO Male with CAD S/P Stent Placement, DM, ESRD on HD(T,R,Sa) last dialyzed on , HLD presents to ED for of episodes of productive cough with yellow sputum, as well as feeling a "little warm" over the past 2 days. Pt presented to his dialysis center for his regularly scheduled dialysis and was found to be hypotensive. EMS notified, and transported to [facility]. Pt seen and evaluated in ED and found to have BL Pneumonia, ESRD, Hypervolemia. Pt admitted to medical floor. Patient was placed on empiric antibiotic, monitor blood pressure, nephrology consulted for dialysis. Patient was hyperkalemic on admission but potassium level improved following dialysis. Patient was monitored overnight, his symptom improved with medical management, patient was then discharged home with oral antibiotics and outpatient follow-up in stable condition. Discharge plan and management was discussed with the patient and he verbalized understanding. Discharge diagnosis and Mx: (1) ESRD (end stage renal disease) Current Visit: Yes Status: Acute Nephrology consulted for HD (2) bibasilar Pneumonia, CAP Current Visit: Yes Status: Acute Plan to address problem: Treat with abx, outpt f/u (3) Diabetes Current Visit: Yes Status: Chronic Plan to address problem: managed with ADA diet, insulin, accu check, supportive care, hypoglycemia protocol (4) HLD (hyperlipidemia) Current Visit: Yes Status: chronic Qualifiers: Hyperlipidemia type: mixed hyperlipidemia Qualified Code(s): E78.2 - Mixed hyperlipidemia Plan to address problem: Statin therapy, low cholesterol diet (5) CAD (coronary artery disease) Current Visit: Yes Status: chronic Qualifiers: Associated angina: without angina Plan to address problem: Aspirin, statin therapy, low cholesterol diet, (6) Hyperkalemia Current Visit: Yes Status: Acute and resolved Plan to address problem: s/p HD Disposition: DC-01 TO HOME OR SELFCARE Time spent for discharge: 34 minutes Core Measure Documentation - Palliative Care Palliative Care/ Comfort Measures: Not Applicable - Core Measures Any of the following diagnoses?: none Exam - Constitutional Vitals: Temp Pulse Resp BP Pulse Ox 99.0 F 67 18 130/50 100 07/02/19 05:39 07/02/19 08:40 07/02/19 05:39 07/02/19 11:10 07/02/19 08:17 General appearance: Present: no acute distress, well-nourished - EENT Eyes: Present: PERRL ENT: hearing intact, clear oral mucosa - Neck Neck: Present: supple, normal ROM - Respiratory Respiratory effort: normal Respiratory: bilateral: CTA - Cardiovascular Heart Sounds: Present: S1 & S2. Absent: rub, click - Extremities Extremities: pulses symmetrical, No edema Peripheral Pulses: within normal limits - Abdominal General gastrointestinal: Present: soft, non-tender, non-distended, normal bowel sounds - Integumentary Integumentary: Present: clear, warm, dry - Musculoskeletal Musculoskeletal: gait normal, strength equal bilaterally - Psychiatric Psychiatric: appropriate mood/affect, intact judgment & insight - Neurologic Neurologic: CNII-XII intact, moves all extremities Plan Activity: fall precautions Weight Bearing Status: Weight Bear as Tolerated Diet: renal Special Instructions: record daily BP diary Follow up with: RODRICK BANGURA MD [Primary Care Provider] - 3-5 Days PADDY BETANCUR MD [Staff Physician] - 7 Days Prescriptions: levoFLOXacin [Levaquin] 250 mg PO QDAY #5 tablet
[2019-07-02 15:50] VITALS: BP 116/48
== END 2019-07-02 16:00 | disposition home or self-care (01) ==
LOC: ED 06:27 → INTOOBSV 11:26 → 3A 11:26
PROVIDERS: ADMIT Internal Medicine; ATTEND Internal Medicine
DX: J18.1 Lobar pneumonia, unspecified organism (principal); I12.0 Hypertensive chronic kidney disease with stage 5 chronic kidney disease or end stage renal disease; N18.6 End stage renal disease; E87.70 Fluid overload, unspecified; E11.22 Type 2 diabetes mellitus with diabetic chronic kidney disease; I25.10 Atherosclerotic heart disease of native coronary artery without angina pectoris; E87.5 Hyperkalemia; D63.1 Anemia in chronic kidney disease; Z99.2 Dependence on renal dialysis
CPT/HCPCS: 36415; 71045; 74176; 80048; 80076; 82140; 82962; 83690; 83735; 84100; 85025; 85610; 86850; 86900; 86901; 87040; 93005; 93010; 94760; 96365; 96367; 96375; 99284; C9113; G0257; G0378; J0456; J0696; J2270; J2405; J2543; J7050; J1815

== ENCOUNTER 2019-10-13 21:49 | Inpatient (IN) | payer MEDICARE ==
--- NOTE | 2019-10-13 22:01 | Emergency Department Report ---
Blank Doc - Documentation Documentation: 64-year-old male that presents with chest pain, SOB, burping consistently. This initial assessment/diagnostic orders/clinical plan/treatment(s) is/are subject to change based on patient's health status, clinical progression and re- assessment by fellow clinical providers in the ED. Further treatment and workup at subsequent clinical providers discretion. Patient/guardians urged not to elope from the ED as their condition may be serious if not clinically assessed and managed. Initial orders include: 1- Patient sent to [facility] for further evaluation and treatment 2- EKG 3- labs 4- CXR
[2019-10-13 22:43] LABS: Basophils # (Auto) 0.1 K/mm3 (0.0-0.1); Basophils % (Auto) 0.9 % (0.0-1.8); Eosinophils # (Auto) 0.5 K/mm3 (0.0-0.4); Eosinophils % (Auto) 8.4 % (0.0-4.3); Hematocrit 36.6 % (35.5-45.6); Hemoglobin 12.4 gm/dl (11.8-15.2); Lymphocytes # (Auto) 0.8 K/mm3 (1.2-5.4); Lymphocytes % (Auto) 13.3 % (13.4-35.0); Mean Corpuscular HGB Conc 34 % (32-34); Mean Corpuscular Volume 92 fl (84-94); Monocytes # (Auto) 0.5 K/mm3 (0.0-0.8); Monocytes % (Auto) 8.1 % (0.0-7.3); Platelet Count 116 K/mm3 (140-440); Red Blood Count 3.96 M/mm3 (3.65-5.03)
[2019-10-13 22:54] LABS: INR 1.09 (0.87-1.13)
--- NOTE | 2019-10-13 22:54 | XRay Report ---
CHEST 2 VIEWS INDICATION / CLINICAL INFORMATION: Chest Pain. COMPARISON: 06/22/2019 FINDINGS: SUPPORT DEVICES: Permacath tip projects the expected location of the right atrium. HEART / MEDIASTINUM: No significant abnormality. LUNGS / PLEURA: There is bibasilar airspace opacity right greater than left. There is a small amount of pleural fluid bilaterally left greater than right. .No pneumothorax. ADDITIONAL FINDINGS: No significant additional findings. IMPRESSION: 1. There are small bilateral pleural effusions. There is bibasilar airspace opacity. Signer Name: Anthony Herr MD Signed: 10/13/2019 10:50 PM Workstation Name: [id number]
[2019-10-13 22:55] LABS: Partial Thromboplastin Time 30.9 Sec. (24.2-36.6)
[2019-10-13 23:07] LABS: Albumin 4.6 g/dL (3.9-5); Calcium 7.1 mg/dL (8.4-10.2)
[2019-10-14] MEDS ORDERED: ONDANSETRON 4 MG ODT TAB PO ONE (04:08)
[2019-10-14] MEDS ORDERED: PANTOPRAZOLE 40 MG INJ IV ONE (07:03)
[2019-10-14] MEDS ORDERED: ONDANSETRON 4 MG/2 ML INJ IV ONE (07:27)
[2019-10-14] MEDS: PANTOPRAZOLE 80 MG in SODIUM CHLORIDE 0.9% 100 ML IV SCH ×2 (08:00→20:27)
--- NOTE | 2019-10-14 08:58 | Emergency Department Report ---
ED General Adult HPI - General Chief complaint: Dyspnea/Respdistress Stated complaint: MONA Time Seen by Provider: 10/13/19 21:59 Source: patient, family, building serviceman ([facility] Room Worker line used to gather information) Mode of arrival: Ambulatory Limitations: No Limitations - History of Present Illness Initial comments: Patient presents to emergency department with chief complaint of vomiting x1 day. Patient states the vomit is dark in nature. Patient also complains of some chest discomfort with vomiting. Patient is a end-stage renal disease patient on dialysis. Patient's dialysis days of Sunday, Sunday, . -: Sudden Radiation: non-radiation Severity scale (0 -10): 9 Quality: aching Consistency: constant Improves with: none Worsens with: none Associated Symptoms: denies other symptoms Treatments Prior to Arrival: none - Related Data Previous Rx's Medication Instructions Recorded Last Taken Type B Complex 11/Folic/C/Biot/Zinc 1 each PO DAILY #30 06/22/19 Unknown Rx [Dialyvite with Zinc Tablet] Lipase/Protease/Amylase [Creon Dr 1 cap PO TID #90 06/22/19 Unknown Rx 24,000 Units Capsule] NIFEdipine XL [Procardia Xl] 60 mg PO BID #60 06/22/19 Unknown Rx Omeprazole 40 mg PO BID #60 06/22/19 Unknown Rx cloNIDine [Catapres] 0.2 mg PO TID #90 06/22/19 Unknown Rx hydrALAZINE [Apresoline TAB] 100 mg PO TID #90 tab 06/22/19 Unknown Rx labetaloL [Labetalol 200mg TAB] 200 mg PO QID #120 06/22/19 Unknown Rx oxyCODONE /ACETAMINOPHEN [Percocet 1 tab PO Q4HR #6 tab 06/22/19 Unknown Rx 5/325 mg] Dicyclomine [Bentyl] 10 mg PO TID 14 Days capsule 06/25/19 Unknown Rx Sucralfate [Carafate] 1 gm PO ACHS 30 Days tablet 06/25/19 Unknown Rx levoFLOXacin [Levaquin] 250 mg PO QDAY #5 tablet 07/02/19 Unknown Rx Allergies Allergy/AdvReac Type Severity Reaction Status Date / Time No Known Allergies Allergy Verified 01/16/19 10:10 ED Review of Systems ROS: Stated complaint: MONA Other details as noted in HPI Comment: All other systems reviewed and negative Constitutional: denies: chills, fever Eyes: denies: eye pain, eye discharge, vision change ENT: denies: ear pain, throat pain Respiratory: denies: cough, shortness of breath, wheezing Cardiovascular: denies: chest pain, palpitations Endocrine: no symptoms reported Gastrointestinal: denies: abdominal pain, nausea, diarrhea Genitourinary: denies: urgency, dysuria Musculoskeletal: denies: back pain, joint swelling, arthralgia Skin: denies: rash, lesions Neurological: denies: headache, weakness, paresthesias Psychiatric: denies: anxiety, depression Hematological/Lymphatic: denies: easy bleeding, easy bruising ED Past Medical Hx - Past Medical History Previous Medical History?: Yes Hx Hypertension: Yes Hx Congestive Heart Failure: Yes Hx Diabetes: Yes Hx Deep Vein Thrombosis: Yes Hx GERD: Yes Hx Liver Disease: No Hx Renal Disease: Yes (ESRD, dialysis ) Hx Asthma: No Hx COPD: No Hx HIV: No Additional medical history: Anemia and renal disease, iron deficiency, secondary hypoparathyroidism of renal origin - Surgical History Past Surgical History?: Yes Additional Surgical History: left arm AV grafts no longer working. [facility] chest. eyes - Social History Smoking Status: Never Smoker Substance Use Type: None - Medications Home Medications: Home Medications Medication Instructions Recorded Confirmed Last Taken Type B Complex 11/Folic/C/Biot/Zinc 1 each PO DAILY #30 06/22/19 07/01/19 Unknown Rx [Dialyvite with Zinc Tablet] Lipase/Protease/Amylase [Creon Dr 1 cap PO TID #90 06/22/19 07/01/19 Unknown Rx 24,000 Units Capsule] NIFEdipine XL [Procardia Xl] 60 mg PO BID #60 06/22/19 07/01/19 Unknown Rx Omeprazole 40 mg PO BID #60 06/22/19 07/01/19 Unknown Rx cloNIDine [Catapres] 0.2 mg PO TID #90 06/22/19 07/01/19 Unknown Rx hydrALAZINE [Apresoline TAB] 100 mg PO TID #90 tab 06/22/19 07/01/19 Unknown Rx labetaloL [Labetalol 200mg TAB] 200 mg PO QID #120 06/22/19 07/01/19 Unknown Rx oxyCODONE /ACETAMINOPHEN [Percocet 1 tab PO Q4HR #6 tab 06/22/19 07/01/19 Unknown Rx 5/325 mg] Dicyclomine [Bentyl] 10 mg PO TID 14 Days capsule 06/25/19 07/01/19 Unknown Rx Sucralfate [Carafate] 1 gm PO ACHS 30 Days tablet 06/25/19 07/01/19 Unknown Rx levoFLOXacin [Levaquin] 250 mg PO QDAY #5 tablet 07/02/19 Unknown Rx ED Physical Exam - General Limitations: No Limitations General appearance: alert, in no apparent distress - Head Head exam: Present: atraumatic, normocephalic - Eye Eye exam: Present: normal appearance, PERRL, EOMI - ENT ENT exam: Present: mucous membranes moist - Neck Neck exam: Present: normal inspection - Respiratory Respiratory exam: Present: normal lung sounds bilaterally. Absent: respiratory distress - Cardiovascular Cardiovascular Exam: Present: regular rate, normal rhythm. Absent: systolic murmur, diastolic murmur, rubs, gallop - GI/Abdominal GI/Abdominal exam: Present: soft, normal bowel sounds - Rectal Rectal exam: Present: deferred - Extremities Exam Extremities exam: Present: normal inspection - Back Exam Back exam: Present: normal inspection - Neurological Exam Neurological exam: Present: alert, oriented X3, CN II-XII intact. Absent: motor sensory deficit - Psychiatric Psychiatric exam: Present: normal affect, normal mood - Skin Skin exam: Present: warm, dry, intact, normal color. Absent: rash ED Course Vital Signs 10/13/19 10/14/19 10/14/19 21:53 03:34 07:46 Temperature 97.5 F L 97.4 F L Pulse Rate 74 59 L Respiratory 18 18 Rate Blood Pressure 136/52 103/43 O2 Sat by Pulse 97 97 96 Oximetry 10/14/19 08:31 Temperature Pulse Rate Respiratory Rate Blood Pressure 134/59 O2 Sat by Pulse 99 Oximetry ED Medical Decision Making - Lab Data Result diagrams: 10/13/19 22:23 10/13/19 22:23 Lab Results 10/13/19 10/13/19 10/13/19 Range/Units 22:23 22:23 22:23 WBC 6.0 (4.5-11.0) K/mm3 RBC 3.96 (3.65-5.03) M/mm3 Hgb 12.4 (11.8-15.2) gm/dl Hct 36.6 (35.5-45.6) % MCV 92 (84-94) fl MCH 31 (28-32) pg MCHC 34 (32-34) % RDW 17.0 H (13.2-15.2) % Plt Count 116 L (140-440) K/mm3 Lymph % (Auto) 13.3 L (13.4-35.0) % [place] % (Auto) 8.1 H (0.0-7.3) % Eos % (Auto) 8.4 H (0.0-4.3) % Baso % (Auto) 0.9 (0.0-1.8) % Lymph # 0.8 L (1.2-5.4) K/mm3 [place] # 0.5 (0.0-0.8) K/mm3 Eos # 0.5 H (0.0-0.4) K/mm3 Baso # 0.1 (0.0-0.1) K/mm3 Seg Neutrophils % 69.3 (40.0-70.0) % Seg Neutrophils # 4.2 (1.8-7.7) K/mm3 PT 14.2 (12.2-14.9) Sec. INR 1.09 (0.87-1.13) APTT 30.9 (24.2-36.6) Sec. Sodium 138 (137-145) mmol/L Potassium 5.8 H (3.6-5.0) mmol/L Chloride 90.7 L (98-107) mmol/L Carbon Dioxide 22 (22-30) mmol/L Anion Gap 31 mmol/L BUN 62 H (9-20) mg/dL Creatinine 9.2 H (0.8-1.5) mg/dL Estimated GFR 6 ml/min BUN/Creatinine Ratio 7 % Glucose 85 (75-100) mg/dL Calcium 7.1 L (8.4-10.2) mg/dL Total Bilirubin 0.40 (0.1-1.2) mg/dL AST 21 (5-40) units/L ALT 13 (7-56) units/L Alkaline Phosphatase 105 (35-129) units/L Troponin T 0.019 (0.00-0.029) ng/mL Total Protein 7.2 (6.3-8.2) g/dL Albumin 4.6 (3.9-5) g/dL Albumin/Globulin Ratio 1.8 % Blood Type Antibody Screen 10/14/19 10/14/19 Range/Units 01:04 08:32 WBC (4.5-11.0) K/mm3 RBC (3.65-5.03) M/mm3 Hgb (11.8-15.2) gm/dl Hct (35.5-45.6) % MCV (84-94) fl MCH (28-32) pg MCHC (32-34) % RDW (13.2-15.2) % Plt Count (140-440) K/mm3 Lymph % (Auto) (13.4-35.0) % [place] % (Auto) (0.0-7.3) % Eos % (Auto) (0.0-4.3) % Baso % (Auto) (0.0-1.8) % Lymph # (1.2-5.4) K/mm3 [place] # (0.0-0.8) K/mm3 Eos # (0.0-0.4) K/mm3 Baso # (0.0-0.1) K/mm3 Seg Neutrophils % (40.0-70.0) % Seg Neutrophils # (1.8-7.7) K/mm3 PT (12.2-14.9) Sec. INR (0.87-1.13) APTT (24.2-36.6) Sec. Sodium (137-145) mmol/L Potassium (3.6-5.0) mmol/L Chloride (98-107) mmol/L Carbon Dioxide (22-30) mmol/L Anion Gap mmol/L BUN (9-20) mg/dL Creatinine (0.8-1.5) mg/dL Estimated GFR ml/min BUN/Creatinine Ratio % Glucose (75-100) mg/dL Calcium (8.4-10.2) mg/dL Total Bilirubin (0.1-1.2) mg/dL AST (5-40) units/L ALT (7-56) units/L Alkaline Phosphatase (35-129) units/L Troponin T 0.012 (0.00-0.029) ng/mL Total Protein (6.3-8.2) g/dL Albumin (3.9-5) g/dL Albumin/Globulin Ratio % Blood Type A POSITIVE Antibody Screen Negative - Radiology Data Radiology results: report reviewed - Medical Decision Making Patient has coffee-ground emesis in his emesis bag IV Protonix bolus and drip initiated Critical Care Time: Yes Critical care time in (mins) excluding proc time.: 45 Critical care attestation.: If time is entered above; I have spent that time in minutes in the direct care of this critically ill patient, excluding procedure time. ED Disposition Clinical Impression: Hematemesis Disposition: OP ADMIT IP TO THIS HOSP Is pt being admited?: Yes Does the pt Need Aspirin: No Condition: Fair Referrals: PRIMARY CARE, [Primary Care Provider] - 3-5 Days
[2019-10-14] MEDS ORDERED: METOCLOPRAMIDE 10 MG/2 ML INJ IV ONE (09:42)
[2019-10-14] MEDS ORDERED: diphenhydrAMINE 50 MG/ML VIAL IV ONE (09:43)
--- NOTE | 2019-10-14 10:53 | Gastroenterology Consultation ---
<EMMA SCOTT - Last Filed: 10/14/19 13:50> History of Present Illness - Reason for Consult Consult date: 10/14/19 coffee-ground emesis Requesting physician: MATTHEW OROZCO - History of Present Illness Patient is a 64 y/o male with PMH of CAD, DM, HTN, HLD, anemia and secondary hyperparathyroidism who presented to ED with c/o vomiting with dark/coffee- ground emesis to which GI has been consulted. Found to be hyperkalemic upon admission. Patient reports acute onset of N/V today. Has associated substernal/epigastric discomfort. No hematemesis or melena. Denies fever, SOB, wt loss, diarrhea, or constipation. Patient is previously known to our service from prior hospital consult in June 2019 for similar symptoms. He underwent an extensive workup at that time to include an EGD (showed gastritis, esophagitis, and HH), abd CT, abd U/S, HIDA, and UGI series with etiology thought to be most likely 2/2 GERD/H/H disease. He has not followed up in clinic since discharge. Unsure if patient has been compliant taking PPI at home. Past History Past Medical History: other (see HPI) Past Surgical History: Other (AV fistula; LHC done 12/2008 showed left main 40% stenosis, ostial 40-50% stemosis, LAD luminal irregularities, 70% stenosis in second obtuse marginal branch small vessel, EF 60%) Social history: denies: alcohol abuse Family history: other (unknown) Medications and Allergies Allergies Allergy/AdvReac Type Severity Reaction Status Date / Time No Known Allergies Allergy Verified 01/16/19 10:10 Home Medications Medication Instructions Recorded Confirmed Last Taken Type B Complex 11/Folic/C/Biot/Zinc 1 each PO DAILY #30 06/22/19 07/01/19 Unknown Rx [Dialyvite with Zinc Tablet] Lipase/Protease/Amylase [Jamaal Dr 1 cap PO TID #90 06/22/19 07/01/19 Unknown Rx 24,000 Units Capsule] NIFEdipine XL [Procardia Xl] 60 mg PO BID #60 06/22/19 07/01/19 Unknown Rx Omeprazole 40 mg PO BID #60 06/22/19 07/01/19 Unknown Rx cloNIDine [Catapres] 0.2 mg PO TID #90 06/22/19 07/01/19 Unknown Rx hydrALAZINE [Apresoline TAB] 100 mg PO TID #90 tab 06/22/19 07/01/19 Unknown Rx labetaloL [Labetalol 200mg TAB] 200 mg PO QID #120 06/22/19 07/01/19 Unknown Rx oxyCODONE /ACETAMINOPHEN [Percocet 1 tab PO Q4HR #6 tab 06/22/19 07/01/19 Unknown Rx 5/325 mg] Dicyclomine [Bentyl] 10 mg PO TID 14 Days capsule 06/25/19 07/01/19 Unknown Rx Sucralfate [Carafate] 1 gm PO ACHS 30 Days tablet 06/25/19 07/01/19 Unknown Rx levoFLOXacin [Levaquin] 250 mg PO QDAY #5 tablet 07/02/19 Unknown Rx Active Meds: Active Medications Pantoprazole Sodium 80 mg/ (Sodium Chloride) 100 mls @ 10 mls/hr IV DIRECT DEIRDRE Last Admin: 10/14/19 08:00 Dose: 8 mg/hr, 10 mls/hr Documented by: medications reviewed/updated as required Review of Systems - Review of Systems All systems: negative Cardiovascular: chest pain Gastrointestinal: abdominal pain (epigastric), nausea, vomiting, coffee ground emesis Exam - Constitutional Vital Signs: Temp Pulse Resp BP Pulse Ox 97.4 F L 59 L 18 134/59 99 10/14/19 03:34 10/14/19 03:34 10/14/19 03:34 10/14/19 08:31 10/14/19 08:31 General appearance: no acute distress, other (ill appearing) - EENT Eyes: PERRL, EOM intact ENT: hearing intact - Respiratory Respiratory effort: normal - Cardiovascular Rhythm: regular - Gastrointestinal General gastrointestinal: Present: soft, tender (epigastric), non-distended, normal bowel sounds - Integumentary Integumentary: Present: warm, dry - Neurologic Neurological: alert and oriented x3 - Labs CBC & Chem 7: 10/14/19 12:22 10/14/19 12:22 Lab Results: Laboratory Results - last 24 hr 10/13/19 10/13/19 10/13/19 22:23 22:23 22:23 WBC 6.0 RBC 3.96 Hgb 12.4 Hct 36.6 MCV 92 MCH 31 MCHC 34 RDW 17.0 H Plt Count 116 L Lymph % (Auto) 13.3 L Jerome % (Auto) 8.1 H Eos % (Auto) 8.4 H Baso % (Auto) 0.9 Lymph # 0.8 L Jerome # 0.5 Eos # 0.5 H Baso # 0.1 Seg Neutrophils % 69.3 Seg Neutrophils # 4.2 PT 14.2 INR 1.09 APTT 30.9 Sodium 138 Potassium 5.8 H Chloride 90.7 L Carbon Dioxide 22 Anion Gap 31 BUN 62 H Creatinine 9.2 H Estimated GFR 6 BUN/Creatinine Ratio 7 Glucose 85 Calcium 7.1 L Total Bilirubin 0.40 AST 21 ALT 13 Alkaline Phosphatase 105 Troponin T 0.019 Total Protein 7.2 Albumin 4.6 Albumin/Globulin Ratio 1.8 Blood Type Antibody Screen 10/14/19 10/14/19 01:04 08:32 WBC RBC Hgb Hct MCV MCH MCHC RDW Plt Count Lymph % (Auto) Jerome % (Auto) Eos % (Auto) Baso % (Auto) Lymph # Jerome # Eos # Baso # Seg Neutrophils % Seg Neutrophils # PT INR APTT Sodium Potassium Chloride Carbon Dioxide Anion Gap BUN Creatinine Estimated GFR BUN/Creatinine Ratio Glucose Calcium Total Bilirubin AST ALT Alkaline Phosphatase Troponin T 0.012 Total Protein Albumin Albumin/Globulin Ratio Blood Type A POSITIVE Antibody Screen Negative Assessment and Plan 1.coffee-ground emesis 2.N/V-chronic/recurrent 3.epigastic/substernal pain 4.GERD -afebrile -WBC WNL -H/H 10.1/30.1, INR WNL- no hematemesis or melena; currently HD stable -potassium 6.1 -LFTs WNL -etiology- GERD +/- biliary vs other (artherosclerosis, functional, HD-related, etc.); patient with extensive prior workup for similar symptoms as below -s/p EGD 06/24/19 that showed mild erosive gastritis, moderate hiatal hernia, and grade C erosive esophagitis (bx negative for h pylori or malignancy) -abd CT 06/21/19 w/o acute findings -abd U/S 06/22/19 showed liver hemangioma but no gallstones -HIDA 06/23/19 with mildly decreased EF 28% -UGI series 06/25/19 showed small sliding hiatal hernia, multiple episodes of reflux to the proximal esophagus during exam with occasional esophageal spasm (no mass, stenosis, or mucosal defect) -no plan for repeat EGD at this time, unless overt bleeding develops -okay for clear liquids as tolerated -continue PPI and supportive care -further recommendations to follow <MERA HERNANDEZ - Last Filed: 10/14/19 16:07> Medications and Allergies Active Meds: Active Medications Pantoprazole Sodium 80 mg/ (Sodium Chloride) 100 mls @ 10 mls/hr IV DIRECT DEIRDRE Last Admin: 10/14/19 08:00 Dose: 8 mg/hr, 10 mls/hr Documented by: Sodium Chloride (Nacl 0.9%) 100 mls @ 999 mls/hr IV TAY PRN PRN Reason: Hypotension Metoclopramide HCl (Reglan) 10 mg IV Q6H DEIRDRE Ondansetron HCl (Zofran) 4 mg IV Q4H PRN PRN Reason: Nausea And Vomiting Last Admin: 10/14/19 12:40 Dose: 4 mg Documented by: Exam - Constitutional Vital Signs: Temp Pulse Resp BP Pulse Ox 97.4 F L 59 L 18 125/59 93 10/14/19 03:34 10/14/19 03:34 10/14/19 03:34 10/14/19 11:00 10/14/19 11:00 - Labs CBC & Chem 7: 10/14/19 12:22 10/14/19 12:22 Lab Results: Laboratory Results - last 24 hr 10/13/19 10/13/19 10/13/19 22:23 22:23 22:23 WBC 6.0 RBC 3.96 Hgb 12.4 Hct 36.6 MCV 92 MCH 31 MCHC 34 RDW 17.0 H Plt Count 116 L Lymph % (Auto) 13.3 L Jerome % (Auto) 8.1 H Eos % (Auto) 8.4 H Baso % (Auto) 0.9 Lymph # 0.8 L Jerome # 0.5 Eos # 0.5 H Baso # 0.1 Seg Neutrophils % 69.3 Seg Neutrophils # 4.2 PT 14.2 INR 1.09 APTT 30.9 Sodium 138 Potassium 5.8 H Chloride 90.7 L Carbon Dioxide 22 Anion Gap 31 BUN 62 H Creatinine 9.2 H Estimated GFR 6 BUN/Creatinine Ratio 7 Glucose 85 POC Glucose Calcium 7.1 L Total Bilirubin 0.40 AST 21 ALT 13 Alkaline Phosphatase 105 Troponin T 0.019 Total Protein 7.2 Albumin 4.6 Albumin/Globulin Ratio 1.8 Hepatitis A IgM Ab Hep Bs Antigen Hep B Core IgM Ab Hepatitis C Antibody Blood Type Antibody Screen 10/14/19 10/14/19 10/14/19 01:04 08:32 12:22 WBC 8.7 RBC 3.24 L Hgb 10.1 L Hct 30.1 L D MCV 93 MCH 31 MCHC 34 RDW 17.3 H Plt Count 118 L Lymph % (Auto) Jerome % (Auto) Eos % (Auto) Baso % (Auto) Lymph # Jerome # Eos # Baso # Seg Neutrophils % Seg Neutrophils # PT INR APTT Sodium Potassium Chloride Carbon Dioxide Anion Gap BUN Creatinine Estimated GFR BUN/Creatinine Ratio Glucose POC Glucose Calcium Total Bilirubin AST ALT Alkaline Phosphatase Troponin T 0.012 Total Protein Albumin Albumin/Globulin Ratio Hepatitis A IgM Ab Hep Bs Antigen Hep B Core IgM Ab Hepatitis C Antibody Blood Type A POSITIVE Antibody Screen Negative 10/14/19 10/14/19 10/14/19 12:22 12:39 13:14 WBC RBC Hgb Hct MCV MCH MCHC RDW Plt Count Lymph % (Auto) Jerome % (Auto) Eos % (Auto) Baso % (Auto) Lymph # Jerome # Eos # Baso # Seg Neutrophils % Seg Neutrophils # PT INR APTT Sodium 135 L Potassium 6.1 H* Chloride 88.0 L Carbon Dioxide 18 L Anion Gap 35 BUN 98 H Creatinine 10.4 H Estimated GFR 5 BUN/Creatinine Ratio 9 Glucose 311 H POC Glucose 201 H Calcium 6.5 L Total Bilirubin AST ALT Alkaline Phosphatase Troponin T Total Protein Albumin Albumin/Globulin Ratio Hepatitis A IgM Ab Non-reactive Hep Bs Antigen Non-reactive Hep B Core IgM Ab Non-reactive Hepatitis C Antibody Non-reactive Blood Type Antibody Screen Assessment and Plan Patient seen and examined; agree with note above. h/o erosive esophagitis. H/H within baseline. manage conservatively from gi stand point. rest as above.
[2019-10-14] MEDS ORDERED: INSULIN REGULAR, HUMAN 100 UNITS/1 ML IV STA (11:05)
[2019-10-14] MEDS ORDERED: DEXTROSE 50% IN WATER (25GM) 50 ML VIAL IV STA (11:06)
[2019-10-14] MEDS ORDERED: CALCIUM GLUCONATE 1,000 MG in SODIUM CHLORIDE 0.9% 100 ML IV STA (11:07)
[2019-10-14] MEDS ORDERED: INSULIN REGULAR, HUMAN 100 UNITS/1 ML ONE (11:23)
--- NOTE | 2019-10-14 11:43 | History and Physical Report ---
History of Present Illness Date of examination: 10/14/19 Date of admission: 10/14/19 09:19 Chief complaint: Coffee ground emesis History of present illness: Patient is 64 yo with coronary artery disease, End-stage renal disease on dialysis, hypertension, diabetes, gastritis,esophagitis. He presents with nausea, vomiting with coffee ground emesis for few days. Patient vomited multiple times even in my presence. He was seen and evaluated in ED. He was started on Protonix for coffee ground emesis. Labs show hyperkalemia with Potassium 5.8. Will give calcium gluconate, Insulin and Dextrose. Will admit. Past History Past Medical History: CAD, diabetes, ESRD, hypertension, hyperlipidemia Past Surgical History: Other (Fistula left arm) Social history: , lives with family. denies: smoking, alcohol abuse Family history: diabetes, hypertension Medications and Allergies Allergies Allergy/AdvReac Type Severity Reaction Status Date / Time No Known Allergies Allergy Verified 01/16/19 10:10 Home Medications Medication Instructions Recorded Confirmed Last Taken Type B Complex 11/Folic/C/Biot/Zinc 1 each PO DAILY #30 06/22/19 07/01/19 Unknown Rx [Dialyvite with Zinc Tablet] Lipase/Protease/Amylase [Creon Dr 1 cap PO TID #90 06/22/19 07/01/19 Unknown Rx 24,000 Units Capsule] NIFEdipine XL [Procardia Xl] 60 mg PO BID #60 06/22/19 07/01/19 Unknown Rx Omeprazole 40 mg PO BID #60 06/22/19 07/01/19 Unknown Rx cloNIDine [Catapres] 0.2 mg PO TID #90 06/22/19 07/01/19 Unknown Rx hydrALAZINE [Apresoline TAB] 100 mg PO TID #90 tab 06/22/19 07/01/19 Unknown Rx labetaloL [Labetalol 200mg TAB] 200 mg PO QID #120 06/22/19 07/01/19 Unknown Rx oxyCODONE /ACETAMINOPHEN [Percocet 1 tab PO Q4HR #6 tab 06/22/19 07/01/19 Unknown Rx 5/325 mg] Dicyclomine [Bentyl] 10 mg PO TID 14 Days capsule 06/25/19 07/01/19 Unknown Rx Sucralfate [Carafate] 1 gm PO ACHS 30 Days tablet 06/25/19 07/01/19 Unknown Rx levoFLOXacin [Levaquin] 250 mg PO QDAY #5 tablet 07/02/19 Unknown Rx Active Meds: Active Medications Pantoprazole Sodium 80 mg/ (Sodium Chloride) 100 mls @ 10 mls/hr IV DIRECT DEIRDRE Last Admin: 10/14/19 08:00 Dose: 8 mg/hr, 10 mls/hr Documented by: Review of Systems All systems: negative ([place]igh fever, no headache, no chest pain, no SOB. All other systems reviewed and are negative.) Exam - Physical Exam Narrative exam: GEN: Not in acute distress, lying in bed, HEENT: Normocephalic, atraumatic, Neck: supple, No JVD Lungs: Clear to auscultation bilat, no wheeze, heart;S1 and S2 reg, no murmurs, rubs or gallop Abd:soft, tender mid to upper abd, no rebound,non distended, normal bowel sounds Ext: No edema, no clubbing, no cyanosis Neuro: Awake,alert, oriented X 3, no focal neurological signs - Constitutional Vitals: Temp Pulse Resp BP Pulse Ox 97.4 F L 59 L 18 125/59 93 10/14/19 03:34 10/14/19 03:34 10/14/19 03:34 10/14/19 11:00 10/14/19 11:00 Results - Labs CBC & Chem 7: 10/15/19 04:35 10/15/19 04:35 Labs: Abnormal lab results 10/13/19 10/13/19 Range/Units 22:23 22:23 RDW 17.0 H (13.2-15.2) % Plt Count 116 L (140-440) K/mm3 Lymph % (Auto) 13.3 L (13.4-35.0) % Hyde % (Auto) 8.1 H (0.0-7.3) % Eos % (Auto) 8.4 H (0.0-4.3) % Lymph # 0.8 L (1.2-5.4) K/mm3 Eos # 0.5 H (0.0-0.4) K/mm3 Potassium 5.8 H (3.6-5.0) mmol/L Chloride 90.7 L (98-107) mmol/L BUN 62 H (9-20) mg/dL Creatinine 9.2 H (0.8-1.5) mg/dL Calcium 7.1 L (8.4-10.2) mg/dL Assessment and Plan Upper GI bleed with coffee ground emesis Admit Start Protonix drip Monitor H?H Transfuse if Hgb<7 consult GI Physician ESRD on hemodialysis Consult Nephrology Hyperkalemia Give calcium, Insulin,Dextrose, kayexalate Repeat CAD Currently stable No chest pain Hypertension Monitor BP Diabetes mellitus type 2 Accucheck q 6h, simce NPO Hyperlipidemia Full code status
[2019-10-14] MEDS ORDERED: ONDANSETRON 4 MG/2 ML INJ IV PRN (11:58)
[2019-10-14] MEDS ORDERED: ONDANSETRON 4 MG/2 ML INJ ONE (12:37)
[2019-10-14 12:59] LABS: Hematocrit 30.1 % (35.5-45.6); Hemoglobin 10.1 gm/dl (11.8-15.2); Mean Corpuscular HGB Conc 34 % (32-34); Mean Corpuscular Volume 93 fl (84-94); Platelet Count 118 K/mm3 (140-440); Red Blood Count 3.24 M/mm3 (3.65-5.03); Red Cell Distribution Width 17.3 % (13.2-15.2)
[2019-10-14 13:19] LABS: Calcium 6.5 mg/dL (8.4-10.2)
[2019-10-14 13:44] LABS: Hepatitis B Surface Antigen Non-Reactive (Negative); Hepatitis C Virus Antibody Non-Reactive (NonReactive)
[2019-10-14] MEDS ORDERED: SODIUM POLYSTYRENE 15 GM/60 ML ORAL LIQD PR ONE (14:26)
[2019-10-14] MEDS ORDERED: SODIUM CHLORIDE 0.9% 100 ML IV PRN (14:30)
--- NOTE | 2019-10-14 16:32 | Consultation ---
History of Present Illness - Reason for Consult Consult date: 10/14/19 end stage renal disease - History of Present Illness This is a 64 year-old man with ESRD who presents for concern of GI bleed. Patient usually dialyzes // at [facility]. Last HD completed on 10/11/2019; went to HD today but was not dialyzed due to concerns of GI bleed. Denies any recent issues with HD, including dizziness, lightheadedness, cramping, chest pain on HD. Currently, patient denies any issues including dyspnea, edema, access issues, nausea, vomiting, headaches. Seen on HD at time of consult, no issues noted. Past History Past Medical History: ESRD, other (see HPI) Past Surgical History: Other (AV fistula; LHC done 12/2008 showed left main 40% stenosis, ostial 40-50% stemosis, LAD luminal irregularities, 70% stenosis in second obtuse marginal branch small vessel, EF 60%) Social history: denies: alcohol abuse Family history: other (unknown) Medications and Allergies Allergies Allergy/AdvReac Type Severity Reaction Status Date / Time No Known Allergies Allergy Verified 01/16/19 10:10 Home Medications Medication Instructions Recorded Confirmed Last Taken Type B Complex 11/Folic/C/Biot/Zinc 1 each PO DAILY #30 06/22/19 07/01/19 Unknown Rx [Dialyvite with Zinc Tablet] Lipase/Protease/Amylase [Creon Dr 1 cap PO TID #90 06/22/19 07/01/19 Unknown Rx 24,000 Units Capsule] NIFEdipine XL [Procardia Xl] 60 mg PO BID #60 06/22/19 07/01/19 Unknown Rx Omeprazole 40 mg PO BID #60 06/22/19 07/01/19 Unknown Rx cloNIDine [Catapres] 0.2 mg PO TID #90 06/22/19 07/01/19 Unknown Rx hydrALAZINE [Apresoline TAB] 100 mg PO TID #90 tab 06/22/19 07/01/19 Unknown Rx labetaloL [Labetalol 200mg TAB] 200 mg PO QID #120 06/22/19 07/01/19 Unknown Rx oxyCODONE /ACETAMINOPHEN [Percocet 1 tab PO Q4HR #6 tab 06/22/19 07/01/19 Unknown Rx 5/325 mg] Dicyclomine [Bentyl] 10 mg PO TID 14 Days capsule 06/25/19 07/01/19 Unknown Rx Sucralfate [Carafate] 1 gm PO ACHS 30 Days tablet 06/25/19 07/01/19 Unknown Rx levoFLOXacin [Levaquin] 250 mg PO QDAY #5 tablet 07/02/19 Unknown Rx Active Meds: Active Medications Pantoprazole Sodium 80 mg/ (Sodium Chloride) 100 mls @ 10 mls/hr IV DIRECT DEIRDRE Last Admin: 10/14/19 08:00 Dose: 8 mg/hr, 10 mls/hr Documented by: Sodium Chloride (Nacl 0.9%) 100 mls @ 999 mls/hr IV TAY PRN PRN Reason: Hypotension Metoclopramide HCl (Reglan) 10 mg IV Q6H DEIRDRE Ondansetron HCl (Zofran) 4 mg IV Q4H PRN PRN Reason: Nausea And Vomiting Last Admin: 10/14/19 12:40 Dose: 4 mg Documented by: Review of Systems Constitutional: no weight loss, no weight gain Ears, nose, mouth and throat: no sore throat, no headache, no vertigo Cardiovascular: no chest pain, no palpitations, no rapid/irregular heart beat, no edema Respiratory: no shortness of breath, no dyspnea on exertion, no pain on inspiration Gastrointestinal: no abdominal pain, no nausea, no vomiting, no diarrhea Genitourinary Male: no dysuria Musculoskeletal: no low back pain, no myalgias Integumentary: no rash Neurological: no weakness, no parathesias, no headaches Psychiatric: no anxiety Exam - Vital Signs Vital signs: Vital Signs Temp Pulse Resp BP Pulse Ox 97.5 F L 74 18 136/52 97 10/13/19 21:53 10/13/19 21:53 10/13/19 21:53 10/13/19 21:53 10/13/19 21:53 - Physical Exam Narrative exam: Constitutional: no acute distress Head: NC/AT Neck: supple Lungs: clear to auscultation CV: RRR, no M/R/G Abdomen: soft, non-tender, bowel sounds present Back: nontender Extremities: no edema, pulses WNL. AVF intact Skin: intact Neuro: no focal deficits, alert and oriented x4 Results - Lab Results 10/14/19 12:22 10/14/19 12:22 Most recent lab results Calcium 6.5 mg/dL (8.4-10.2) L 10/14/19 12:22 Assessment and Plan This is a 64 year old man who presents with concern for GI bleed. # ESRD: - dialyze today for hyperkalemia, continue HD // or prn labs/volume - daily labs - renally dose meds - avoid nephrotoxins - renal diet # Hyperkalemia # Metabolic Acidosis # Anemia: last hemoglobin 10.1. Appreciate GI input. No indication for RICK with HD # HTN: UF as tolerated. BP reasonable # Secondary Hyperparathyroidism: continue home binders as needed. Will use higher Ca bath given hypocalcemia, continue vitamin D analog with HD.
[2019-10-14] MEDS: hydrALAZINE 20 MG/1 ML INJ IV PRN (23:58)
[2019-10-15] MEDS: METOCLOPRAMIDE 10 MG/2 ML INJ IV SCH ×5 (00:01→21:09)
[2019-10-15 04:49] LABS: Hematocrit 31.2 % (35.5-45.6); Hemoglobin 10.7 gm/dl (11.8-15.2); Mean Corpuscular HGB Conc 35 % (32-34); Mean Corpuscular Volume 91 fl (84-94); Platelet Count 126 K/mm3 (140-440); Red Blood Count 3.41 M/mm3 (3.65-5.03); Red Cell Distribution Width 16.7 % (13.2-15.2)
[2019-10-15] MEDS: hydrALAZINE 20 MG/1 ML INJ IV PRN ×3 (05:30→13:44)
[2019-10-15] MEDS: PANTOPRAZOLE 80 MG in SODIUM CHLORIDE 0.9% 100 ML IV SCH (06:52)
[2019-10-15] MEDS: hydrALAZINE 100 MG TAB PO SCH ×3 (09:17→20:59)
[2019-10-15] MEDS: amLODIPine 10 MG TAB PO SCH (09:17)
[2019-10-15] MEDS: cloNIDine 0.2 MG TAB PO SCH ×3 (09:17→21:03)
--- NOTE | 2019-10-15 11:07 | Gastroenterology Progress Note ---
Assessment and Plan 1. Coffee ground emesis/upper gi bleed - resolved, H/H stable. h/o erosive esophagitis on prior endoscopy 2. Nausea/vomiting - resolved -cont PPI BID dosing and carafate. diet as tolerated from gi stand point. no plans for endoscopy unless signs of further bleeding or other indication arises. will sign off, please call as needed. Subjective Date of service: 10/15/19 Principal diagnosis: coffee ground emesis Interval history: pt seen and examined; no further n/v episodes. complains of "gas" but denies abd pain or melena/hematochezia. Objective - Constitutional Vitals: Temp Pulse Resp BP Pulse Ox 99.1 F 90 12 218/78 96 10/15/19 08:00 10/15/19 09:18 10/15/19 07:51 10/15/19 09:18 10/15/19 07:41 General appearance: no acute distress - Respiratory Respiratory effort: normal Respiratory: bilateral: CTA - Cardiovascular Rhythm: regular Heart Sounds: Present: S1 & S2 - Gastrointestinal General gastrointestinal: Present: soft, non-tender, non-distended - Neurologic Neurological: alert and oriented x3 - Labs CBC & Chem 7: 10/15/19 04:35 10/15/19 04:35 Labs: Laboratory Results - last 24 hr 10/14/19 10/14/19 10/14/19 12:22 12:22 12:39 WBC 8.7 RBC 3.24 L Hgb 10.1 L Hct 30.1 L D MCV 93 MCH 31 MCHC 34 RDW 17.3 H Plt Count 118 L Sodium 135 L Potassium 6.1 H* Chloride 88.0 L Carbon Dioxide 18 L Anion Gap 35 BUN 98 H Creatinine 10.4 H Estimated GFR 5 BUN/Creatinine Ratio 9 Glucose 311 H POC Glucose 201 H Calcium 6.5 L Hepatitis A IgM Ab Hep Bs Antigen Hep B Core IgM Ab Hepatitis C Antibody 10/14/19 10/15/19 10/15/19 13:14 00:21 04:35 WBC 6.8 RBC 3.41 L Hgb 10.7 L Hct 31.2 L MCV 91 MCH 32 MCHC 35 H RDW 16.7 H Plt Count 126 L Sodium Potassium Chloride Carbon Dioxide Anion Gap BUN Creatinine Estimated GFR BUN/Creatinine Ratio Glucose POC Glucose 76 Calcium Hepatitis A IgM Ab Non-reactive Hep Bs Antigen Non-reactive Hep B Core IgM Ab Non-reactive Hepatitis C Antibody Non-reactive 10/15/19 10/15/19 04:35 05:38 WBC RBC Hgb Hct MCV MCH MCHC RDW Plt Count Sodium 141 Potassium 4.5 D Chloride 96.8 L Carbon Dioxide 26 D Anion Gap 23 BUN 31 H Creatinine 5.2 H Estimated GFR 11 BUN/Creatinine Ratio 6 Glucose 82 POC Glucose 80 Calcium 8.0 L D Hepatitis A IgM Ab Hep Bs Antigen Hep B Core IgM Ab Hepatitis C Antibody
--- NOTE | 2019-10-15 11:44 | Progress Note ---
Assessment and Plan This is a 64 year old man who presents with concern for GI bleed. # ESRD: - dialyzed yesterday for hyperkalemia, continue HD // or prn labs/volume. No indication for HD today - daily labs - renally dose meds - avoid nephrotoxins - renal diet # Hyperkalemia: improved s/p HD # Metabolic Acidosis: improved s/p HD # Anemia: last hemoglobin 10.7. Appreciate GI input. No indication for RICK with HD # HTN: UF as tolerated. BP high; plan for more aggressive UF with next HD. May need additional BP agent. # Secondary Hyperparathyroidism: continue home binders as needed. Will use higher Ca bath given hypocalcemia, continue vitamin D analog with HD. Did improved with IV calcium per primary team Subjective Date of service: 10/15/19 Principal diagnosis: coffee ground emesis Interval history: No acute issues noted. Tolerated HD well yesterday, without concerns this AM. Objective - Exam Narrative Exam: Constitutional: no acute distress Head: NC/AT Neck: supple Lungs: clear to auscultation CV: RRR, no M/R/G Abdomen: soft, non-tender, bowel sounds present Back: nontender Extremities: no edema, pulses WNL. AVF intact Skin: intact Neuro: no focal deficits, alert and oriented x4 - Vital Signs Vital signs: Vital Signs - 12hr 10/14/19 10/14/19 10/14/19 23:41 23:51 23:58 Temperature Pulse Rate 84 85 86 Pulse Rate [ From Monitor] Respiratory 13 13 Rate Blood Pressure 227/84 227/84 237/90 O2 Sat by Pulse 94 94 Oximetry 10/15/19 10/15/19 10/15/19 00:00 00:11 00:21 Temperature 98.6 F Pulse Rate 87 90 85 Pulse Rate [ From Monitor] Respiratory 12 13 13 Rate Blood Pressure 228/86 228/86 227/88 O2 Sat by Pulse 92 96 94 Oximetry 10/15/19 10/15/19 10/15/19 00:31 00:41 00:51 Temperature Pulse Rate 96 H 85 85 Pulse Rate [ From Monitor] Respiratory 13 14 14 Rate Blood Pressure 227/88 227/88 208/77 O2 Sat by Pulse 88 95 97 Oximetry 10/15/19 10/15/19 10/15/19 01:00 01:11 01:21 Temperature Pulse Rate 83 83 82 Pulse Rate [ 92 H From Monitor] Respiratory 14 13 11 L Rate Blood Pressure 205/73 205/73 205/73 O2 Sat by Pulse 95 98 96 Oximetry 10/15/19 10/15/19 10/15/19 01:31 01:41 01:51 Temperature Pulse Rate 80 81 80 Pulse Rate [ From Monitor] Respiratory 14 13 13 Rate Blood Pressure 208/77 208/77 208/77 O2 Sat by Pulse 96 95 95 Oximetry 10/15/19 10/15/19 10/15/19 02:00 02:11 02:21 Temperature Pulse Rate 79 80 79 Pulse Rate [ From Monitor] Respiratory 12 13 10 L Rate Blood Pressure 219/78 205/73 205/73 O2 Sat by Pulse 94 95 96 Oximetry 10/15/19 10/15/19 10/15/19 02:31 02:41 02:51 Temperature Pulse Rate 81 81 82 Pulse Rate [ From Monitor] Respiratory 13 16 16 Rate Blood Pressure 205/73 219/78 219/78 O2 Sat by Pulse 97 96 95 Oximetry 10/15/19 10/15/19 10/15/19 03:00 03:10 03:21 Temperature Pulse Rate 79 83 77 Pulse Rate [ From Monitor] Respiratory 15 15 12 Rate Blood Pressure 216/78 216/78 216/78 O2 Sat by Pulse 94 98 94 Oximetry 10/15/19 10/15/19 10/15/19 03:31 03:41 03:51 Temperature Pulse Rate 77 77 77 Pulse Rate [ From Monitor] Respiratory 13 12 13 Rate Blood Pressure 216/78 216/78 216/78 O2 Sat by Pulse 95 94 95 Oximetry 10/15/19 10/15/19 10/15/19 04:00 04:11 04:21 Temperature 98.8 F Pulse Rate 77 82 79 Pulse Rate [ 76 From Monitor] Respiratory 12 13 17 Rate Blood Pressure 209/73 209/73 209/73 O2 Sat by Pulse 92 95 94 Oximetry 10/15/19 10/15/19 10/15/19 04:31 04:41 04:51 Temperature Pulse Rate 75 94 H 82 Pulse Rate [ From Monitor] Respiratory 23 17 15 Rate Blood Pressure 209/73 209/73 209/73 O2 Sat by Pulse 98 92 96 Oximetry 10/15/19 10/15/19 10/15/19 05:01 05:11 05:21 Temperature Pulse Rate 79 75 76 Pulse Rate [ From Monitor] Respiratory 15 13 12 Rate Blood Pressure 242/88 242/88 242/88 O2 Sat by Pulse 94 96 94 Oximetry 10/15/19 10/15/19 10/15/19 05:30 05:31 05:41 Temperature Pulse Rate 76 77 76 Pulse Rate [ From Monitor] Respiratory 15 16 Rate Blood Pressure 242/88 242/88 242/88 O2 Sat by Pulse 95 95 Oximetry 10/15/19 10/15/19 10/15/19 05:51 06:01 06:11 Temperature Pulse Rate 89 78 75 Pulse Rate [ From Monitor] Respiratory 12 14 12 Rate Blood Pressure 242/88 242/88 242/88 O2 Sat by Pulse 98 97 Oximetry 10/15/19 10/15/19 10/15/19 06:21 06:31 06:41 Temperature Pulse Rate 77 79 76 Pulse Rate [ From Monitor] Respiratory 11 L 16 12 Rate Blood Pressure 242/88 242/88 242/88 O2 Sat by Pulse 94 94 97 Oximetry 10/15/19 10/15/19 10/15/19 06:51 07:01 07:11 Temperature Pulse Rate 78 81 77 Pulse Rate [ From Monitor] Respiratory 13 15 13 Rate Blood Pressure 242/88 242/88 242/88 O2 Sat by Pulse 97 96 93 Oximetry 10/15/19 10/15/19 10/15/19 07:21 07:31 07:41 Temperature Pulse Rate 74 87 80 Pulse Rate [ From Monitor] Respiratory 12 17 15 Rate Blood Pressure 242/88 242/88 242/88 O2 Sat by Pulse 95 97 96 Oximetry 10/15/19 10/15/19 10/15/19 07:51 08:00 09:17 Temperature 99.1 F Pulse Rate 89 90 Pulse Rate [ From Monitor] Respiratory 12 Rate Blood Pressure 242/88 218/78 O2 Sat by Pulse Oximetry 10/15/19 09:18 Temperature Pulse Rate 90 Pulse Rate [ From Monitor] Respiratory Rate Blood Pressure 218/78 O2 Sat by Pulse Oximetry - Lab 10/15/19 04:35 10/15/19 04:35 Most recent lab results Calcium 8.0 mg/dL (8.4-10.2) L D 10/15/19 04:35 Medications & Allergies - Medications Allergies/Adverse Reactions: Allergies No Known Allergies Allergy (Verified 01/16/19 10:10) Home Medications: Home Medications Medication Instructions Recorded Confirmed Last Taken Type B Complex 11/Folic/C/Biot/Zinc 1 each PO DAILY #30 06/22/19 07/01/19 Unknown Rx [Dialyvite with Zinc Tablet] Lipase/Protease/Amylase [Jamaal Dr 1 cap PO TID #90 06/22/19 07/01/19 Unknown Rx 24,000 Units Capsule] NIFEdipine XL [Procardia Xl] 60 mg PO BID #60 06/22/19 07/01/19 Unknown Rx Omeprazole 40 mg PO BID #60 06/22/19 07/01/19 Unknown Rx cloNIDine [Catapres] 0.2 mg PO TID #90 06/22/19 07/01/19 Unknown Rx hydrALAZINE [Apresoline TAB] 100 mg PO TID #90 tab 06/22/19 07/01/19 Unknown Rx labetaloL [Labetalol 200mg TAB] 200 mg PO QID #120 06/22/19 07/01/19 Unknown Rx oxyCODONE /ACETAMINOPHEN [Percocet 1 tab PO Q4HR #6 tab 06/22/19 07/01/19 Unknown Rx 5/325 mg] Dicyclomine [Bentyl] 10 mg PO TID 14 Days capsule 06/25/19 07/01/19 Unknown Rx Sucralfate [Carafate] 1 gm PO ACHS 30 Days tablet 06/25/19 07/01/19 Unknown Rx levoFLOXacin [Levaquin] 250 mg PO QDAY #5 tablet 07/02/19 Unknown Rx Active Medications: Generic Name Dose Route Start Last Admin Trade Name Amadouq PRN Reason Stop Dose Admin Amlodipine Besylate 10 mg 10/15/19 10:00 10/15/19 09:17 Amlodipine PO 10 mg QDAY DEIRDRE Administration Clonidine HCl 0.2 mg 10/15/19 09:00 10/15/19 09:17 Catapres PO 0.2 mg Q8HR DEIRDRE Administration Hydralazine HCl 10 mg 10/14/19 22:09 10/15/19 09:18 Apresoline IV 10 mg Q4H PRN Administration Blood Pressure Hydralazine HCl 100 mg 10/15/19 09:00 10/15/19 09:17 Apresoline PO 100 mg TID DEIRDRE Administration Pantoprazole Sodium 80 mg/ 100 mls @ 10 mls/hr 10/14/19 08:00 10/15/19 06:52 Sodium Chloride IV 8 mg/hr DIRECT DEIRDRE 10 mls/hr Administration 8 MG/HR Sodium Chloride 100 mls @ 999 mls/hr 10/14/19 14:30 Nacl 0.9% IV TAY PRN Hypotension Metoclopramide HCl 10 mg 10/14/19 16:00 10/15/19 05:31 Reglan IV 10 mg Q6H DEIRDRE Administration Ondansetron HCl 4 mg 10/14/19 11:58 10/14/19 12:40 Zofran IV 4 mg Q4H PRN Administration Nausea And Vomiting
--- NOTE | 2019-10-15 12:08 | Progress Note ---
Assessment and Plan Assessment and plan: Upper GI bleed with coffee ground emesis Admitted to [facility] Started Protonix drip Monitor H/H, been stable so far Transfuse if Hgb<7 consulted GI Physician, discussed with GI start diet since vomiting subsided Hypertensive urgency resumed home meds Hydralazine iv prn ESRD on hemodialysis Consulted Nephrology, following Hyperkalemia Resolved Gave calcium, Insulin,Dextrose, kayexalate CAD Currently stable No chest pain Hypertension Monitor BP Diabetes mellitus type 2 Accucheck q 6h, simce NPO Hyperlipidemia Full code status History Interval history: Feels better No more vomiting Hospitalist Physical - Physical exam Narrative exam: GEN: Not in acute distress, lying in bed, HEENT: Normocephalic, atraumatic, Neck: supple, No JVD Lungs: Clear to auscultation bilat, no wheeze, heart;S1 and S2 reg, no murmurs, rubs or gallop Abd:soft, tender mid to upper abd, no rebound,non distended, normal bowel sounds Ext: No edema, no clubbing, no cyanosis Neuro: Awake,alert, oriented X 3, no focal neurological signs - Constitutional Vitals: Temp Pulse Resp BP Pulse Ox 99.1 F 78 12 190/69 96 10/15/19 08:00 10/15/19 11:01 10/15/19 11:01 10/15/19 11:01 10/15/19 11:01 ROEL score - Roel Score Age > 65: (0) No Aspirin use within the Past 7 Days: (0) No 3 or more CAD Risk Factors: (1) Yes 2 or more Angina events in past 24 hrs: (0) No Known CAD with more than 50% Stenosis: (0) No Elevated Cardiac Markers: (0) No ST Deviation Greater than 0.5mm: (0) No ROEL Score: 1 Results - Labs CBC & Chem 7: 10/15/19 04:35 10/15/19 04:35 Labs: Laboratory Last Values WBC 6.8 K/mm3 (4.5-11.0) 10/15/19 04:35 RBC 3.41 M/mm3 (3.65-5.03) L 10/15/19 04:35 Hgb 10.7 gm/dl (11.8-15.2) L 10/15/19 04:35 Hct 31.2 % (35.5-45.6) L 10/15/19 04:35 MCV 91 fl (84-94) 10/15/19 04:35 MCH 32 pg (28-32) 10/15/19 04:35 MCHC 35 % (32-34) H 10/15/19 04:35 RDW 16.7 % (13.2-15.2) H 10/15/19 04:35 Plt Count 126 K/mm3 (140-440) L 10/15/19 04:35 Lymph % (Auto) 13.3 % (13.4-35.0) L 10/13/19 22:23 Divide % (Auto) 8.1 % (0.0-7.3) H 10/13/19 22:23 Eos % (Auto) 8.4 % (0.0-4.3) H 10/13/19 22:23 Baso % (Auto) 0.9 % (0.0-1.8) 10/13/19 22:23 Lymph # 0.8 K/mm3 (1.2-5.4) L 10/13/19 22:23 Divide # 0.5 K/mm3 (0.0-0.8) 10/13/19 22:23 Eos # 0.5 K/mm3 (0.0-0.4) H 10/13/19 22:23 Baso # 0.1 K/mm3 (0.0-0.1) 10/13/19 22:23 Seg Neutrophils % 69.3 % (40.0-70.0) 10/13/19 22: Seg Neutrophils # 4.2 K/mm3 (1.8-7.7) 10/13/19 22:23 PT 14.2 Sec. (12.2-14.9) 10/13/19 22: INR 1.09 (0.87-1.13) 10/13/19 22:23 APTT 30.9 Sec. (24.2-36.6) 10/13/19 22:23 Sodium 141 mmol/L (137-145) 10/15/19 04:35 Potassium 4.5 mmol/L (3.6-5.0) D 10/15/19 04:35 Chloride 96.8 mmol/L (98-107) L 10/15/19 04:35 Carbon Dioxide 26 mmol/L (22-30) D 10/15/19 04:35 Anion Gap 23 mmol/L 10/15/19 04:35 BUN 31 mg/dL (9-20) H 10/15/19 04:35 Creatinine 5.2 mg/dL (0.8-1.5) H 10/15/19 04:35 Estimated GFR 11 ml/min 10/15/19 04:35 BUN/Creatinine Ratio 6 % 10/15/19 04:35 Glucose 82 mg/dL (75-100) 10/15/19 04:35 POC Glucose 78 (70-105) 10/15/19 11:59 Calcium 8.0 mg/dL (8.4-10.2) L D 10/15/19 04:35 Total Bilirubin 0.40 mg/dL (0.1-1.2) 10/13/19 22:23 AST 21 units/L (5-40) 10/13/19 22:23 ALT 13 units/L (7-56) 10/13/19 22:23 Alkaline Phosphatase 105 units/L (35-129) 10/13/19 22:23 Troponin T 0.012 ng/mL (0.00-0.029) 10/14/19 01:04 Total Protein 7.2 g/dL (6.3-8.2) 10/13/19 22:23 Albumin 4.6 g/dL (3.9-5) 10/13/19 22:23 Albumin/Globulin Ratio 1.8 % 10/13/19 22:23 Hepatitis A IgM Ab Non-reactive (NonReactive) 10/14/19 13:14 Hep Bs Antigen Non-reactive (Negative) 10/14/19 13:14 Hep B Core IgM Ab Non-reactive (NonReactive) 10/14/19 13:14 Hepatitis C Antibody Non-reactive (NonReactive) 10/14/19 13:14 Blood Type A POSITIVE 10/14/19 08:32 Antibody Screen Negative 10/14/19 08:32 Active Medications - Current Medications Current Medications: Generic Name Dose Route Start Last Admin Trade Name Freq PRN Reason Stop Dose Admin Amlodipine Besylate 10 mg 10/15/19 10:00 10/15/19 09:17 Amlodipine PO 10 mg QDAY DEIRDRE Administration Clonidine HCl 0.2 mg 10/15/19 09:00 10/15/19 09:17 Catapres PO 0.2 mg Q8HR DEIRDRE Administration Hydralazine HCl 10 mg 10/14/19 22:09 10/15/19 09:18 Apresoline IV 10 mg Q4H PRN Administration Blood Pressure Hydralazine HCl 100 mg 10/15/19 09:00 10/15/19 09:17 Apresoline PO 100 mg TID DEIRDRE Administration Pantoprazole Sodium 80 mg/ 100 mls @ 10 mls/hr 10/14/19 08:00 10/15/19 06:52 Sodium Chloride IV 8 mg/hr DIRECT DEIRDRE 10 mls/hr Administration 8 MG/HR Sodium Chloride 100 mls @ 999 mls/hr 10/14/19 14:30 Nacl 0.9% IV TAY PRN Hypotension Metoclopramide HCl 10 mg 10/14/19 16:00 10/15/19 05:31 Reglan IV 10 mg Q6H DEIRDRE Administration Ondansetron HCl 4 mg 10/14/19 11:58 10/14/19 12:40 Zofran IV 4 mg Q4H PRN Administration Nausea And Vomiting
[2019-10-15] MEDS: SUCRALFATE 1 GM/10 ML ORAL LIQD PO SCH (20:58)
[2019-10-15] MEDS: PANTOPRAZOLE 40 MG INJ IV SCH ×2 (20:59→21:01)
[2019-10-16] MEDS: SUCRALFATE 1 GM/10 ML ORAL LIQD PO SCH ×5 (00:10→17:00)
[2019-10-16] MEDS: hydrALAZINE 20 MG/1 ML INJ IV PRN ×3 (02:40→16:55)
[2019-10-16] MEDS: METOCLOPRAMIDE 10 MG/2 ML INJ IV SCH ×3 (03:03→16:56)
[2019-10-16] MEDS: cloNIDine 0.2 MG TAB PO SCH ×3 (04:22→16:54)
[2019-10-16] MEDS: hydrALAZINE 100 MG TAB PO SCH ×2 (07:45→16:54)
[2019-10-16] MEDS: PANTOPRAZOLE 40 MG INJ IV SCH (10:24)
[2019-10-16] MEDS: amLODIPine 10 MG TAB PO SCH (10:24)
--- NOTE | 2019-10-16 13:49 | Discharge Summary ---
Providers - Providers Date of Admission: 10/14/19 09:19 Date of discharge: 10/16/19 Attending physician: MATTHEW OROZCO 10/14/19 09:29 Consult to Physician [CONS] Routine Comment: Dr. 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 2.Follow up with Dr. Valenzuela, GI in 1-2 weeks 3.Continue routine hemodialysis as scheduled Follow up with: PRIMARY CAREMD [Primary Care Provider] - 3-5 Days Prescriptions: Sucralfate [Carafate] 1 gm PO Q6HR 30 Days oral.liqd Pantoprazole [Protonix TAB] 40 mg PO BID #60
--- NOTE | 2019-10-16 14:28 | Progress Note ---
Assessment and Plan This is a 64 year old man who presents with concern for GI bleed. # ESRD: - dialyzed on admission for hyperkalemia, continue HD // or prn labs/volume. Had HD today - daily labs - renally dose meds - avoid nephrotoxins - renal diet # Hyperkalemia: improved s/p HD # Metabolic Acidosis: improved s/p HD # Anemia: last hemoglobin 10.7. Appreciate GI input. No indication for RICK with HD # HTN: UF as tolerated. BP remains high. May need additional BP agent, just started on labetalol per primary team # Secondary Hyperparathyroidism: continue home binders as needed. Use higher Ca bath given hypocalcemia, continue vitamin D analog with HD. Did improved with IV calcium per primary team Subjective Date of service: 10/16/19 Principal diagnosis: coffee ground emesis Interval history: No acute issues noted. Tolerated HD well today, without concerns this afternoon. Objective - Exam Narrative Exam: Constitutional: no acute distress Head: NC/AT Neck: supple Lungs: clear to auscultation CV: RRR, no M/R/G Abdomen: soft, non-tender, bowel sounds present Back: nontender Extremities: no edema, pulses WNL. AVF intact Skin: intact Neuro: no focal deficits, alert and oriented x4 - Vital Signs Vital signs: Vital Signs - 12hr 10/16/19 10/16/19 10/16/19 03:51 04:18 04:22 Temperature Pulse Rate 68 73 72 Respiratory Rate Blood Pressure 167/53 167/53 O2 Sat by Pulse 97 Oximetry 10/16/19 10/16/19 10/16/19 07:30 07:43 08:27 Temperature 98.8 F Pulse Rate 73 73 75 Respiratory 18 Rate Blood Pressure 200/67 200/67 179/63 O2 Sat by Pulse 96 95 Oximetry 10/16/19 10/16/19 10/16/19 10:24 10:48 12:30 Temperature Pulse Rate 75 72 Respiratory Rate Blood Pressure 179/63 165/69 O2 Sat by Pulse 97 Oximetry 10/16/19 10/16/19 10/16/19 12:45 13:00 13:15 Temperature Pulse Rate 72 72 72 Respiratory Rate Blood Pressure 166/69 167/67 174/71 O2 Sat by Pulse Oximetry 10/16/19 10/16/19 10/16/19 13:30 13:45 13:57 Temperature 98.8 F Pulse Rate 71 76 74 Respiratory 18 Rate Blood Pressure 170/64 176/79 165/69 O2 Sat by Pulse Oximetry - Lab 10/15/19 04:35 10/15/19 04:35 Most recent lab results Calcium 8.0 mg/dL (8.4-10.2) L D 10/15/19 04:35 Medications & Allergies - Medications Allergies/Adverse Reactions: Allergies No Known Allergies Allergy (Verified 01/16/19 10:10) Home Medications: Home Medications Medication Instructions Recorded Confirmed Last Taken Type NIFEdipine XL [Procardia Xl] 60 mg PO BID #60 06/22/19 10/16/19 Unknown Rx cloNIDine [Catapres] 0.2 mg PO TID #90 06/22/19 10/16/19 Unknown Rx hydrALAZINE [Apresoline TAB] 100 mg PO TID #90 tab 06/22/19 10/16/19 Unknown Rx labetaloL [Labetalol 200mg TAB] 200 mg PO QID #120 06/22/19 10/16/19 Unknown Rx Lipase/Protease/Amylase [Creon Dr 1 cap PO TIDWM 10/16/19 10/16/19 Unknown History 24,000 Units Capsule] Pantoprazole [Protonix TAB] 40 mg PO BID #60 10/16/19 Unknown Rx Sucralfate [Carafate] 1 gm PO Q6HR 30 Days oral.liqd 10/16/19 Unknown Rx Vit B Comp No.3/Folic/C/Biotin 1 each PO DAILY 10/16/19 10/16/19 Unknown History [Maritza-Etsher Rx Tablet] chlorproMAZINE [Thorazine] 25 mg PO Q6H PRN 10/16/19 10/16/19 Unknown History glipiZIDE [Glucotrol] 5 mg PO BID 10/16/19 10/16/19 Unknown History hydrOXYzine HCL [Atarax] 25 mg PO PRN PRN 10/16/19 10/16/19 Unknown History oxyCODONE /ACETAMINOPHEN [Percocet 1 tab PO Q4HR PRN 10/16/19 10/16/19 Unknown History 5/325 mg] Active Medications: Generic Name Dose Route Start Last Admin Trade Name Freq PRN Reason Stop Dose Admin Amlodipine Besylate 10 mg 10/15/19 10:00 10/16/19 10:24 Amlodipine PO 10 mg QDAY DEIRDRE Administration Clonidine HCl 0.2 mg 10/15/19 09:00 10/16/19 06:19 Catapres PO Not Given Q8HR DEIRDRE Hydralazine HCl 100 mg 10/15/19 09:00 10/16/19 07:45 Apresoline PO 100 mg TID DEIRDRE Administration Hydralazine HCl 20 mg 10/15/19 18:24 10/16/19 07:43 Apresoline IV 20 mg Q4H PRN Administration Blood Pressure Sodium Chloride 100 mls @ 999 mls/hr 10/14/19 14:30 Nacl 0.9% IV TAY PRN Hypotension Labetalol HCl 200 mg 10/15/19 18:00 10/16/19 10:24 Labetalol PO 200 mg BID DEIRDRE Administration Metoclopramide HCl 10 mg 10/14/19 16:00 10/16/19 10:29 Reglan IV 10 mg Q6H DEIRDRE Administration Ondansetron HCl 4 mg 10/14/19 11:58 10/14/19 12:40 Zofran IV 4 mg Q4H PRN Administration Nausea And Vomiting Pantoprazole Sodium 40 mg 10/15/19 20:00 10/16/19 10:24 Protonix IV 10/16/19 23:59 40 mg BID DEIRDRE Administration Pantoprazole Sodium 40 mg 10/17/19 10:00 Protonix PO BID DEIRDRE Sucralfate 1 gm 10/15/19 20:14 10/16/19 12:14 Carafate PO 1 gm Q6HR DEIRDRE Administration
[2019-10-16 17:43] VITALS: BP 160/55
[2019-10-17] MEDS ORDERED: PANTOPRAZOLE 40 MG TAB PO SCH (10:00)
== END 2019-10-16 18:45 | disposition home or self-care (01) | DRG 377 ==
LOC: ED 21:49 → IMCU 10-14 09:19 → 2B-ACE 10-15 20:01
PROVIDERS: ADMIT Internal Medicine; ATTEND Internal Medicine
PROC: 5A1D70Z Performance of Urinary Filtration, Intermittent, Less than 6 Hours Per Day (ICD-10-PCS; principal; 2019-10-14)
PROC: 5A1D70Z Performance of Urinary Filtration, Intermittent, Less than 6 Hours Per Day (ICD-10-PCS; 2019-10-16)
DX: K92.2 Gastrointestinal hemorrhage, unspecified (principal); N18.6 End stage renal disease; E87.2 Acidosis; N25.81 Secondary hyperparathyroidism of renal origin; I13.2 Hypertensive heart and chronic kidney disease with heart failure and with stage 5 chronic kidney disease, or end stage renal disease; K92.0 Hematemesis; E87.5 Hyperkalemia; I25.10 Atherosclerotic heart disease of native coronary artery without angina pectoris; K21.9 Gastro-esophageal reflux disease without esophagitis; D64.9 Anemia, unspecified; I16.0 Hypertensive urgency; E11.22 Type 2 diabetes mellitus with diabetic chronic kidney disease; I50.9 Heart failure, unspecified; E78.5 Hyperlipidemia, unspecified; E83.51 Hypocalcemia; Z99.2 Dependence on renal dialysis; Z79.899 Other long term (current) drug therapy; Z82.49 Family history of ischemic heart disease and other diseases of the circulatory system; Z83.3 Family history of diabetes mellitus; Z86.718 Personal history of other venous thrombosis and embolism
CPT/HCPCS: 36415; 71046; 80048; 80053; 80074; 82962; 84484; 85025; 85027; 85610; 85730; 86850; 86900; 86901; 87116; 93005; 93010; 96374; G0378; C9113; J0360; J0610; J1200; J1815; J2405; J2765; Q0162

== ENCOUNTER 2020-07-22 11:26 | Emergency (ER) | payer MEDICARE ==
--- NOTE | 2020-07-22 11:53 | Emergency Department Report ---
Blank Doc - Documentation Documentation: 64-year-old male that presents with hematuria and was sent by his nehprologist. This initial assessment/diagnostic orders/clinical plan/treatment(s) is/are subject to change based on patient's health status, clinical progression and re- assessment by fellow clinical providers in the ED. Further treatment and workup at subsequent clinical providers discretion. Patient/guardians urged not to elope from the ED as their condition may be serious if not clinically assessed and managed. Initial orders include: 1- Patient sent to MAIN ED for further evaluation and treatment 2- labs 3- UA
[2020-07-22 13:12] LABS: Basophils % (Auto) 0.6 % (0.0-1.8); Eosinophils # (Auto) 0.4 K/mm3 (0.0-0.4); Eosinophils % (Auto) 7.5 % (0.0-4.3); Hematocrit 31.2 % (35.5-45.6); Hemoglobin 10.9 gm/dl (11.8-15.2); Lymphocytes # (Auto) 0.4 K/mm3 (1.2-5.4); Lymphocytes % (Auto) 7.5 % (13.4-35.0); Mean Corpuscular HGB Conc 35 % (32-34); Mean Corpuscular Volume 92 fl (84-94); Monocytes # (Auto) 0.3 K/mm3 (0.0-0.8); Monocytes % (Auto) 5.4 % (0.0-7.3); Platelet Count 100 K/mm3 (140-440); Red Blood Count 3.42 M/mm3 (3.65-5.03)
[2020-07-22 13:22] LABS: INR 1.07 (0.87-1.13); Partial Thromboplastin Time 26.8 Sec. (24.2-36.6)
[2020-07-22 13:29] LABS: Albumin 4.3 g/dL (3.9-5); Calcium 9.5 mg/dL (8.4-10.2)
--- NOTE | 2020-07-22 13:32 | Emergency Department Report ---
ED General Adult HPI - General Chief complaint: Urogenital-Male Stated complaint: BLOOD IN URINE Time Seen by Provider: 07/22/20 11:52 Source: patient Mode of arrival: Ambulatory Limitations: No Limitations - History of Present Illness Initial comments: Patient 64-year-old male past medical history of end-stage renal disease on dialysis who presents with hematuria patient states that he only has a few drops of blood when he urinates has happened before a couple years ago 2. Patient denies have any nausea or vomiting or any shortness of breath or any chest pain. He was sent over by the renal clinic for evaluation. Patient denies any penile trauma - Related Data Home Medications Medication Instructions Recorded Confirmed Last Taken Lipase/Protease/Amylase [Jamaal Dr 1 cap PO TIDWM 10/16/19 10/16/19 Unknown 24,000 Units Capsule] Vit B Comp No.3/Folic/C/Biotin 1 each PO DAILY 10/16/19 10/16/19 Unknown [[facility] Rx Tablet] chlorproMAZINE [Thorazine] 25 mg PO Q6H PRN 10/16/19 10/16/19 Unknown glipiZIDE [Glucotrol] 5 mg PO BID 10/16/19 10/16/19 Unknown hydrOXYzine HCL [Atarax] 25 mg PO PRN PRN 10/16/19 10/16/19 Unknown oxyCODONE /ACETAMINOPHEN [Percocet 1 tab PO Q4HR PRN 10/16/19 10/16/19 Unknown 5/325 mg] Previous Rx's Medication Instructions Recorded Last Taken Type NIFEdipine XL [Procardia Xl] 60 mg PO BID #60 06/22/19 Unknown Rx cloNIDine [Catapres] 0.2 mg PO TID #90 06/22/19 Unknown Rx hydrALAZINE [Apresoline TAB] 100 mg PO TID #90 tab 06/22/19 Unknown Rx labetaloL [Labetalol 200mg TAB] 200 mg PO QID #120 06/22/19 Unknown Rx Pantoprazole [Protonix TAB] 40 mg PO BID #60 10/16/19 Unknown Rx Sucralfate [Carafate] 1 gm PO Q6HR 30 Days oral.liqd 10/16/19 Unknown Rx Allergies Allergy/AdvReac Type Severity Reaction Status Date / Time No Known Allergies Allergy Verified 01/16/19 10:10 ED Review of Systems ROS: Stated complaint: BLOOD IN URINE Other details as noted in HPI Constitutional: denies: chills, fever Eyes: denies: eye pain, eye discharge, vision change ENT: denies: ear pain, throat pain Respiratory: denies: cough, shortness of breath, wheezing Cardiovascular: denies: chest pain, palpitations Endocrine: no symptoms reported Gastrointestinal: denies: abdominal pain, nausea, diarrhea Genitourinary: hematuria. denies: urgency, dysuria Musculoskeletal: denies: back pain, joint swelling, arthralgia Skin: denies: rash, lesions Neurological: denies: headache, weakness, paresthesias Psychiatric: denies: anxiety, depression Hematological/Lymphatic: denies: easy bleeding, easy bruising ED Past Medical Hx - Past Medical History Hx Hypertension: Yes Hx Congestive Heart Failure: Yes Hx Diabetes: Yes Hx Deep Vein Thrombosis: Yes Hx GERD: Yes Hx Renal Disease: Yes (ESRD, dialysis T ) Additional medical history: Anemia and renal disease, iron deficiency, secondary hypoparathyroidism of renal origin - Surgical History Additional Surgical History: left arm AV grafts no longer working. Port to right chest. eyes - Social History Smoking Status: Never Smoker - Medications Home Medications: Home Medications Medication Instructions Recorded Confirmed Last Taken Type NIFEdipine XL [Procardia Xl] 60 mg PO BID #60 06/22/19 10/16/19 Unknown Rx cloNIDine [Catapres] 0.2 mg PO TID #90 06/22/19 10/16/19 Unknown Rx hydrALAZINE [Apresoline TAB] 100 mg PO TID #90 tab 06/22/19 10/16/19 Unknown Rx labetaloL [Labetalol 200mg TAB] 200 mg PO QID #120 06/22/19 10/16/19 Unknown Rx Lipase/Protease/Amylase [Creon Dr 1 cap PO TIDWM 10/16/19 10/16/19 Unknown History 24,000 Units Capsule] Pantoprazole [Protonix TAB] 40 mg PO BID #60 10/16/19 Unknown Rx Sucralfate [Carafate] 1 gm PO Q6HR 30 Days oral.liqd 10/16/19 Unknown Rx Vit B Comp No.3/Folic/C/Biotin 1 each PO DAILY 10/16/19 10/16/19 Unknown History [[facility] Rx Tablet] chlorproMAZINE [Thorazine] 25 mg PO Q6H PRN 10/16/19 10/16/19 Unknown History glipiZIDE [Glucotrol] 5 mg PO BID 10/16/19 10/16/19 Unknown History hydrOXYzine HCL [Atarax] 25 mg PO PRN PRN 10/16/19 10/16/19 Unknown History oxyCODONE /ACETAMINOPHEN [Percocet 1 tab PO Q4HR PRN 10/16/19 10/16/19 Unknown History 5/325 mg] ED Physical Exam - General Limitations: No Limitations General appearance: alert, in no apparent distress - Head Head exam: Present: atraumatic, normocephalic - Eye Eye exam: Present: normal appearance - ENT ENT exam: Present: mucous membranes moist - Neck Neck exam: Present: normal inspection - Respiratory Respiratory exam: Present: normal lung sounds bilaterally. Absent: respiratory distress - Cardiovascular Cardiovascular Exam: Present: regular rate, normal rhythm. Absent: systolic murmur, diastolic murmur, rubs, gallop - GI/Abdominal GI/Abdominal exam: Present: soft, normal bowel sounds - Rectal Rectal exam: Present: deferred - Extremities Exam Extremities exam: Present: normal inspection - Back Exam Back exam: Present: normal inspection - Neurological Exam Neurological exam: Present: alert, oriented X3 - Psychiatric Psychiatric exam: Present: normal affect, normal mood - Skin Skin exam: Present: warm, dry, intact, normal color. Absent: rash ED Course Vital Signs 07/22/20 07/22/20 07/22/20 11:36 12:07 12:30 Temperature 97.6 F Pulse Rate 68 63 Respiratory 18 18 13 Rate Blood Pressure 177/48 199/58 O2 Sat by Pulse 100 99 99 Oximetry ED Medical Decision Making - Lab Data Result diagrams: 07/22/20 12:50 07/22/20 12:50 Lab Results 07/22/20 07/22/20 07/22/20 Range/Units 12:50 12:50 12:50 WBC 5.9 (4.5-11.0) K/mm3 RBC 3.42 L (3.65-5.03) M/mm3 Hgb 10.9 L (11.8-15.2) gm/dl Hct 31.2 L (35.5-45.6) % MCV 92 (84-94) fl MCH 32 (28-32) pg MCHC 35 H (32-34) % RDW 18.0 H (13.2-15.2) % Plt Count 100 L (140-440) K/mm3 Lymph % (Auto) 7.5 L (13.4-35.0) % [place] % (Auto) 5.4 (0.0-7.3) % Eos % (Auto) 7.5 H (0.0-4.3) % Baso % (Auto) 0.6 (0.0-1.8) % Lymph # (Auto) 0.4 L (1.2-5.4) K/mm3 [place] # (Auto) 0.3 (0.0-0.8) K/mm3 Eos # (Auto) 0.4 (0.0-0.4) K/mm3 Baso # (Auto) 0.0 (0.0-0.1) K/mm3 Seg Neutrophils % 79.0 H (40.0-70.0) % Seg Neutrophils # 4.7 (1.8-7.7) K/mm3 PT 13.8 (12.2-14.9) Sec. INR 1.07 (0.87-1.13) APTT 26.8 (24.2-36.6) Sec. Sodium 137 (137-145) mmol/L Potassium 4.1 (3.6-5.0) mmol/L Chloride 96.4 L (98-107) mmol/L Carbon Dioxide 31 H (22-30) mmol/L Anion Gap 14 mmol/L BUN 10 (9-20) mg/dL Creatinine 2.6 H (0.8-1.3) mg/dL Estimated GFR 25 ml/min BUN/Creatinine Ratio 4 % Glucose 146 H (75-100) mg/dL Calcium 9.5 (8.4-10.2) mg/dL Total Bilirubin 0.60 (0.1-1.2) mg/dL AST 17 (5-40) units/L ALT 9 (7-56) units/L Alkaline Phosphatase 101 (35-129) units/L Total Protein 7.3 (6.3-8.2) g/dL Albumin 4.3 (3.9-5) g/dL Albumin/Globulin Ratio 1.4 % - Radiology Data Radiology results: report reviewed, image reviewed CT scan shows no acute abdominal process - Medical Decision Making Chief medical diagnosis: Hematuria secondary to end-stage renal disease Differential medical diagnosis: [place] urea, electrolyte abnormality I will get CAT scan CBC BMP and I will reevaluate the patient Patient is feeling fine I will discharge patient home Critical care attestation.: If time is entered above; I have spent that time in minutes in the direct care of this critically ill patient, excluding procedure time. ED Disposition Clinical Impression: Hematuria Qualifiers: Hematuria type: other microscopic Qualified Code(s): R31.29 - Other microscopic hematuria; R31.2 - Other microscopic hematuria Disposition: DC- TO HOME OR SELFCARE Is pt being admited?: No Does the pt Need Aspirin: No Condition: Stable Instructions: Hematuria, Adult Referrals: MOSHE AGUILAR MD [Staff Physician] - 3-5 Days
--- NOTE | 2020-07-22 13:55 | Cat Scan Report ---
CT abdomen pelvis wo con INDICATION / CLINICAL INFORMATION: hematuria. TECHNIQUE: All CT scans at this location are performed using CT dose reduction for ALARA by means of automated e xposure control. COMPARISON: 07/01/2019 FINDINGS: Chronic bibasilar pleural-parenchymal disease is again seen unchanged from the prior examination. A s mall pericardial effusion is present. No free fluid is seen in the abdomen. Diffuse atherosclerotic c hanges present without evidence of an aneurysm. Tiny cysts are again seen in both kidneys unchanged. The liver, spleen, pancreas and adrenal glands are normal. No enlarged mesenteric or retroperitoneal lymph nodes are identified. In the pelvis, no free fluid is seen. No enlarged lymph nodes are identified. Moderate fecal material seen throughout the colon. The bladder is minimally distended. No significant skeletal abnormality i s seen. IMPRESSION: 1. Chronic changes in both lung bases unchanged from 07/01/2019 2. Small pericardial effusion 3. Diffuse atherosclerotic change without evidence of an aneurysm 4. Tiny renal cysts unchanged 5. Moderate fecal material throughout the colon Signer Name: Hira Payne MD FACR Signed: 07/22/2020 1:50 PM Workstation Name: [id number]
[2020-07-22 18:32] VITALS: BP 180/88
== END 2020-07-22 15:00 | disposition home or self-care (01) ==
LOC: ED 11:26
DX: R31.9 Hematuria, unspecified (principal); I11.0 Hypertensive heart disease with heart failure; I50.9 Heart failure, unspecified; E11.9 Type 2 diabetes mellitus without complications; K21.9 Gastro-esophageal reflux disease without esophagitis; Z86.718 Personal history of other venous thrombosis and embolism; Z98.890 Other specified postprocedural states; Z79.899 Other long term (current) drug therapy
CPT/HCPCS: 36415; 74176; 80053; 85025; 85610; 85730; Q9967